=== PATIENT | male | born 1950 | race Caucasian/White ===

== ENCOUNTER → 2021-12-28 08:37 | Outpatient (BNVA) | payer MEDICARE, OTHER, SELFPAY | PROVIDERS: Family Provider Internal Medicine; Visit Provider Family Medicine | DX: Z51.81 Encounter for therapeutic drug level monitoring (principal); Z79.1 Long term (current) use of non-steroidal anti-inflammatories (NSAID); I10 Essential (primary) hypertension; Z00.00 Encounter for general adult medical examination without abnormal findings; E78.00 Pure hypercholesterolemia, unspecified; Z13.220 Encounter for screening for lipoid disorders | CPT/HCPCS: 80053; 80061; 84153; 85025 ==

== ENCOUNTER → 2022-05-10 09:47 | Outpatient (BNVA) | payer MEDICARE, OTHER, SELFPAY | PROVIDERS: Family Provider Internal Medicine; PCP Family Medicine; Visit Provider Internal Medicine Cardiovascular Disease | DX: I47.1 Supraventricular tachycardia (principal); I10 Essential (primary) hypertension; I65.29 Occlusion and stenosis of unspecified carotid artery; Z86.73 Personal history of transient ischemic attack (TIA), and cerebral infarction without residual deficits; E78.00 Pure hypercholesterolemia, unspecified | CPT/HCPCS: 80048; 83735; 84443; 99204 ==

== ENCOUNTER 2022-07-17 10:50 | Outpatient (CLI) | payer MEDICARE, OTHER, SELFPAY ==
--- NOTE | 2022-07-17 11:15 | USCV_ITS ---
Davidson Watts Age: 71 Gender: M : 1950 Exam Date: 07/17/2022 11:52 Ordering Phys: Shahnaz Alexandra MD ([email or web address]) Technologist: Loc Bueno Exam Location: [facility] [place] Indication: carotid stenosis Risk Factors: Previous Vascular Surgery: Right Brachial BP: / Left Brachial BP: / Right Left Velocity (cm/s) Spectral Plaque Velocity (cm/s) Spectral Plaque Syst/Diast Broadening Syst/Diast Broadening 76.10/ 18.40 Prox CCA 66.90 / 11.60 86.20/ 21.00 Mid CCA 61.80 / 10.20 65.70/ 14.50 Distal CCA 46.40 / 7.80 52.30/ 16.60 Prox ICA / 63.20/ 24.20 Mid ICA / 33.90/ 15.10 Distal ICA / 79.60 ECA 98.10 0.73 ICA/CCA Antegrade Vertebral Antegrade 56.50/ 22.30 cm/s 75.00/ 32.00 cm/s Tri Subclavian Tri 87.80 120.2 0 FINDINGS Comparison:. 01/10/18. Known occluded left ICA. Diffuse right carotid scattered calcified plaque and intimal thickening throughout the common carotid arteries and extending through the bifurcation. Antegrade vertebral arteries. CONCLUSIONS Right ICA stenosis < 50%. No interval change in stenosis since prior exam. Known occluded left ICA. Dr. Robyn Lomax DO (Electronically Signed) Final Date: 17 July 2022 13:08 S
== END 2022-07-17 10:51 | disposition home or self-care (01) ==
LOC: RAD 10:52
PROVIDERS: Family Provider Internal Medicine; PCP Family Medicine; Visit Provider Internal Medicine Cardiovascular Disease
DX: I65.23 Occlusion and stenosis of bilateral carotid arteries (principal)
CPT/HCPCS: 93306; 93880

== ENCOUNTER 2022-07-17 10:52 | Outpatient (CLI) | payer MEDICARE, OTHER, SELFPAY ==
--- NOTE | 2022-07-17 12:00 | USCV_ITS ---
Davidson Watts Age: 71 Gender: M : 1950 Exam Date: 07/17/2022 11:15 Ordering Phys: Shahnaz Alexandra MD ([email or web address]) Technologist: Loc Bueno Exam Location: [facility] [place] Indication: SOB, CP, SVT BP: 120 / 82 HR: 58 Rhythm: Other Technical Quality: Adequate MEASUREMENTS (Male / Female) Normal Values 2D ECHO LV Diastolic Diameter PLAX 1.2 cm 4.2 - 5.9 / 3.9 - 5.3 cm LV Systolic Diameter PLAX 0.8 cm IVS Diastolic Thickness 3.4 cm 0.6 - 1.0 / 0.6 - 0.9 cm IVS Systolic Thickness 1.5 cm LVPW Diastolic Thickness 0.0 cm 0.6 - 1.0 / 0.6 - 0.9 cm LVPW Systolic Thickness 1.6 cm LVOT Diameter 2.0 cm LV Ejection Fraction 2D Teich 67.7 % LV Ejection Fraction MOD 2C 68.3 % LV Ejection Fraction 2C AL 71.3 % LA Diameter 3.7 cm LA Width 3.4 cm LA Height 5.7 cm RA Width 4.0 cm RA Height 4.3 cm Aorta at Sinotubular Diameter 2.6 cm IVC Diameter 1.9 cm M-MODE Aortic Annulus Diameter 3.5 cm LA Ao Ratio MM 1.2 MV E Point Septal Separation 0.7 cm DOPPLER AV Peak Velocity 91.5 cm/s LVOT Peak Velocity 63.0 cm/s AV Area Cont Eq vti 2.1 cm squared AV Area Cont Eq pk 2.2 cm squared MV Peak Velocity 85.0 cm/s MV Area PHT 4.5 cm squared Mitral E to A Ratio 0.6 MV E' Velocity 22.0 cm/s Mitral E to MV E' Ratio 6.0 Mitral E to LV E' Lateral Ratio 5.6 Mitral E to LV E' Septal Ratio 6.4 TR Peak Velocity 258.8 cm/s TR Peak Gradient 26.8 mmHg TR Mean Velocity 204.0 cm/s TR Mean Gradient 17.5 mmHg TR Velocity Time Integral 88.6 cm Right Atrial Pressure 3.0 mmHg Pulmonary Artery Systolic Pressu 29.8 mmHg PV Peak Velocity 83.0 cm/s RV Acceleration Time 0.1 s RV Ejection Time 0.3 s RV AcT/ET 0.3 FINDINGS Left Ventricle Normal left ventricular size and systolic function, EF 64 %. Mild left ventricular hypertrophy.no regional wall motion abnormalities. Right Ventricle The right ventricle is normal in size and function. Right Atrium The right atrium is normal in size. Left Atrium The left atrium is normal in size. Mitral Valve No gross abnormalities noted Aortic Valve No gross abnormalities noted Tricuspid Valve Trace to mild tricuspid valve regurgitation. Estimated pulmonary artery peak systolic pressure 30 mmHg Pulmonic Valve Pulmonic valve not well visualized. Pericardium Normal pericardium without effusion. Aorta Normal ascending aorta dimension. IVC Normal inferior vena cava. CONCLUSIONS Normal left ventricular size and systolic function, EF 64 %. Mild left ventricular hypertrophy. No regional wall motion abnormalities. Trace to mild tricuspid valve regurgitation. Estimated pulmonary artery peak systolic pressure 30 mmHg. There is no pericardial effusion. There are no intracardiac masses. No similar previous studies are available for comparison Dr Anson Alcocer MD [facility] (Electronically Signed) Final Date: 17 July 2022 19:07 S
== END 2022-07-17 10:53 | disposition home or self-care (01) ==
LOC: RAD 10:53
PROVIDERS: Family Provider Internal Medicine; PCP Family Medicine; Visit Provider Internal Medicine Cardiovascular Disease
DX: I47.1 Supraventricular tachycardia (principal); R06.02 Shortness of breath; R07.9 Chest pain, unspecified; I07.1 Rheumatic tricuspid insufficiency
CPT/HCPCS: 36415; 82728; 83540; 83550; 85025; 93306; 96372; 99204; J3420

== ENCOUNTER 2022-09-07 08:52 | Outpatient (CLI) | payer MEDICARE, OTHER, SELFPAY ==
--- NOTE | 2022-09-07 | ECG_ITS ---
[facility] Test Date: 2022-09-07 Pat Name: Davidson Watts Department: Room: Gender: Male Logistics And Planning Manager: Janette Meredith : 1950 Requested By: Shahnaz Alexandra Order Number: [id number] Chivo MD: Shahnaz Alexandra M.D. Interpretive Statements NAME OF STUDY: EXERCISE SESTAMIBI STRESS TEST INDICATION: Chest Pain; Dyspnea on Exertion Baseline blood pressure of 154/88 mm Hg, heart rate of 76 beats per minute and oxygen saturation of 92%. EKG showed sinus rhythm with frequent PVC's and PAC's. Non specific ST-T wave changes. ??? The patient exercised for 5 minutes and 9 seconds on a [standard Moiz protocol]. Patient attained a maximum heart rate of 148 beats per minute( 107 % of the maximum predicted heart rate) with a blood pressure at the peak exercise of 182/106 mm Hg, heart rate of 148 bpm and oxygen saturation of 93%. The EKG at the peak exercise revealed sinus tachycardia with frequent PAC's and PVC's. Patient did not have any chest pain or any significant arrhythmis with the exercise.??? During the recovery phase, patient went into SVT with non specific ST-T wave chnages. ??? Blood pressure at the end of the recovery phase was 108/83 mm Hg with a heart rate of 82 beats per minute and oxygen saturation of 93%. ??? CONCLUSION: 1. Normal EKG response to treadmill exercise. 2. No exercise-induced chest pain or cardiac arrhythmia. 3. Fair exercise tolerance, attained a maximum of 7 METs. 4. Baseline hypertension with normal response to exercise. 5. Patient went into SVT 11 minutes into recovery that resolved spontaneously. 6. Perfusion scan will be documented separately. Electronically Signed On 09-17-2022 11:09:01 INFORMATION SECURITY ENGINEER by Shahnaz Alexandra M.D. [email or web address]
[2022-09-07 09:34] VITALS: BMI 31.0
--- NOTE | 2022-09-07 09:35 | NMCV_ITS ---
NM luc perf SPECT r/s* [id number] Davidson Watts Age: 71 Gender: M : 1950 Exam Date: 09/07/2022 09:35 Ordering Phys: Shahnaz Alexandra MD ([email or web address]) Technologist: PETROS Salgado Exam Location: [facility] Indications: SVT STRESS TEST Please see separate stress test report in [facility] for full findings IMAGE PROTOCOL Rest/Stress 1 Exercise Day Radiopharmaceutical Dose (mCi) Administration Site Administered by Rest: Tc-99m 10.9 IV PETROS Reyes Sestamibi Stress:Tc-99m 32.4 IV PETROS Reyes Sestamibi Rest: 07-Sep-2022 60 Discovery 630 Stress: 07-Sep-2022 15 Discovery 630 Radiopharmaceutical was injected at 87 % maximum heart rate. Images obtained in supine and prone position. SPECT RESULTS Technical Quality: Excellent Raw Data Analysis: Normal Image Corrections: No attenuation or motion correction applied Summed Stress Score: 0 Summed Rest Score: 0 Summed Difference Score: 0 PERFUSION FINDINGS SPECT images demonstrate homogeneous tracer distribution throughout the myocardium. FUNCTIONAL RESULTS (calculated via Gated SPECT) Stress Image LV EF (%): 66 Stress EDV (mL):85 TID: 1.51 Stress ESV (mL):29 FUNCTIONAL FINDINGS: The left ventricle is normal in size. Transient Ischemia Dilatation of 1.5. The left ventricular ejection fraction is normal with a value of 66%. There is normal left ventricular wall thickening. IMPRESSIONS 1. Myocardial perfusion imaging is normal. 2. Overall left ventricular systolic function is normal without regional wall motion abnormalities, LVEF=66%. 3. EKG portion of the study will be reported separately. 4. Scan indicates low risk for cardiac events. Shahnaz Alexandra MD (Electronically Signed) Final Date: 09 September 2022 20:00 S
[2022-09-07] MEDS: metoprolol tartrate 1 mg/1 mL SDV 5 mL 5 MG IV (10:57)
[2022-09-07 11:07] VITALS: BP 108/83; PULSE 80
== END 2022-09-07 08:53 | disposition home or self-care (01) ==
LOC: CDL 08:56
PROVIDERS: PCP Family Medicine; Visit Provider Internal Medicine Cardiovascular Disease
DX: I47.1 Supraventricular tachycardia (principal)
CPT/HCPCS: 36415; 78452; 93017; 96374; A9500; J3490

== ENCOUNTER → 2022-09-11 11:09 | Outpatient (BNVA) | payer MEDICARE, OTHER, SELFPAY | PROVIDERS: PCP Family Medicine; Visit Provider Internal Medicine Cardiovascular Disease | DX: I47.1 Supraventricular tachycardia (principal); I10 Essential (primary) hypertension; E78.00 Pure hypercholesterolemia, unspecified; I65.29 Occlusion and stenosis of unspecified carotid artery; Z86.73 Personal history of transient ischemic attack (TIA), and cerebral infarction without residual deficits | CPT/HCPCS: 99214; Q3014 ==

== ENCOUNTER → 2022-10-04 08:23 | Outpatient (BNVA) | payer MEDICARE, OTHER, SELFPAY | PROVIDERS: PCP Family Medicine; Visit Provider Family Medicine | DX: Z51.81 Encounter for therapeutic drug level monitoring (principal); Z13.220 Encounter for screening for lipoid disorders; R00.2 Palpitations | CPT/HCPCS: 80053; 80061; 83735; 85025 ==

== ENCOUNTER 2023-01-16 06:15 | Emergency (ER) | payer MEDICARE, OTHER, SELFPAY ==
[2023-01-16 06:20] VITALS: BMI 30.7
[2023-01-16 06:23] VITALS: BP 113/75; PULSE 58; RESP 17; TEMP 36.6; O2SAT 96
[2023-01-16 06:30] VITALS: O2SAT 95
--- NOTE | 2023-01-16 06:32 | W.ED.ALLEREA ---
HPI - Allergic Reaction General: Chief complaint: Allergic Reaction Stated complaint: Tongue swollen, trouble talking Time Seen by Provider: 01/16/23 06:21 Source: patient Mode of arrival: ambulatory History of Present Illness: HPI narrative: 72-year-old male presents emergency room complaining of swelling of the lips and the right cheek it began yesterday then overnight he began to notice some swelling of his tongue exam difficulty breathing or swallowing but his voice is somewhat muffled because of the swelling of his tongue is difficult time with enunciation of words. He denies any chest pain no swelling of the lower extremities. Onset (ago): day(s) Exposure: medication (Possibly lisinopril) Associated symptoms: Reports tongue swelling; Deny abdominal pain, difficulty breathing, dysphagia, dizziness, facial swelling, hoarseness, itching, lip swelling, nausea, rash or vomiting Severity: mild Treatment prior to arrival: none Previous Allergic Reaction History: none Review of Systems Const: Denies: fever(s), chills, body aches, change in appetite, fatigue or malaise ENMT: Reports: swelling of lips/tongue; Denies: hoarseness Card: Denies: chest pain, edema, dyspnea on exertion or orthopnea Resp: Denies: dyspnea, productive cough or non-productive cough GI: Denies: abdominal pain, nausea, vomiting or dysphagia : Denies: dysuria, urinary frequency or urinary urgency Skin/Breast: Denies: rash or pruritus Neuro: Denies: dizziness All/Imm: Reports: tongue swelling; Denies: facial swelling PFSH ED PFSH: Medical History Carotid stenosis History of CVA (cerebrovascular accident) Follows with Dr Osuna - 04/27/2016 Hypercholesterolemia Surgical History S/P hernia surgery S/P knee surgery Family History Father CHF (congestive heart failure) Hypertension Diabetes Mother Stroke Hypertension Diabetes Social History Smoking and tobacco status: never smoked Physical Exam Const: GENERAL APPEARANCE: cooperative and comfortable ORIENTATION/CONSCIOUSNESS: Yes awake, Yes oriented to person, Yes oriented to place and Yes oriented to time HENMT: COMMON NORMALS: normocephalic, atraumatic and hearing grossly normal bilaterally HEAD & SCALP: normocephalic and atraumatic OTHER: Mild swelling of the tongue slightly asymmetric greater on the right than the left otherwise oropharynx normal Resp: COMMON NORMALS: normal respiratory effort, No retractions, No use of accessory muscles and clear to auscultation bilaterally AUSCULTATION: clear to auscultation bilaterally Cardio: COMMON NORMALS: regular rate, regular rhythm and No murmurs present (Cardio) RATE: regular rate RHYTHM: regular rhythm GI: COMMON NORMALS: Soft to palpation and No hepatosplenomegaly present AUSCULTATION: Yes normoactive bowel sounds PALPATION: Yes Soft to palpation, No Tenderness to palpation present (GI), No Guarding due to palpation present (GI) and Yes No hepatosplenomegaly present Extremity: COMMON NORMALS: normal to inspection, capillary refill normal, no clubbing, cyanosis or edema, no calf tenderness and no pedal edema Neuro: SENSORIUM/ORIENTATION: Yes oriented to person, Yes oriented to place and Yes oriented to time Skin: COMMON NORMALS: no rashes or lesions noted GENERAL SKIN EXAM: no rashes or lesions noted Course Vital Signs: Vital signs: Vital Signs Temperature 97.9 F 01/16/23 06:23 Pulse Rate 58 L 01/16/23 06:23 Respiratory Rate 17 01/16/23 06:23 Blood Pressure 113/75 01/16/23 06:23 Pulse Oximetry 95 01/16/23 06:30 Oxygen Delivery Me thod Room Air 01/16/23 06:30 MDM - Allergic Reaction Medical Decision Making Significant improvement with the steroids H2 blockers and antihistamines. He is feeling much better we will stop him stop his lisinopril change him to valsartan 80 mg daily him follow-up with his doctor with a blood pressure log from home within the next 7 to 10 days return if he has worsening problems difficulty breathing or swallowing. Medical Records I reviewed the patient's medical records. Lab Data I reviewed the patient's lab results. Discharge Plan Discharge Patient Disposition: Home Clinical Impression: Allergic reaction Condition: Stable Prescriptions: New valsartan 80 mg tablet 80 mg PO DAILY Qty: 30 0RF Medrol (Brijesh) 4 mg tablets,dose pack See Rx Instructions .ROUTE .COMPLEX Qty: 21 0RF Rx Instructions: orally per package directions Discontinued lisinopril 10 mg tablet 10 mg PO DAILY Qty: 90 2RF No Action clopidogrel 75 mg tablet 75 mg PO DAILY glucos sul [id number] 550-30-1 mg capsule 1 cap PO BID latanoprost 0.005 % drops 1 drp ophthalmic (eye) DAILY metoprolol tartrate 25 mg tablet 25 mg PO BID Qty: 180 2RF meloxicam 7.5 mg tablet 7.5 mg PO DAILY Qty: 21 0RF atorvastatin 40 mg tablet See Rx Instructions .ROUTE .COMPLEX Qty: 90 3RF Dose Instruction: TAKE 1 TABLET BY MOUTH IN THE EVENING FOR CHOLESTEROL Rx Instructions: TAKE 1 TABLET BY MOUTH IN THE EVENING FOR CHOLESTEROL Discharge Orders: Discharge ED (Routine); Ordered 01/16/23 Ordered By: Azael Berman Referrals: Vineet Saucedo MD [Primary Care Provider] - Discharge Diet: Usual diet Discharge Activity: Increase activity as tolerated Patient Instructions: Opioid Safety, Pain Management Activity Restrictions/Additional Instructions: You were seen today after an allergic reaction. Suspected cause of the reaction was your lisinopril. Stop your lisinopril start valsartan 80 mg once daily. You should follow-up with your primary care doctor in 7 to 10 days. Keep a blood pressure monitoring log at home and bring it with you to your next doctor's appointment. Also start the oral prednisone taper tomorrow. 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
[2023-01-16] MEDS: dexamethasone 10 mg/mL INJ IVP (06:35)
[2023-01-16] MEDS: diphenhydrAMINE 50 mg/mL SDV 1mL IVP (06:35)
== END 2023-01-16 08:05 | disposition home or self-care (01) ==
PROVIDERS: Emergency Provider Family Medicine; PCP Family Medicine
DX: T78.40XA Allergy, unspecified, initial encounter (principal); Z79.02 Long term (current) use of antithrombotics/antiplatelets; Z86.73 Personal history of transient ischemic attack (TIA), and cerebral infarction without residual deficits
CPT/HCPCS: 96374; 96375; 99284; J1100; J1200; J3490

== ENCOUNTER 2023-03-05 16:04 | Emergency (ER) | payer MEDICARE, OTHER, SELFPAY ==
[2023-03-05 16:29] VITALS: BP 101/70; PULSE 93; RESP 18; TEMP 36.7; O2SAT 97; BMI 28.2
--- NOTE | 2023-03-05 17:33 | W.ED.HA ---
HPI - Headache General: Chief Complaint: Headache Stated Complaint: headache, eye problems Time Seen by Provider: 03/05/23 17:20 Source: patient Mode of arrival: ambulatory Limitations: no limitations History of Present Illness: 72-year-old male states that he had a headache this afternoon at 1 PM states it gradually worsened states he had some blurry vision with a headache and is since resolved over the last 2 hours he denies any headache currently denies any vision deficits currently he had no slurred speech or weakness states he is concerned as he had a history of stroke before denies any chest pain. Associated symptoms: Deny chest pain, fever(s), nausea, rash or vomiting Review of Systems Const: Denies: fever(s) or chills Eyes: Reports: blurry vision; Denies: eye discomfort ENMT: Denies: throat pain or dental pain Card: Denies: chest pain Resp: Denies: dyspnea GI: Denies: abdominal pain, nausea, vomiting or diarrhea Musc: Denies: neck pain or back pain Skin/Breast: Denies: rash Neuro: Reports: headache(s) Psych: Denies: depression PFSH ED PFSH: Medical History Carotid stenosis History of CVA (cerebrovascular accident) Follows with Dr Osuna - 04/27/2016 Hypercholesterolemia Surgical History S/P hernia surgery S/P knee surgery Family History Father CHF (congestive heart failure) Hypertension Diabetes Mother Stroke Hypertension Diabetes Social History Smoking and tobacco status: never smoked Physical Exam Const: COMMON NORMALS: no acute distress, patient oriented x3 and healthy appearing HENMT: COMMON NORMALS: normocephalic and atraumatic HEAD & SCALP: normocephalic and atraumatic Eye: COMMON NORMALS: Equal, round and reactive pupils present and EOMs intact bilaterally PUPIL: Yes Equal, round and reactive pupils present Neck/C-Spine: COMMON NORMALS: full ROM and supple Chest: COMMONS NORMALS: normal inspection of the chest and normal palpation of entire chest wall Resp: COMMON NORMALS: normal respiratory effort, No retractions, No use of accessory muscles and clear to auscultation bilaterally AUSCULTATION: clear to auscultation bilaterally Cardio: COMMON NORMALS: regular rate, regular rhythm and No murmurs present (Cardio) RATE: regular rate RHYTHM: regular rhythm GI: COMMON NORMALS: Normal to inspection, nondistended, normoactive bowel sounds present, Soft to palpation, non-tender and no masses PALPATION: Yes Soft to palpation Extremity: COMMON NORMALS: normal to inspection and full ROM Neuro: COMMON NORMALS: patient oriented x3, moves all extremities and no focal motor deficits CRANIAL NERVES: Yes CN normal except as noted SPEECH: speech normal GAIT: Yes Normal gait present MOTOR EXAM: 5/5 motor strength present throughout Psych: COMMON NORMALS: mental status grossly normal, Normal thought process present and cooperative THOUGHT PROCESS: Normal thought process present Skin: COMMON NORMALS: no rashes or lesions noted and no wounds GENERAL SKIN EXAM: no rashes or lesions noted Course Vital Signs: Vital signs: Vital Signs Temperature 98.0 F 03/05/23 16:29 Pulse Rate 93 03/05/23 16:29 Respiratory Rate 18 03/05/23 16:29 Blood Pressure 101/70 03/05/23 16:29 Pulse Oximetry 97 03/05/23 16:29 Oxygen Delivery Me thod Room Air 03/05/23 16:29 MDM - Headache Medical Decision Making Patient presents here with a headache that is since resolved this could have been a tension headache or migraine he states that its not the worst headache of his life he did have some blurry vision no other neurodeficits and he states that resolved after the headache resolved. He is on Plavix and statin does have a history of stroke no signs of acute stroke here no signs of a brain bleed his headaches completely resolved his exam here is benign he is stable for discharge follow-up with PCP as he has a appointment already scheduled next week and he is return if worsening. Discharge Plan Discharge Patient Disposition: Home Clinical Impression: Headache Condition: Stable Prescriptions: No Action valsartan 80 mg tablet 80 mg PO DAILY Qty: 90 0RF clopidogrel 75 mg tablet 75 mg PO DAILY glucos sul [id number]-C-Mn 550-30-1 mg capsule 1 cap PO BID latanoprost 0.005 % drops 1 drp ophthalmic (eye) DAILY atorvastatin 40 mg tablet See Rx Instructions .ROUTE .COMPLEX Qty: 90 3RF Dose Instruction: TAKE 1 TABLET BY MOUTH IN THE EVENING FOR CHOLESTEROL Rx Instructions: TAKE 1 TABLET BY MOUTH IN THE EVENING FOR CHOLESTEROL metoprolol tartrate 25 mg tablet 25 mg PO BID Qty: 180 2RF Discharge Orders: Discharge ED (Routine); Ordered 03/05/23 Ordered By: Liseth Love Referrals: Vineet Saucedo MD [Primary Care Provider] - 1-3 days Discharge Diet: Advance as tolerated Discharge Activity: Resume usual activity Patient Instructions: General Headache (ED) Coding Level of Care Code 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
== END 2023-03-05 17:44 | disposition home or self-care (01) ==
PROVIDERS: Emergency Provider Emergency Medicine; PCP Family Medicine
DX: R51.9 Headache, unspecified (principal); Z79.01 Long term (current) use of anticoagulants; Z79.02 Long term (current) use of antithrombotics/antiplatelets; Z79.899 Other long term (current) drug therapy; Z86.73 Personal history of transient ischemic attack (TIA), and cerebral infarction without residual deficits
CPT/HCPCS: 99282

== ENCOUNTER → 2023-03-12 08:10 | Outpatient (BNVA) | payer MEDICARE, OTHER, SELFPAY | PROVIDERS: PCP Family Medicine; Visit Provider Family Medicine | DX: R35.0 Frequency of micturition (principal); Z51.81 Encounter for therapeutic drug level monitoring | CPT/HCPCS: 80053; 84153; 85025 ==

== ENCOUNTER 2023-03-20 08:10 | Outpatient (CLI) | payer MEDICARE, OTHER, SELFPAY ==
--- NOTE | 2023-03-20 08:30 | FL_ITS ---
WS: [id number] ESOPHAGRAM WITH FLUOROSCOPY HISTORY: Dysphsia COMPARISON: None available. FLUOROSCOPY TIME: 1min [id number] # of spot films: Esophagus and swallowing function: Patient swallowed the barium mixture without difficulty. Beginning just below the mid esophageal level is a very coarse irregular nodular mucosal submucosal pattern th at extends to the esophagogastric junction. No Gastroesophageal reflux: Some of the nodular pattern may be secondary to intraluminal filling defects. Overall esophageal lume n diameter is reduced by over 50% throughout this long segment of at least 6 cm. Hiatal hernia: No hiatal hernia. FL/FL barium swallow [id number] IMPRESSION: The very irregular mucosal pattern persisted with minimal variation during several swallows but still could represent to some degree retained food debris proximal to a stricture at the esophagogastric junction however isn't p ossible to distinguish this from submucosal mucosal hypertrophic changes from e ither an inflammatory, infectious or neoplastic process. Recommend endoscopy fo r further assessment
== END 2023-03-20 08:11 | disposition home or self-care (01) ==
PROVIDERS: PCP Family Medicine; Visit Provider Family Medicine
DX: R13.10 Dysphagia, unspecified (principal); R93.3 Abnormal findings on diagnostic imaging of other parts of digestive tract
CPT/HCPCS: 74220

== ENCOUNTER → 2023-04-03 08:49 | Outpatient (BNVA) | payer MEDICARE, OTHER, SELFPAY | PROVIDERS: PCP Family Medicine; Visit Provider Surgery | DX: R13.10 Dysphagia, unspecified (principal) | CPT/HCPCS: 99203 ==

== ENCOUNTER 2023-04-06 11:26 | Emergency (ER) | payer MEDICARE, OTHER, SELFPAY ==
[2023-04-06 11:35] VITALS: PULSE 50; RESP 14; TEMP 36.8; O2SAT 96; BMI 28.1
[2023-04-06 11:39] VITALS: BP 86/56
--- NOTE | 2023-04-06 11:47 | USCV_ITS ---
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 Thrombus in right subclavian vein extends from proximal to distal and is noncompressible. Remainder of the upper extremity veins are patent. D/w Yevgeniy CORTES @ 1530 Leonard Zimmerman MD (Electronically Signed) Final Date: 06 April 2023 15:38 S
--- NOTE | 2023-04-06 11:47 | ED_ITS ---
Documented by User: SOPHIA Lara 04/06/23 17:25 HPI - Extremity Problem General: Chief complaint: Extremity Injury, Upper Stated complaint: sent by uc/lump in RT arm after blood draw Time Seen by Provider: 04/06/23 11:43 Source: patient Mode of arrival: ambulatory Limitations: no limitations History of Present Illness: 72yo Male presents with significant other for right arm swelling and pain that started 2 days ago. Patient reports he was seen at [facility] 1 week ago and had blood drawn in that arm. States he has not had any injury or trauma that he is aware of to that arm. Patient reports that he does take Plavix daily. Patient also was reported to have low blood pressure in triage and he stated he was recently placed on a new blood pressure medication. He denies fall, trauma, known injury, chest pain, lightheadedness, dizziness, any other concern at this time. Associated symptoms: Deny chest pain, fever(s) or rash Review of Systems Const: Denies: fever(s), chills or body aches Card: Denies: chest pain Resp: Denies: dyspnea GI: Denies: abdominal pain Musc: Reports: extremity pain (right arm) and extremity swelling (right arm) Skin/Breast: Denies: rash or erythema Neuro: Denies: headache(s) PFSH ED PFSH: Medical History Carotid stenosis History of CVA (cerebrovascular accident) Follows with Dr Osuna - 04/27/2016 Hypercholesterolemia Surgical History Hx of colonoscopy At least 5 years, Polyps were found S/P hernia surgery S/P knee surgery Family History Father CHF (congestive heart failure) Hypertension Diabetes Mother Stroke Hypertension Diabetes Social History Smoking and tobacco status: never smoked Physical Exam Const: COMMON NORMALS: no acute distress, patient oriented x3 and alert GENERAL APPEARANCE: cooperative OTHER: Patient is ambulatory to the exam room unassisted. He is sitting upright on stretcher in no acute distress. Significant other is at bedside HENMT: COMMON NORMALS: normocephalic, atraumatic and Normal external nose present HEAD & SCALP: normocephalic and atraumatic NOSE: Normal external nose present MOUTH: lip normal Eye: GENERAL EYE: appearance normal, both eyes and all related structures Neck/C-Spine: COMMON NORMALS: full ROM Chest: CHEST: Yes Symmetrical chest wall rise Resp: COMMON NORMALS: normal respiratory effort EFFORT & INSPECTION: No respiratory distress Cardio: COMMON NORMALS: regular rate RATE: regular rate OTHER: BP during exam 111/62 Extremity: OTHER: generalized swelling right arm. Tenderness to upper inner arm. +movement dista l. Radial pulse 2+, capillary refill < 3 sec Neuro: COMMON NORMALS: patient oriented x3 SENSORIUM/ORIENTATION: Yes alert Psych: COMMON NORMALS: cooperative Skin: COMMON NORMALS: no rashes or lesions noted GENERAL SKIN EXAM: no rashes or lesions noted Course ED course: EKG indicates a vent rate of 68, SR with PVC 1530: Notified by radiology that the ultrasound revealed extensive occlusive right jugular and right subclavian thrombus Chart review reveals carotid ultrasound 07/18 which indicates known occluded left ICA, right ICA stenosis less than 50% Reevaluation(s): Reevaluation #1: Discussed ultrasound findings with patient and family. Patient reports he has a history of clot in his neck, which caused a stroke. Discussed with patient this is somewhat different and we would proceed with labs and potential admission Time: 15:40 Consultations: Consultation #1: Dr Jaffe, hospitalist. Discussed HPI and ultrasound findings. Advise labs are pending. He will come down to see the patient. Time: 16:10 Vital Signs: Vital signs: Vital Signs Temperature 98.2 F 04/06/23 11:35 Pulse Rate 62 04/06/23 11:54 Respiratory Rate 15 04/06/23 11:54 Blood Pressure 111/62 04/06/23 11:54 Pulse Oximetry 97 04/06/23 11:54 Oxygen Delivery Me thod Room Air 04/06/23 11:35 MDM - Extremity (Nontraumatic) Medical Decision Making 72yo male here with his significant other for evaluation of right arm pain and swelling that have been ongoing for the past 2 days. Patient reports he had blood work about a week ago in that arm and does not know if it is related. Patient states that he does take Plavix daily. He was also reported to have hypotension in triage he denies any fall, trauma, known injury, headache, lightheadedness, dizziness, chest pain. Patient is nontoxic in appearance. Vital signs are stable. Ultrasound reveals an extensive thrombus to the right jugular and right subclavian. The thrombus in the right subclavian vein extends from proximal to distal and is noncompressible. Given this, labs were obtained and consult to hospitalist for admission. Discussed case with Dr. López, who who will consult on the patient and come to the ER to evaluate him with a plan of discharge on Eliquis. Differential Diagnosis Likely superficial thrombophlebitis and deep venous thrombosis of upper extremity Lab Data I reviewed the patient's lab results. 04/06/23 16:10 04/06/23 16:10 Laboratory Results WBC 8.7 10^3/uL (4.0-10.0) 04/06/23 16:10 RBC 5.32 10^6/uL (4.1-5.3) H 04/06/23 16:10 Hgb 15.7 g/dL (11.7-16.6) 04/06/23 16:10 Hct 47.7 % (42.0-52.0) 04/06/23 16:10 MCV 89.7 fl (80-94) 04/06/23 16:10 MCH 29.5 pg (28.0-34.0) 04/06/23 16:10 MCHC 32.9 g/dL (30.0-36.0) 04/06/23 16:10 RDW 13.9 % (12.1-15.1) 04/06/23 16:10 Plt Count 235 10^3/cmm (130-400) 04/06/23 16:10 MPV 12.0 fL (7.4-10.4) H 04/06/23 16:10 Neut % (Auto) 70.3 % 04/06/23 16:10 Lymph % (Auto) 18.3 % 04/06/23 16:10 [place] % (Auto) 9.9 % 04/06/23 16:10 Eos % (Auto) 0.9 % 04/06/23 16:10 Baso % (Auto) 0.5 % 04/06/23 16:10 Neut # (Auto) 6.08 10^3/uL (1.8-7.7) 04/06/23 16:10 Lymph # (Auto) 1.6 10^3/uL (0.8-4.8) 04/06/23 16:10 [place] # (Auto) 0.9 10^3/uL (0.2-0.9) 04/06/23 16:10 Eos # (Auto) 0.1 10^3/uL (0.0-0.8) 04/06/23 16:10 Baso # (Auto) 0.0 10^3/uL (0.0-0.1) 04/06/23 16:10 Nucleated RBC % (auto) 0 % 04/06/23 16:10 Nucleated RBCs # 0.0 /100WBC 04/06/23 16:10 PT 13.80 SECONDS (12.1-14.9) 04/06/23 16:10 INR 1.03 (0.8-1.2) 04/06/23 16:10 APTT 29.8 SECONDS (23.9-36.7) 04/06/23 16:10 Sodium 137 mmol/L (136-145) 04/06/23 16:10 Potassium 4.4 mmol/L (3.5-5.1) 04/06/23 16:10 Chloride 103 mmol/L (98-107) 04/06/23 16:10 Carbon Dioxide 23 mmol/L (22-29) 04/06/23 16:10 Anion Gap 15.4 (5-19) 04/06/23 16:10 BUN 12 mg/dL (8-23) 04/06/23 16:10 Creatinine 0.7 mg/dL (0.7-1.2) 04/06/23 16:10 GFR Calculation Not Reportable 04/06/23 16:10 Glucose 85 mg/dL (65-115) 04/06/23 16:10 Calculated Osmolality 283 mOsm/kg (285-295) L 04/06/23 16:10 Calcium 9.5 mg/dL (8.5-10.5) 04/06/23 16:10 Total Bilirubin 1.3 mg/dL (0.15-1.2) H 04/06/23 16:10 AST 15 U/L (0-40) 04/06/23 16:10 ALT 17 U/L (0-41) 04/06/23 16:10 Alkaline Phosphatase 126 U/L (40-130) 04/06/23 16:10 Total Protein 6.3 g/dL (6.6-8.7) L 04/06/23 16:10 Albumin 3.7 g/dL (3.5-5.2) 04/06/23 16:10 Globulin 2.6 g/dL (1.3-4.6) 04/06/23 16:10 Carcinoembryonic Ag 2.1 ng/mL (0.0-4.7) 04/06/23 16:10 CA 125 Antigen 12.9 U/mL (0-35) 04/06/23 16:10 Prostate Specific Ag 1.230 ng/mL (0-4) 04/06/23 16:10 Discharge Plan Discharge Patient Disposition: Home Clinical Impression: Acute internal jugular vein thrombosis, Subclavian vein thromboembolism, acute, Arm swelling Condition: Stable Prescriptions: New Eliquis DVT-PE Treat 30D Start 5 mg (74 tabs) tablets,dose pack See Rx Instructions .ROUTE .COMPLEX Qty: 74 0RF Rx Instructions: orally per package directions Continued valsartan 80 mg tablet 80 mg PO DAILY Qty: 90 0RF omeprazole 40 mg capsule,delayed release(DR/EC) 1 cap PO DAILY clopidogrel 75 mg tablet 75 mg PO DAILY glucos sul [id number] 550-30-1 mg capsule 1 cap PO BID latanoprost 0.005 % drops 1 drp ophthalmic (eye) QPM metoprolol tartrate 25 mg tablet 25 mg PO BID Qty: 180 2RF atorvastatin 40 mg tablet 40 mg PO QPM Discharge Orders: Discharge ED (Routine); Ordered 04/06/23 Ordered By: Rick Ang Referrals: Shoaib Jaffe MD [Hospitalist] - Vineet Saucedo MD [Primary Care Provider] - 4-7 days Discharge Diet: Usual diet Discharge Activity: Limit activity as instructed Patient Instructions: Apixaban (By mouth), Deep Vein Thrombosis (ED) Activity Restrictions/Additional Instructions: Thank you for visiting the emergency department. You were seen about a for arm swelling. The most likely cause of this is related to blood clot in the veins of your neck and chest. You will be initiated on anticoagulation. Please follow all instructions given by Dr. Jaffe. Return for worsening symptoms, new numbness or uncontrolled pain, any shortness of breath or chest pain, any new neurologic symptoms, any falls or bleeding, or anything else that you are concerned about and feel needs emergency department evaluation. Coding Level of Care Code ED Manager Transport for Chg Fwd Documented by User: Rick Ang MD 04/10/23 17:45 HPI - Extremity Problem General: Chief complaint: Extremity Injury, Upper Stated complaint: sent by uc/lump in RT arm after blood draw Time Seen by Provider: 04/06/23 11:43 [facility] ED PFSH: Medical History Carotid stenosis History of CVA (cerebrovascular accident) Follows with Dr Osuna - 04/27/2016 Hypercholesterolemia Surgical History Hx of colonoscopy At least 5 years, Polyps were found S/P hernia surgery S/P knee surgery Family History Father CHF (congestive heart failure) Hypertension Diabetes Mother Stroke Hypertension Diabetes Social History Smoking and tobacco status: never smoked Course Vital Signs: Vital signs: Vital Signs Temperature 98.2 F 04/06/23 11:35 Pulse Rate 62 04/06/23 11:54 Respiratory Rate 15 04/06/23 11:54 Blood Pressure 111/62 04/06/23 11:54 Pulse Oximetry 97 04/06/23 11:54 Oxygen Delivery Me thod Room Air 04/06/23 11:35 MDM - Extremity (Nontraumatic) Medical Decision Making 72yo male here with his significant other for evaluation of right arm pain and swelling that have been ongoing for the past 2 days. Patient reports he had blood work about a week ago in that arm and does not know if it is related. Patient states that he does take Plavix daily. He was also reported to have hypotension in triage he denies any fall, trauma, known injury, headache, lightheadedness, dizziness, chest pain. Patient is nontoxic in appearance. Vital signs are stable. Ultrasound reveals an extensive thrombus to the right jugular and right subclavian. The thrombus in the right subclavian vein extends from proximal to distal and is noncompressible. Given this, labs were obtained and consult to hospitalist for admission. Discussed case with Dr. López, who who will consult on the patient and come to the ER to evaluate him with a [facility]. I discussed this case with Yevgeniy CORTES. I personally saw and evaluated the patient. I reviewed labs and imaging as well as documentation. Rick Ang MD Emergency Medicine Lab Data 04/06/23 16:10 04/06/23 16:10 Laboratory Results WBC 8.7 10^3/uL (4.0-10.0) 04/06/23 16:10 RBC 5.32 10^6/uL (4.1-5.3) H 04/06/23 16:10 Hgb 15.7 g/dL (11.7-16.6) 04/06/23 16:10 Hct 47.7 % (42.0-52.0) 04/06/23 16:10 MCV 89.7 fl (80-94) 04/06/23 16:10 MCH 29.5 pg (28.0-34.0) 04/06/23 16:10 MCHC 32.9 g/dL (30.0-36.0) 04/06/23 16:10 RDW 13.9 % (12.1-15.1) 04/06/23 16:10 Plt Count 235 10^3/cmm (130-400) 04/06/23 16:10 MPV 12.0 fL (7.4-10.4) H 04/06/23 16:10 Neut % (Auto) 70.3 % 04/06/23 16:10 Lymph % (Auto) 18.3 % 04/06/23 16:10 [place] % (Auto) 9.9 % 04/06/23 16:10 Eos % (Auto) 0.9 % 04/06/23 16:10 Baso % (Auto) 0.5 % 04/06/23 16:10 Neut # (Auto) 6.08 10^3/uL (1.8-7.7) 04/06/23 16:10 Lymph # (Auto) 1.6 10^3/uL (0.8-4.8) 04/06/23 16:10 [place] # (Auto) 0.9 10^3/uL (0.2-0.9) 04/06/23 16:10 Eos # (Auto) 0.1 10^3/uL (0.0-0.8) 04/06/23 16:10 Baso # (Auto) 0.0 10^3/uL (0.0-0.1) 04/06/23 16:10 Nucleated RBC % (auto) 0 % 04/06/23 16:10 Nucleated RBCs # 0.0 /100WBC 04/06/23 16:10 PT 13.80 SECONDS (12.1-14.9) 04/06/23 16:10 INR 1.03 (0.8-1.2) 04/06/23 16:10 APTT 29.8 SECONDS (23.9-36.7) 04/06/23 16:10 Sodium 137 mmol/L (136-145) 04/06/23 16:10 Potassium 4.4 mmol/L (3.5-5.1) 04/06/23 16:10 Chloride 103 mmol/L (98-107) 04/06/23 16:10 Carbon Dioxide 23 mmol/L (22-29) 04/06/23 16:10 Anion Gap 15.4 (5-19) 04/06/23 16:10 BUN 12 mg/dL (8-23) 04/06/23 16:10 Creatinine 0.7 mg/dL (0.7-1.2) 04/06/23 16:10 GFR Calculation Not Reportable 04/06/23 16:10 Glucose 85 mg/dL (65-115) 04/06/23 16:10 Calculated Osmolality 283 mOsm/kg (285-295) L 04/06/23 16:10 Calcium 9.5 mg/dL (8.5-10.5) 04/06/23 16:10 Total Bilirubin 1.3 mg/dL (0.15-1.2) H 04/06/23 16:10 AST 15 U/L (0-40) 04/06/23 16:10 ALT 17 U/L (0-41) 04/06/23 16:10 Alkaline Phosphatase 126 U/L (40-130) 04/06/23 16:10 Total Protein 6.3 g/dL (6.6-8.7) L 04/06/23 16:10 Albumin 3.7 g/dL (3.5-5.2) 04/06/23 16:10 Globulin 2.6 g/dL (1.3-4.6) 04/06/23 16:10 Carcinoembryonic Ag 2.1 ng/mL (0.0-4.7) 04/06/23 16:10 CA 125 Antigen 12.9 U/mL (0-35) 04/06/23 16:10 Prostate Specific Ag 1.230 ng/mL (0-4) 04/06/23 16:10 Discharge Plan Discharge Patient Disposition: Home Clinical Impression: Acute internal jugular vein thrombosis, Subclavian vein thromboembolism, acute, Arm swelling Condition: Stable Prescriptions: [facility] DVT-PE Treat 30D Start 5 mg (74 tabs) tablets,dose pack See Rx Instructions .ROUTE .COMPLEX Qty: 74 0RF Rx Instructions: orally per package directions Continued valsartan 80 mg tablet 80 mg PO DAILY Qty: 90 0RF omeprazole 40 mg capsule,delayed release(DR/EC) 1 cap PO DAILY clopidogrel 75 mg tablet 75 mg PO DAILY glucos sul [id number]-C-Mn 550-30-1 mg capsule 1 cap PO BID latanoprost 0.005 % drops 1 drp ophthalmic (eye) QPM metoprolol tartrate 25 mg tablet 25 mg PO BID Qty: 180 2RF atorvastatin 40 mg tablet 40 mg PO QPM Discharge Orders: Discharge ED (Routine); Ordered 04/06/23 Ordered By: Rick Ang Referrals: Shoaib Jaffe MD [Hospitalist] - Vineet Saucedo MD [Primary Care Provider] - 4-7 days Discharge Diet: Usual diet Discharge Activity: Limit activity as instructed Patient Instructions: Apixaban (By mouth), Deep Vein Thrombosis (ED) Activity Restrictions/Additional Instructions: Thank you for visiting the emergency department. You were seen about a for arm swelling. The most likely cause of this is related to blood clot in the veins of your neck and chest. You will be initiated on anticoagulation. Please follow all instructions given by Dr. Jaffe. Return for worsening symptoms, new numbness or uncontrolled pain, any shortness of breath or chest pain, any new neurologic symptoms, any falls or bleeding, or anything else that you are concerned about and feel needs emergency department evaluation. Coding Level of Care Code ED Manager Transport for [place]
--- NOTE | 2023-04-06 11:47 | ECG_ITS ---
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 Measurements Intervals [place] Rate: 68 P: 60 MD: 156 QRS: 66 QRSD: 89 T: 63 QT: 365 QTc: 390 Interpretive Statements SINUS RHYTHM WITH FREQUENT VENTRICULAR PREMATURE COMPLEXES ABNORMAL RHYTHM ECG Compared to ECG 04/27/2016 10:03:44 Ventricular premature complex(es) now present T-wave abnormality no longer present Electronically Signed On 04-06-2023 12:01:44 CDT by Shahnaz Alexandra M.D. [email or web address] medical [email or web address]/[id number]
[2023-04-06 11:54] VITALS: BP 111/62; PULSE 62; RESP 15; O2SAT 97
[2023-04-06 16:29] LABS: Basophils % 0.5 %; Eosinophils # 0.1 10^3/uL (0.0-0.8); Eosinophils % 0.9 %; Hematocrit 47.7 % (42.0-52.0); Hemoglobin 15.7 g/dL (11.7-16.6); Lymphocytes # 1.6 10^3/uL (0.8-4.8); Lymphocytes % 18.3 %; Mean Corpuscular HGB Conc 32.9 g/dL (30.0-36.0); Mean Corpuscular Hemoglobin 29.5 pg (28.0-34.0); Mean Corpuscular Volume 89.7 fl (80-94); Monocytes # 0.9 10^3/uL (0.2-0.9); Monocytes % 9.9 %; Neutrophils # 6.08 10^3/uL (1.8-7.7); Neutrophils % 70.3 %; Nucleated Red Blood Cells % 0 %; Platelet Count 235 10^3/cmm (130-400); Red Blood Count 5.32 10^6/uL (4.1-5.3); Red Cell Distribution Width 13.9 % (12.1-15.1); White Blood Count 8.7 10^3/uL (4.0-10.0)
[2023-04-06 16:38] LABS: INR 1.03 (0.8-1.2)
[2023-04-06 16:39] LABS: Partial Thromboplastin Time 29.8 SECONDS (23.9-36.7)
[2023-04-06 17:05] LABS: Alanine Aminotransferase 17 U/L (0-41); Albumin Level 3.7 g/dL (3.5-5.2); Alkaline Phosphatase 126 U/L (40-130); Anion Gap 15.4 (5-19); Aspartate Amino Transferase 15 U/L (0-40); Blood Urea Nitrogen 12 mg/dL (8-23); Calcium 9.5 mg/dL (8.5-10.5); Carbon Dioxide 23 mmol/L (22-29); Chloride 103 mmol/L (98-107); Globulin 2.6 g/dL (1.3-4.6); Glucose 85 mg/dL (65-115); Osmolality Calculated 283 mOsm/kg (285-295); Potassium 4.4 mmol/L (3.5-5.1); Sodium 137 mmol/L (136-145); Total Bilirubin 1.3 mg/dL (0.15-1.2); Total Protein 6.3 g/dL (6.6-8.7)
--- NOTE | 2023-04-06 17:49 | PM.CONSULT ---
Providers/Reason For Consult Consulting Physician/Specialty*: Dr. Jaffe/internal medicine Reason for Consult*: Right upper limb DVT Requesting Physician: Dr. Ang/ER Primary Care Provider: Vineet Saucedo MD History of Present Illness History of Present Illness Davidson Watts is a 72 year old male with past medical history of stroke on Plavix, Hypertension, hyperlipidemia who is being worked up as an outpatient for 35 pound weight loss over the last 1 month, change in voice and food getting stuck in throat with possibility of EGD within the next 1 week with surgery as an outpatient presents to the ER because of swelling of his right arm which started 2 days ago. As per the patient he had an IV line placed and a blood draw done a week ago but his symptoms only started 2 days ago. Complaining of mild numbness but denies any difficulty in breathing, chest pain, pain, nausea, vomiting. Work-up in the ER was consistent with DVT of right upper arm. Review of Systems General: Reports: 10 or more systems reviewed and unremarkable except in HPI and below Const: Denies: fever(s), chills, body aches, change in appetite, change in weight, malaise, night sweats, diaphoresis, change in sleep pattern, daytime sleepiness or snoring Eyes: Denies: change in vision, blurry vision, photophobia, eye discomfort or eye discharge ENMT: Denies: throat pain, enlarged tonsils, hoarseness, mouth pain, oral sores, dry mouth, tinnitus, nasal congestion or post nasal drip Card: Denies: chest pain, palpitations, irregular heart rhythm, edema, swelling of feet/ankles, lightheadedness, syncope, pre-syncope, dyspnea on exertion, orthopnea, leg pain with exertion or acrocyanosis Resp: Denies: dyspnea, productive cough, non-productive cough, wheezing, stridor, pain on inspiration, change in phlegm color, hemoptysis or chest congestion GI: Denies: abdominal pain, nausea, vomiting, hematemesis, coffee ground emesis, dysphagia, heartburn, diarrhea, constipation, bloating, GI cramping, change in bowel habits, pain on defecation, hematochezia or melena : Denies: flank pain, difficulty urinating, dysuria, urinary frequency, urinary urgency, urinary hesitancy, urinary dribbling, difficulty starting urination, change in urine stream, nocturia or hematuria Musc: Denies: neck pain, back pain, extremity pain, joint pain, joint swelling, joint redness, joint stiffness or limited range of motion Neuro: Denies: headache(s), numbness in extremities, weakness in extremities, sensory changes, lack of coordination, difficulty walking, frequent falls, dizziness, vertigo, confusion, Slurred speech present, difficulty communicating thoughts or seizure-like activity Psych: Denies: anxiety, depression, mood swings, panic attacks, hopelessness or irritability Endo: Denies: polyuria, polydipsia, tired all the time, cold intolerance, excessive sweating, flushing or heat intolerance Damaso/Lymph: Denies: easy bruising or easy bleeding All/Imm: Denies: tongue swelling, facial swelling or acute wheezing Medications/Allergies Home Medications Medication Instructions Recorded Confirmed Last Taken Type clopidogrel 75 mg tablet 75 mg PO DAILY 04/06/22 04/06/23 04/06/23 History glucosamine sulf dipot 1 cap PO BID 04/06/22 04/06/23 04/05/23 History chlr,msm,chond 550 mg-C 30 mg-rama 1 mg capsule latanoprost 0.005 % eye drops 1 drp ophthalmic (eye) QPM 05/10/22 04/06/23 04/05/23 History valsartan 80 mg tablet 80 mg PO DAILY #90 tabs 01/24/23 04/06/23 04/05/23 Rx metoprolol tartrate 25 mg tablet 25 mg PO BID #180 tabs 01/29/23 04/06/23 04/06/23 Rx omeprazole 40 mg capsule,delayed 1 cap PO DAILY 04/03/23 04/06/23 04/05/23 History release apixaban 5 mg (74 tabs) tablets in See Rx Instructions PO .COMPLEX 04/06/23 Unknown Rx a dose pack ([facility] DVT-PE Treat #74 ea 30D Start) atorvastatin 40 mg tablet 40 mg PO QPM 04/06/23 04/06/23 04/05/23 History Allergies Allergy/AdvReac Type Severity Reaction Status Date / Time Penicillins Allergy ADR-Itching Verified 04/06/23 10:29 lisinopril AdvReac Severe ADR-tongue Verified 04/06/23 10:29 swelling and shortness of breath PFSH Acute PFSH: Medical History Carotid stenosis History of CVA (cerebrovascular accident) Follows with Dr Osuna - 04/27/2016 Hypercholesterolemia Surgical History Hx of colonoscopy At least 5 years, Polyps were found S/P hernia surgery S/P knee surgery Family History Father CHF (congestive heart failure) Hypertension Diabetes Mother Stroke Hypertension Diabetes Social History Smoking and tobacco status: never smoked Vitals/I&O/Wt Last Vital Signs Temp 98.2 F 04/06/23 11:35 Pulse 62 04/06/23 11:54 Resp 15 04/06/23 11:54 BP 111/62 04/06/23 11:54 Pulse Ox 97 04/06/23 11:54 O2 Del Method Room Air 04/06/23 11:35 Weight last 48 hrs Weight 81.647 kg Physical Exam Narrative: General: No acute distress, AO x3, pleasant, jovial HEENT: PERRLA, pupils bilaterally equal and reactive Chest: Normal vesicular breath sounds, no added sounds, equal good air entry bilaterally CVS: S1-S2 regular, no murmurs, no tachycardia, no gallops, no rubs Abdomen: Soft, nontender, no organomegaly, bowel sounds present Neuro: No focal deficits, no facial deformity, AO x3, power 5/5 in all limbs Extremity: Right upper limb swollen, pulses palpable, capillary refill normal Data 04/06/23 16:10 04/06/23 16:10 A&P Assessment and plan (1) Arm swelling: (2) Subclavian vein thromboembolism, acute: (3) Acute internal jugular vein thrombosis: Plan Patient found to have right upper limb DVT leading to extremity swelling most likely instigation from IV line placement 1 week ago without any difficulty in breathing or chest pain or weakness in the arm. Patient is hemodynamically stable without tachycardia. Start patient on Eliquis 10 mg twice daily followed by 5 mg twice daily. Patient would need anticoagulation for at least 6 months. Given unprovoked DVT patient should get further work-up as an outpatient to rule out malignancy. Patient also with history of weight loss of 35 pounds recently along with change in the voice. Patient is already due for EGD and an outpatient with surgery. For now she will hold off for next 3 months with anticoagulation should be continued without any break in treatment for 3 months at least. Add PSA, CEA, CA125 tumor blood work. Patient should have CT chest abdomen pelvis with oral and IV contrast as an outpatient with primary care provider within the next 1 week. Danger signs of difficulty in breathing, swelling discussed in detail with patient and patient's caregiver at bedside. Elevation. Next patient is hemodynamically stable without any difficulty in breathing patient is safe to be discharged home on Eliquis as per DVT protocol. Should see the primary care provider within next 1 week. Should receive first dose of Eliquis 10 mg in the ER. Consult Attestations Medical Necessity Statement: Discharged from the ER on oral Eliquis Diagnoses Arm swelling M79.89 Subclavian vein thromboembolism, acute I82.B19 Acute internal jugular vein thrombosis I82.C19
[2023-04-06] MEDS: apixaban 5 mg Tablet 10 MG PO (18:07)
[2023-04-06 18:17] LABS: CA 125 12.9 U/mL (0-35)
[2023-04-07 00:46] LABS: Carcinoembryonic Antigen 2.1 ng/mL (0.0-4.7)
== END 2023-04-06 18:16 | disposition home or self-care (01) ==
PROVIDERS: Student in an Organized Health Care Education/Training Program; Emergency Provider Nurse Practitioner; PCP Family Medicine
DX: I82.C11 Acute embolism and thrombosis of right internal jugular vein (principal); I82.B11 Acute embolism and thrombosis of right subclavian vein; Z86.73 Personal history of transient ischemic attack (TIA), and cerebral infarction without residual deficits
CPT/HCPCS: 36415; 80053; 82378; 84153; 85025; 85610; 85730; 86304; 93005; 93971; 99285

== ENCOUNTER 2023-06-01 22:20 | Emergency (ER) | payer MEDICARE, OTHER, SELFPAY ==
[2023-06-01 22:24] VITALS: BP 93/56; PULSE 41; RESP 16; TEMP 36.4; O2SAT 97; BMI 26.6
[2023-06-02 00:28] VITALS: BP 95/58; PULSE 68; RESP 18; O2SAT 99
--- NOTE | 2023-06-02 00:35 | ECG_ITS ---
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 Measurements Intervals [place] Rate: 83 P: 72 [place]: 151 QRS: 64 QRSD: 93 T: 87 QT: 350 QTc: 413 Interpretive Statements SINUS RHYTHM WITH FREQUENT VENTRICULAR PREMATURE COMPLEXES NONSPECIFIC T-WAVE ABNORMALITY Compared to ECG 04/06/2023 11:57:11 T-wave abnormality now present Electronically Signed On 06-03-2023 22:56:18 CDT by Javon Watt M.D. [id number]
--- NOTE | 2023-06-02 00:36 | XRR_ITS ---
PROCEDURE INFORMATION: Exam: XR Chest Exam date and time: 06/02/2023 12:42 AM Age: 72 years old Clinical indication: Shortness of breath; Prior surgery; Surgery date: 6+ months; Surgery type: Esophageal stent. Chest port; Patient HX: C/O SOB. History of esophageal cancer. TECHNIQUE: Imaging protocol: Radiologic exam of the chest. Views: 1 view. COMPARISON: RF FL barium swallow [id number] 03/20/2023 8:28 AM FINDINGS: Tubes, catheters and devices: Left chest wall port a catheter with tip near the superior cavoatrial junction. Lungs: Lungs are clear. Pleural spaces: No pleural effusion. No pneumothorax. Heart/Mediastinum: Normal cardiomediastinal silhouette. Aortic calcifications. Placement of mid to distal esophageal stent. Bones/joints: No acute osseous abnormality. XR/XR chest 1V portable [id number] IMPRESSION: No acute findings. Placement of mid to distal esophageal stent.
[2023-06-02 00:41] LABS: Basophils % 0.3 %; Eosinophils # 0.1 10^3/uL (0.0-0.8); Eosinophils % 1.3 %; Hematocrit 33.6 % (37-53); Lymphocytes # 0.7 10^3/uL (0.8-4.8); Lymphocytes % 7.5 %; Mean Corpuscular HGB Conc 34.2 g/dL (30-55); Mean Corpuscular Hemoglobin 30.4 pg (27-33); Mean Corpuscular Volume 88.9 fl (82-101); Mean Platelet Volume 11.1 fL (7.4-10.4); Monocytes # 0.3 10^3/uL (0.2-0.9); Monocytes % 3.7 %; Neutrophils # 7.89 10^3/uL (1.8-7.7); Neutrophils % 86.7 %; Nucleated Red Blood Cells % 0 %; Platelet Count 373 10^3/cmm (157-399); Red Blood Count 3.78 10^6/uL (3.85-5.65); Red Cell Distribution Width 13.2 % (12.1-15.1); White Blood Count 9.11 10^3/uL (3.29-11.43)
[2023-06-02 01:08] LABS: D Dimer 0.59 ug/mLFEU (0-0.59)
[2023-06-02] MEDS: ipratropium-albuterol 3 mL Neb INHALATION (01:08)
[2023-06-02 01:09] VITALS: PULSE 66; RESP 16; O2SAT 98
[2023-06-02 01:14] VITALS: PULSE 70; RESP 16; O2SAT 99
[2023-06-02 01:15] LABS: Lactic Sepsis W/Reflex 1.2 mmol/L (0.5-2.2)
[2023-06-02] MEDS: dexamethasone 10 mg/mL INJ IVP (01:20)
[2023-06-02 01:25] LABS: Alanine Aminotransferase 34 U/L (0-41); Albumin Level 3.5 g/dL (3.5-5.2); Alkaline Phosphatase 259 U/L (40-130); Aspartate Amino Transferase 21 U/L (0-40); Blood Urea Nitrogen 27 mg/dL (8-23); Carbon Dioxide 26 mmol/L (22-29); Chloride 95 mmol/L (98-107); Globulin 2.2 g/dL (1.3-4.6); Glucose 90 mg/dL (65-115); NT Pro B Type Natriuretic Pept 38 pg/mL (0-125); Osmolality Calculated 277 mOsm/kg (285-295); Sodium 131 mmol/L (136-145); Total Bilirubin 0.7 mg/dL (0.15-1.2); Total Protein 5.7 g/dL (6.6-8.7)
[2023-06-02 01:26] LABS: Anion Gap 14.4 (5-19); Potassium 4.4 mmol/L (3.5-5.1)
[2023-06-02 03:28] VITALS: BP 98/59; PULSE 78; RESP 18; O2SAT 97
--- NOTE | 2023-06-02 17:40 | ED_ITS ---
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 He has had five sessions of radiation this week. He presents with shortness of breath. Minimal chest discomfort. Discomfort is pleuritic. No fever. He has had a cough, but no sputum production. No lower extremity swelling or increased pain. He does not normally use oxygen. Associated symptoms: Reports chest pain (minimal) and nausea; Deny abdominal pain, chest congestion, fever(s), palpitations or vomiting Review of Systems Const: Denies: fever(s) or chills ENMT: Reports: throat pain; Denies: swelling of lips/tongue Card: Reports: chest pain (minimal); Denies: palpitations Resp: Reports: dyspnea and non-productive cough; Denies: productive cough, wheezing or chest congestion GI: Reports: nausea; Denies: abdominal pain or vomiting PFSH ED PFSH: Medical History Carotid stenosis History of CVA (cerebrovascular accident) Follows with Dr Osuna - 04/27/2016 Hypercholesterolemia Surgical History Hx of colonoscopy At least 5 years, Polyps were found S/P hernia surgery S/P knee surgery Family History Father CHF (congestive heart failure) Hypertension Diabetes Mother Stroke Hypertension Diabetes Social History Smoking and tobacco status: never smoked Physical Exam Const: GENERAL APPEARANCE: cooperative, anxious, ill appearing (midlly) and frail appearing (mild) HENMT: COMMON NORMALS: normocephalic, atraumatic and Normal external nose present HEAD & SCALP: normocephalic and atraumatic FACE & SINUS: normal facial exam and face symmetric NOSE: Normal external nose present Eye: COMMON NORMALS: Equal, round and reactive pupils present and EOMs intact bilaterally PUPIL: Yes Equal, round and reactive pupils present Neck/C-Spine: GENERAL: Yes trachea midline Chest: CHEST: Yes Symmetrical chest wall rise Resp: COMMON NORMALS: normal respiratory effort, No retractions, No use of accessory muscles and clear to auscultation bilaterally AUSCULTATION: clear to auscultation bilaterally Cardio: COMMON NORMALS: regular rate and regular rhythm RATE: regular rate RHYTHM: regular rhythm GI: COMMON NORMALS: Normal to inspection, nondistended, normoactive bowel sounds present Extremity: COMMON NORMALS: no pedal edema Neuro: GUNNAR COMA SCALE: document GCS findings Gunnar coma scale eye opening: Spontaneous Gunnar coma scale verbal response: Orientated [place] coma scale motor response: Obey commands [place] coma scale total score: 15 SENSORY EXAM: Yes extremities (intact) Psych: COMMON NORMALS: speech normal SPEECH: Yes normal speech Skin: COMMON NORMALS: no rashes or lesions noted GENERAL SKIN EXAM: no rashes or lesions noted Course Vital Signs: Vital signs: Vital Signs Temperature 97.5 F L 06/01/23 22:24 Pulse Rate 78 06/02/23 03:28 Respiratory Rate 18 06/02/23 03:28 Blood Pressure 98/59 06/02/23 03:28 Pulse Oximetry 97 06/02/23 03:28 Oxygen Delivery Me thod Room Air 06/02/23 01:14 MDM - SOB/Dyspnea Medical Decision Making NO fever. No tachycardia. Chest X-ray is negative for any acute change. BUN is mildly elevated. Otherwise laboratory is not remarkable. BNP is only 38. D dimer is normal. Likely mild radiation pneumonitis. Symptoms are resolved after dexamethasone and nebulizer treatment. He wishes to go home. He will be discharged on albuterol and a tapering dose of steroid to return for any worsening symptoms. Lab Data 06/02/23 00:23 06/02/23 00:23 Labs/Radiology: Radiology Impressions Chest X-Ray 06/02/23 00:36 IMPRESSION: No acute findings. Placement of mid to distal esophageal stent. Laboratory Results WBC 9.11 10^3/uL (3.29-11.43) 06/02/23 00:23 RBC 3.78 10^6/uL (3.85-5.65) L 06/02/23 00:23 Hgb 11.50 g/dL (11.27-16.99) 06/02/23 00:23 Hct 33.6 % (37-53) L 06/02/23 00:23 MCV 88.9 fl (82-101) 06/02/23 00: MCH 30.4 pg (27-33) 06/02/23: MCHC 34.2 g/dL (30-55) 06/02/23 00: RDW 13.2 % (12.1-15.1) 06/02/23 00: Plt Count 373 10^3/cmm (157-399) 06/02/23: MPV 11.1 fL (7.4-10.4) H 06/02/23 00: Neut % (Auto) 86.7 % 06/02/23 00: Lymph % (Auto) 7.5 % 06/02/23 00: [place] % (Auto) 3.7 % 06/02/23: Eos % (Auto) 1.3 % 06/02/23 00: Baso % (Auto) 0.3 % 06/02/23 00: Neut # (Auto) 7.89 10^3/uL (1.8-7.7) H 06/02/23 00: Lymph # (Auto) 0.7 10^3/uL (0.8-4.8) L 06/02/23 00:23 [place] # (Auto) 0.3 10^3/uL (0.2-0.9) 06/02/23 00: Eos # (Auto) 0.1 10^3/uL (0.0-0.8) 06/02/23 00: Baso # (Auto) 0.0 10^3/uL (0.0-0.1) 06/02/23: Nucleated RBC % (auto) 0 % 06/02/23: Nucleated RBCs # 0.0 /100WBC 06/02/23 00: D-Dimer 0.59 ug/mLFEU (0-0.59) 06/02/23 00: Sodium 131 mmol/L (136-145) L 06/02/23 00:23 Potassium 4.4 mmol/L (3.5-5.1) 06/02/23 00: Chloride 95 mmol/L (98-107) L 06/02/23 00: Carbon Dioxide 26 mmol/L (22-29) 06/02/23 00:23 Anion Gap 14.4 (5-19) 06/02/23 00:23 BUN 27 mg/dL (8-23) H 06/02/23 00:23 Creatinine 0.6 mg/dL (0.7-1.2) L 06/02/23 00:23 GFR Calculation Not Reportable 06/02/23 00:23 Glucose 90 mg/dL (65-115) 06/02/23 00:23 Calculated Osmolality 277 mOsm/kg (285-295) L 06/02/23 00:23 Lactic Acid 1.2 mmol/L (0.5-2.2) 06/02/23 00:23 Calcium 9.0 mg/dL (8.5-10.5) 06/02/23 00:23 Total Bilirubin 0.7 mg/dL (0.15-1.2) 06/02/23 00:23 AST 21 U/L (0-40) 06/02/23 00:23 ALT 34 U/L (0-41) 06/02/23 00:23 Alkaline Phosphatase 259 U/L (40-130) H 06/02/23 00:23 NT-Pro-B Natriuret Pep 38 pg/mL (0-125) 06/02/23 00:23 Total Protein 5.7 g/dL (6.6-8.7) L 06/02/23 00:23 Albumin 3.5 g/dL (3.5-5.2) 06/02/23 00:23 Globulin 2.2 g/dL (1.3-4.6) 06/02/23 00:23 All radiology interpretation(s) finalized by discharge Discharge Plan Discharge Patient Disposition: Home Clinical Impression: Acute dyspnea, Pneumonitis Condition: Stable Prescriptions: New Medrol (Brijesh) 4 mg tablets,dose pack See Rx Instructions .ROUTE .COMPLEX Qty: 21 0RF Rx Instructions: orally per package directions albuterol sulfate 90 mcg/actuation HFA aerosol inhaler 2 inh INHALATION Q4H PRN (Reason: shortness of breath or wheezing) Qty: 6.7 1RF No Action omeprazole 40 mg capsule,delayed release(DR/EC) 1 cap PO DAILY clopidogrel 75 mg tablet 75 mg PO DAILY glucos sul [id number]-Mn 550-30-1 mg capsule 1 cap PO BID latanoprost 0.005 % drops 1 drp ophthalmic (eye) QPM metoprolol tartrate 25 mg tablet 25 mg PO BID Qty: 180 2RF Eliquis 5 mg tablet 5 mg PO BID Qty: 60 3RF valsartan 80 mg tablet 80 mg PO DAILY Qty: 90 3RF atorvastatin 40 mg tablet 40 mg PO QPM Discharge Orders: Discharge ED (Routine); Ordered 06/02/23 Ordered By: Denny Decker Referrals: Vineet Saucedo MD [Primary Care Provider] - 1-3 days Patient Instructions: Pneumonitis (ED) Activity Restrictions/Additional Instructions: Return for worsening shortness of breath despite treatment, chest discomfort, other concerning symptoms. Coding Level of Care Code ED Insurance Case Manager for Sandra Grove
== END 2023-06-02 03:27 | disposition home or self-care (01) ==
PROVIDERS: Emergency Provider Emergency Medicine; PCP Family Medicine
DX: J98.4 Other disorders of lung (principal); Z79.01 Long term (current) use of anticoagulants; Z79.02 Long term (current) use of antithrombotics/antiplatelets; Z86.73 Personal history of transient ischemic attack (TIA), and cerebral infarction without residual deficits
CPT/HCPCS: 36415; 71045; 80053; 83605; 83880; 85025; 85378; 87040; 93005; 94640; 96374; 99285; J1100

== ENCOUNTER 2023-06-07 18:49 | Inpatient (IN) | payer MEDICARE, OTHER, SELFPAY ==
--- NOTE | 2023-06-07 18:58 | ECG_ITS ---
[facility] Test Date: 2023-06-07 Pat Name: Davidson Watts Department: Room: Gender: Male Offset Platemaker: : 1950 Requested By: Britton Page Order Number: [id number] Chivo MD: Anson Alcocer M.D. Measurements Intervals [place] Rate: 97 P: 61 MO: 155 QRS: 27 QRSD: 89 T: 57 QT: 320 QTc: 407 Interpretive Statements SINUS RHYTHM WITH FREQUENT VENTRICULAR PREMATURE COMPLEXES ABNORMAL RHYTHM ECG Compared to ECG 06/01/2023 22:27:00 T-wave abnormality no longer present Electronically Signed On 06-07-2023 21:35:17 CDT by Anson Alcocer M.D. [email or web address]
[2023-06-07 18:59] VITALS: BP 113/67; PULSE 78; RESP 15; TEMP 36.5; O2SAT 98; BMI 26.2
--- NOTE | 2023-06-07 19:10 | XRR_ITS ---
PROCEDURE INFORMATION: Exam: XR Chest Exam date and time: 06/07/2023 9:44 PM Age: 72 years old Clinical indication: Other: Syncope TECHNIQUE: Imaging protocol: Radiologic exam of the chest. Views: 1 view. COMPARISON: CR (CHEST, ) 06/02/2023 12:42 AM FINDINGS: Tubes, catheters and devices: Left-sided Port-A-Cath redemonstrated and similar. Lungs: Subtle opacities in the right lung base. Pleural spaces: Unremarkable. No pleural effusion. No pneumothorax. Heart/Mediastinum: Esophageal stent redemonstrated and similar in position. Bones/joints: Unremarkable. XR/XR chest 1V portable [id number] IMPRESSION: 1. Subtle opacities in the right lung base. 2. Esophageal stent redemonstrated and similar in position.
--- NOTE | 2023-06-07 19:18 | ECG_ITS ---
[facility] Test Date: 2023-06-07 Pat Name: Davidson Watts Department: Room: Gender: Male Scientific Editor: : 1950 Requested By: Britton Page Order Number: [id number] Chivo MD: Anson Alcocer M.D. Measurements Intervals [place] Rate: 185 P: 0 MN: 0 QRS: 62 QRSD: 95 T: 0 QT: 190 QTc: 334 Interpretive Statements ATRIAL FIBRILLATION WITH RAPID VENTRICULAR RESPONSE WITH ABERRANT CONDUCTION OR VENTRICULAR PREMATURE COMPLEXES NONSPECIFIC ST & T-WAVE ABNORMALITY CRITICAL TEST RESULT Compared to ECG 06/07/2023 18:58:10 Aberrant conduction of supraventricular beat(s) now present T-wave abnormality now present Sinus rhythm no longer present Electronically Signed On 06-07-2023 21:35:22 CDT by Anson Alcocer M.D. [id number]
[2023-06-07] MEDS: dilTIAZem 5 mg/mL SDV 5 mL 20 MG IVP (19:31)
[2023-06-07] MEDS: sodium chloride 0.9% 500 ML 999 ML IV (19:31)
[2023-06-07 19:38] LABS: Basophils % 0.2 %; Eosinophils % 0.6 %; Lymphocytes # 0.1 10^3/uL (0.8-4.8); Lymphocytes % 2.2 %; Mean Corpuscular HGB Conc 34.3 g/dL (30-55); Mean Corpuscular Hemoglobin 30.9 pg (27-33); Mean Corpuscular Volume 90.1 fl (82-101); Mean Platelet Volume 10.6 fL (7.4-10.4); Monocytes # 0.4 10^3/uL (0.2-0.9); Monocytes % 7.3 %; Neutrophils # 4.75 10^3/uL (1.8-7.7); Neutrophils % 88.8 %; Nucleated Red Blood Cells % 0 %; Platelet Count 260 10^3/cmm (157-399); Red Blood Count 3.33 10^6/uL (3.85-5.65); White Blood Count 5.35 10^3/uL (3.29-11.43)
[2023-06-07 19:49] VITALS: BP 103/62; PULSE 112; RESP 20; O2SAT 95
[2023-06-07 19:55] LABS: INR 1.02 (0.8-1.2)
[2023-06-07 20:02] LABS: Alanine Aminotransferase 25 U/L (0-41); Albumin Level 3.3 g/dL (3.5-5.2); Alkaline Phosphatase 206 U/L (40-130); Anion Gap 13.8 (5-19); Aspartate Amino Transferase 13 U/L (0-40); Blood Urea Nitrogen 18 mg/dL (8-23); Calcium 8.4 mg/dL (8.5-10.5); Carbon Dioxide 26 mmol/L (22-29); Chloride 92 mmol/L (98-107); Globulin 2.1 g/dL (1.3-4.6); Glucose 185 mg/dL (65-115); Osmolality Calculated 273 mOsm/kg (285-295); Potassium 3.8 mmol/L (3.5-5.1); Sodium 128 mmol/L (136-145); Total Bilirubin 0.8 mg/dL (0.15-1.2); Total Protein 5.4 g/dL (6.6-8.7); Troponin(5th) Baseline 13 ng/L (0-15)
--- NOTE | 2023-06-07 20:03 | PC.NURSE ---
Verbal order taken from Dr Caro to put in order for sean chamberlain. Order put in.
[2023-06-07] MEDS: dilTIAZem 100 MG in sodium chloride 0.9% (add-van) 100 ML IV (20:09)
[2023-06-07 20:13] VITALS: BP 101/67; PULSE 119; RESP 23; O2SAT 94
--- NOTE | 2023-06-07 20:17 | PC.NURSE ---
Daughter at bedside asked nurse if patient was anticipated to be admitted. This nurse informed patient that there were no admission orders at this time. Daughter requested to be transferred to [place] if patient was anticipated to be admitted due to having his doctors in [place].
--- NOTE | 2023-06-07 20:35 | W.ED.SYNCOPE ---
HPI - Syncope General: Chief Complaint: Syncope Stated Complaint: A-Fib Convulsions Time Seen by Provider: 06/07/23 19:17 History of Present Illness: 72-year-old male with complex medical history including throat cancer, atrial fibrillation and hypertension presents emergency room via private car due to palpitation and presyncope episode. According to daughter patient had radiation therapy down today and upon getting home patient started feeling dizzy and lightheaded. Upon present emergency room patient was found to have heart rate of 185 and in atrial fibrillation. Denies any chest pain, shortness of breath, headache, blurred vision or change in vision right now. Associated symptoms: Deny abdominal pain, chest pain, fever(s), headache(s), lightheadedness or nausea Review of Systems General: Reports: 10 or more systems reviewed and unremarkable except in HPI and below Const: Denies: fever(s), chills, body aches or change in appetite Card: Reports: palpitations, irregular heart rhythm and pre-syncope; Denies: chest pain, edema, swelling of feet/ankles, lightheadedness, syncope, orthopnea, leg pain with exertion or acrocyanosis Resp: Denies: dyspnea, productive cough, non-productive cough, wheezing, stridor, pain on inspiration or change in phlegm color GI: Denies: abdominal pain, nausea, vomiting or hematemesis : Denies: flank pain, difficulty urinating or dysuria Musc: Denies: neck pain, back pain or extremity pain Neuro: Reports: dizziness, restless legs and other; Denies: headache(s), numbness in extremities, confusion, Slurred speech present, seizure-like activity or involuntary movements [facility] ED PFSH: Medical History Carotid stenosis History of CVA (cerebrovascular accident) Follows with Dr Osuna - 04/27/2016 Hypercholesterolemia Surgical History Hx of colonoscopy At least 5 years, Polyps were found S/P hernia surgery S/P knee surgery Family History Father CHF (congestive heart failure) Hypertension Diabetes Mother Stroke Hypertension Diabetes Social History Smoking and tobacco/nicotine status: never used tobacco/nicotine Physical Exam Const: COMMON NORMALS: no acute distress, average body habitus, patient oriented x3, no limitations, healthy appearing, alert and well nourished Lymph: LYMPHATIC: no lymphadenopathy noted Chest: COMMONS NORMALS: normal inspection of the chest, normal palpation of entire chest wall, normal inspection of the breasts and normal palpation of the breasts Breast/axilla inspection: Yes normal inspection of the breasts BREAST/AXILLA PALPATION: Yes normal palpation of the breasts Resp: COMMON NORMALS: normal respiratory effort, No retractions, No use of accessory muscles, clear to auscultation bilaterally and percussion normal AUSCULTATION: clear to auscultation bilaterally PERCUSSION: percussion normal Cardio: JUGULAR VENOUS DISTENTION: no JVD PALPATION: normal PMI RATE: tachycardic (180) RHYTHM: abnormal rhythm irregularly irregular GI: COMMON NORMALS: Normal to inspection, nondistended, normoactive bowel sounds present Extremity: COMMON NORMALS: normal to inspection, full ROM, capillary refill normal, no joint enlargement, no clubbing, cyanosis or edema, no calf tenderness and no pedal edema Neuro: COMMON NORMALS: patient oriented x3 SENSORIUM/ORIENTATION: Yes alert Skin: COMMON NORMALS: no rashes or lesions noted, no wounds, turgor normal, no jaundice, no petechiae and no mottling GENERAL SKIN EXAM: no rashes or lesions noted and turgor normal Course Vital Signs: Vital signs: Vital Signs Temperature 99.2 F 06/08/23 07:29 Pulse Rate 78 06/08/23 09:09 Respiratory Rate 16 06/08/23 09:09 Blood Pressure 101/54 06/08/23 07:29 Pulse Oximetry 97 06/08/23 09:09 Oxygen Delivery Me thod Room Air 06/08/23 09:09 MDM - Syncope Medical Decision Making Patient made comfortable emergency room and had extensive work-up including CBC, CMP, magnesium, and EKG. Patient was given IV Cardizem bolus and drip. I discussed current plan and treatment with patient and family. Discussed patient with the hospitalist. Patient will be admitted for further evaluation and treatment. Differential Diagnosis Likely syncope due to orthostatic hypotension, vasovagal syncope, complete atrioventricular block, subarachnoid hemorrhage, pulmonary embolism and dehydration Lab Data 06/08/23 04:05 06/08/23 04:05 Radiology Impressions Chest X-Ray 06/07/23 19:10 IMPRESSION: 1. Subtle opacities in the right lung base. 2. Esophageal stent redemonstrated and similar in position. Laboratory Results WBC 5.35 10^3/uL (3.29-11.43) 06/07/23 19: RBC 3.33 10^6/uL (3.85-5.65) L 06/07/23 19:24 Hgb 10.30 g/dL (11.27-16.99) L 06/07/23 19: Hct 30.0 % (37-53) L 06/07/23 19: MCV 90.1 fl (82-101) 06/07/23 19: MCH 30.9 pg (27-33) 06/07/23 19: MCHC 34.3 g/dL (30-55) 06/07/23 19: RDW 14.0 % (12.1-15.1) 06/07/23 19: Plt Count 260 10^3/cmm (157-399) 06/07/23 19: MPV 10.6 fL (7.4-10.4) H 06/07/23 19: Neut % (Auto) 88.8 % 06/07/23 19: Lymph % (Auto) 2.2 % 06/07/23 19: [place] % (Auto) 7.3 % 06/07/23: Eos % (Auto) 0.6 % 06/07/23: Baso % (Auto) 0.2 % 06/07/23 19: Neut # (Auto) 4.75 10^3/uL (1.8-7.7) 06/07/23 19: Lymph # (Auto) 0.1 10^3/uL (0.8-4.8) L 06/07/23 19: [place] # (Auto) 0.4 10^3/uL (0.2-0.9) 06/07/23 19: Eos # (Auto) 0.0 10^3/uL (0.0-0.8) 06/07/23 19: Baso # (Auto) 0.0 10^3/uL (0.0-0.1) 06/07/23 19:24 Nucleated RBC % (auto) 0 % 06/07/23 19:24 Nucleated RBCs # 0.0 /100WBC 06/07/23 19:24 PT 13.80 SECONDS (12.1-14.9) 06/07/23 19:24 INR 1.02 (0.8-1.2) 06/07/23 19:24 Sodium 128 mmol/L (136-145) L 06/07/23 19:24 Potassium 3.8 mmol/L (3.5-5.1) 06/07/23 19:24 Chloride 92 mmol/L (98-107) L 06/07/23 19:24 Carbon Dioxide 26 mmol/L (22-29) 06/07/23 19:24 Anion Gap 13.8 (5-19) 06/07/23 19:24 BUN 18 mg/dL (8-23) 06/07/23 19:24 Creatinine 0.6 mg/dL (0.7-1.2) L 06/07/23 19:24 GFR Calculation Not Reportable 06/07/23 19:24 Glucose 185 mg/dL (65-115) H 06/07/23 19:24 Calculated Osmolality 273 mOsm/kg (285-295) L 06/07/23 19:24 Calcium 8.4 mg/dL (8.5-10.5) L 06/07/23 19:24 Magnesium 2.0 mg/dL (1.7-2.3) 06/07/23 19:24 Total Bilirubin 0.8 mg/dL (0.15-1.2) 06/07/23 19:24 AST 13 U/L (0-40) 06/07/23 19:24 ALT 25 U/L (0-41) 06/07/23 19:24 Alkaline Phosphatase 206 U/L (40-130) H 06/07/23 19:24 Troponin T Baseline 13 ng/L (0-15) 06/07/23 19:24 Total Protein 5.4 g/dL (6.6-8.7) L 06/07/23 19:24 Albumin 3.3 g/dL (3.5-5.2) L 06/07/23 19:24 Globulin 2.1 g/dL (1.3-4.6) 06/07/23 19:24 XR interpretation done by ED provider, pending radiology final review EKG Data EKG 1: Interpretation: Sinus rhythm with rate of 97. [place] interval 155. QTc 320. Nonspecific ST changes noted. EKG 2: Interpretation: Rate of 185 atrial fibrillation RVR some nonspecific ST and T wave changes. QRS interval 85 QT 190 Critical Care Time Critical Care Time: Critical Care Time: Yes Total Critical Care Time: 45 Attestation: Time spent reviewing past medical records. Time spent discussing patient family and the hospitalist. Time spent to reevaluate and reassess patient on multiple occasion. Time spent to manage patient's chronic conditions. Discharge Plan Discharge Patient Disposition: Admitted As Inpatient Admit Provider: Ivania Mcknight Clinical Impression: Acute hyponatremia, Atrial fibrillation with rapid ventricular response Condition: Stable Discharge Diet: Advance as tolerated Discharge Activity: Increase activity as tolerated Coding Level of Care Code ED Bindery Supervisor for Sandra Grove
[2023-06-07 21:04] VITALS: BP 92/63; PULSE 75; RESP 24; O2SAT 98
[2023-06-07] MEDS: sodium chloride 0.9% 1,000 ML 999 ML IV (21:11)
--- NOTE | 2023-06-07 21:15 | PC.NURSE ---
Report called to [facility] in [facility]. All questions and concerns addressed at time of report.
--- NOTE | 2023-06-07 21:20 | ECG_ITS ---
[facility] Test Date: 2023-06-07 Pat Name: Davidson Watts Department: Room: 112 Gender: Male Time Cycle Operator: : 1950 Requested By: Luna Han Order Number: [id number] Reading MD: Shahnaz Alexandra M.D. Measurements Intervals [place] Rate: 75 P: 60 CO: 165 QRS: 60 QRSD: 92 T: 54 QT: 330 QTc: 370 Interpretive Statements SINUS RHYTHM WITH FREQUENT VENTRICULAR PREMATURE COMPLEXES SEPTAL MYOCARDIAL INFARCTION , PROBABLY OLD [40+ ms Q WAVE IN V1/V2] Compared to ECG 06/07/2023 19:18:21 Myocardial infarct finding now present Atrial fibrillation no longer present Aberrant conduction of supraventricular beat(s) no longer present T-wave abnormality no longer present Electronically Signed On 06-08-2023 11:04:44 CDT by Shahnaz Alexandra M.D. [id number]
[2023-06-07 21:36] VITALS: BP 95/49; PULSE 70; RESP 18; TEMP 36.9; O2SAT 96
[2023-06-07 22:00] VITALS: PULSE 76
[2023-06-07 22:05] LABS: Troponin 5 2HR 12.69 ng/L (0-15); Troponin 5 2HR Delta -0.31 ABS# (0-10)
--- NOTE | 2023-06-07 23:03 | PM.HP ---
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 As per the daughter they were having lunch in the afternoon when he started complaining of dizziness and fell. There is no history of fever cold shortness of breath chest pain urinary or bowel complaints. But he reports having increase mucus since starting of the radiation treatment In ER he was found to have atrial fibrillation with rapid ventricular rate and started on Cardizem drip Review of Systems Narrative: As per HPI Medications/Allergies Home Medications Medication Instructions Recorded Confirmed Last Taken Type clopidogrel 75 mg tablet 75 mg PO DAILY 04/06/22 06/07/23 04/06/23 History glucosamine sulf dipot 1 cap PO BID 04/06/22 04/06/23 04/05/23 History chlr,msm,chond 550 mg-C 30 mg-rama 1 mg capsule latanoprost 0.005 % eye drops 1 drp ophthalmic (eye) QPM 05/10/22 06/07/23 04/05/23 History metoprolol tartrate 25 mg tablet 25 mg PO BID #180 tabs 01/29/23 06/07/23 04/06/23 Rx omeprazole 40 mg capsule,delayed 1 cap PO DAILY 04/03/23 06/07/23 04/05/23 History release atorvastatin 40 mg tablet 40 mg PO QPM 04/06/23 06/07/23 04/05/23 History apixaban 5 mg tablet (Eliquis) 5 mg PO BID #60 tabs 05/02/23 06/07/23 Unknown Rx valsartan 80 mg tablet 80 mg PO DAILY #90 tabs 05/14/23 06/07/23 Unknown Rx albuterol sulfate 90 mcg/actuation 2 inh inhalation Q4H PRN shortness 06/02/23 06/07/23 Unknown Rx aerosol inhaler of breath or wheezing #6.7 grams methylprednisolone 4 mg tablets in See Rx Instructions PO .COMPLEX 06/02/23 06/07/23 Unknown Rx a dose pack (Medrol (Brijesh)) #21 ea hydrocodone 5 mg-acetaminophen 325 1 tab PO TID PRN Pain 06/07/23 06/07/23 Unknown History mg tablet Allergies Allergy/AdvReac Type Severity Reaction Status Date / Time Penicillins Allergy ADR-Itching Verified 05/14/23 08:39 lisinopril AdvReac Severe ADR-tongue Verified 05/14/23 08:39 swelling and shortness of breath PFSH Acute PFSH: Medical History Carotid stenosis History of CVA (cerebrovascular accident) Follows with Dr Osuna - 04/27/2016 Hypercholesterolemia Surgical History Hx of colonoscopy At least 5 years, Polyps were found S/P hernia surgery S/P knee surgery Family History Father CHF (congestive heart failure) Hypertension Diabetes Mother Stroke Hypertension Diabetes Social History Smoking and tobacco/nicotine status: never used tobacco/nicotine Vitals/I&O/Wt Last Vital Signs Temp 98.5 F 06/07/23 21:36 Pulse 70 06/07/23 21:36 Resp 18 06/07/23 21:36 BP 95/49 06/07/23 21:36 Pulse Ox 96 06/07/23 21:36 O2 Del Method Room Air 06/07/23 21:36 06/07/23 06/07/23 06/08/23 14:59 22:59 06:59 Intake Total 518.042 / 518.042 Balance 518.042 / 518.042 Weight last 48 hrs Weight 75.75 kg Physical Exam Narrative: He is alert awake oriented x3 not in acute distress Chest bilateral minimal coarse rhonchi present Cardiovascular normal heart sounds no murmurs Abdomen NAD Extremities no edema noted bilaterally Data 06/08/23 04:05 06/08/23 04:05 CXR: Radiologist's impression: IMPRESSION: 1. ? Subtle opacities in the right lung base. 2. ? Esophageal stent redemonstrated and similar in position. ? 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 Ventricular rate 73 currently will discontinue Cardizem drip and monitor for now. Had 2 episodes of asymptomatic SVT overnight, started on po cardizem 60mg tid recheck 2D echo possible cardiology consult in am Resume home medications IV Pepcid 20 mg every 12 hours for stress ulcer prophylaxis Patient is on Eliquis for subclavian thrombosis, no need for further DVT prophylaxis For productive cough related to radiation treatment, will give DuoNebs every 12 hours P.o. Mucinex 600 mg twice daily. He is full code for now. Discussed with daughter about advanced directives. Attestations Medical Necessity Statement*: He might not need 2 days of hospitalization because of primary problem of atrial fibrillation with rapid ventricular rate has partially resolved for now, we will continue to monitor for 24 hours. Time Spent in Patient Care: 30 minutes Coding Level of Care Code Acute Code for Chg Fwd Diagnoses Atrial fibrillation with rapid ventricular response I48.91 Time Spent (min) 30
[2023-06-07 23:24] LABS: Add Urine Microscopic? NO; Charge for UA Resulting for Rev
[2023-06-07 23:25] LABS: Bilirubin Urine Neg (Negative); Blood Urine Neg (Negative); Glucose Urine UA Norm (Normal); Ketones Urine Negative (Negative); Leukocyte Esterase Urine Negative (Negative); Nitrate Urine Negative (Negative); Protein Urine Neg (Negative); Specific Gravity, Urine 1.025 (1.005-1.030); Urine Appearance Clear (CLEAR); Urine Color Yellow (Yellow); Urobilinogen Urine Neg (Negative); pH Urine 5 (5-7)
[2023-06-07] MEDS: famotidine 20 mg/2 mL INJ IVP (23:52)
[2023-06-08] VITALS (11 sets, daily range): BP systolic 101–114; BP diastolic 51–60; PULSE 69–98; RESP 15–24; TEMP 37–37.7; O2SAT 93–97
--- NOTE | 2023-06-08 01:10 | ECG_ITS ---
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 Measurements Intervals [place] Rate: 88 P: 56 ME: 159 QRS: 66 QRSD: 88 T: 75 QT: 314 QTc: 382 Interpretive Statements SINUS RHYTHM WITH OCCASIONAL VENTRICULAR PREMATURE COMPLEXES WITH OCCASIONAL SUPRAVENTRICULAR PREMATURE COMPLEXES POSSIBLE RIGHT VENTRICULAR CONDUCTION DELAY [RSR (QR) IN V1/V2] SEPTAL MYOCARDIAL INFARCTION , OF INDETERMINATE AGE [40+ ms Q WAVE IN V1/V2] Compared to ECG 06/07/2023 22:39:44 No significant changes Electronically Signed On 06-08-2023 11:04:35 CDT by Shahnaz Alexandra M.D. [id number]
[2023-06-08 01:43] LABS: Troponin 5 6HR 14.06 ng/L (0-15); Troponin 5 6HR Delta 1.06 ng/L (0-12)
[2023-06-08] MEDS: metoprolol tartrate 25 mg Tablet PO ×2 (03:11→09:20)
[2023-06-08] MEDS: dilTIAZem 60 mg Tablet PO (04:13)
[2023-06-08 04:57] LABS: Basophils % 0.5 %; Eosinophils % 0.2 %; Hematocrit 26.7 % (37-53); Lymphocytes # 0.1 10^3/uL (0.8-4.8); Lymphocytes % 2.7 %; Mean Corpuscular HGB Conc 34.1 g/dL (30-55); Mean Corpuscular Volume 90.8 fl (82-101); Mean Platelet Volume 11.6 fL (7.4-10.4); Monocytes # 0.4 10^3/uL (0.2-0.9); Neutrophils # 3.47 10^3/uL (1.8-7.7); Neutrophils % 86.6 %; Nucleated Red Blood Cells % 0 %; Platelet Count 231 10^3/cmm (157-399); Red Blood Count 2.94 10^6/uL (3.85-5.65); White Blood Count 4.01 10^3/uL (3.29-11.43)
[2023-06-08 05:22] LABS: Alanine Aminotransferase 23 U/L (0-41); Albumin Level 2.7 g/dL (3.5-5.2); Alkaline Phosphatase 190 U/L (40-130); Aspartate Amino Transferase 14 U/L (0-40); Blood Urea Nitrogen 13 mg/dL (8-23); Calcium 8.3 mg/dL (8.5-10.5); Carbon Dioxide 24 mmol/L (22-29); Chloride 95 mmol/L (98-107); Globulin 2.7 g/dL (1.3-4.6); Glucose 112 mg/dL (65-115); Magnesium 1.8 mg/dL (1.7-2.3); Osmolality Calculated 267 mOsm/kg (285-295); Sodium 128 mmol/L (136-145); Total Bilirubin 0.8 mg/dL (0.15-1.2); Total Protein 5.4 g/dL (6.6-8.7)
[2023-06-08 05:23] LABS: Anion Gap 13.2 (5-19); Potassium 4.2 mmol/L (3.5-5.1)
--- NOTE | 2023-06-08 06:21 | PC.NURSE ---
notified Dr Mcknight of SVT episodes, pt started on PO cardizem
--- NOTE | 2023-06-08 09:00 | PM.DCS ---
Discharge Providers Date of Admission: 06/07/23 20:40 Date of Discharge: June 08, 2023 Attending Provider at Admission: Ivania Mcknight MD Attending Provider at Discharge: Wesley Chavez MD Primary Care Provider: Vineet Saucedo MD Diagnoses at Discharge Discharge Diagnosis (1) Atrial fibrillation with rapid ventricular response: Status: Acute Reason for Visit Reason for Visit: A-Fib Convulsions Hospital Course Hospital Course 72-year-old male with history of esophageal cancer status post stent, who went to [place] to get evaluation done for his recent mets to spine he is also scheduled to get MRI which she has rescheduled because he experienced 1 syncopal event as per the he has been experiencing lightheadedness and dizziness but this syncope scared them, patient was n.p.o. because he was planning to go to [place] for the test, he has not noticed any chest pain, he was diagnosed with atrial flutter/A-fib which improved with Cardizem IV Cardizem drip turned off at the time of evaluation patient was in sinus rhythm heart rate in 70s with normal blood pressure, I have counseled patient not to take his valsartan because now at the time of discharge she will get higher dose of metoprolol he should watch his blood pressure closely he may resume his Eliquis 5 mg twice daily, chest x-ray does sright lower lobe infiltrate, he is afebrile, no leukocytosis, not requiring oxygen I will hold off on adding antibiotics. 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 Subtle opacities in the right lung base. 2. Esophageal stent redemonstrated and similar in position. Laboratory Results WBC 4.01 10^3/uL (3.29-11.43) 06/08/23 04:05 RBC 2.94 10^6/uL (3.85-5.65) L 06/08/23 04:05 Hgb 9.10 g/dL (11.27-16.99) L 06/08/23 04:05 Hct 26.7 % (37-53) L 06/08/23 04:05 MCV 90.8 fl (82-101) 06/08/23 04:05 MCH 31.0 pg (27-33) 06/08/23 04:05 MCHC 34.1 g/dL (30-55) 06/08/23 04:05 RDW 14.0 % (12.1-15.1) 06/08/23 04:05 Plt Count 231 10^3/cmm (157-399) 06/08/23 04:05 MPV 11.6 fL (7.4-10.4) H 06/08/23 04:05 Neut % (Auto) 86.6 % 06/08/23 04:05 Lymph % (Auto) 2.7 % 06/08/23 04:05 Bennett % (Auto) 9.0 % 06/08/23 04:05 Eos % (Auto) 0.2 % 06/08/23 04:05 Baso % (Auto) 0.5 % 06/08/23 04:05 Neut # (Auto) 3.47 10^3/uL (1.8-7.7) 06/08/23 04:05 Lymph # (Auto) 0.1 10^3/uL (0.8-4.8) L 06/08/23 04:05 Bennett # (Auto) 0.4 10^3/uL (0.2-0.9) 06/08/23 04:05 Eos # (Auto) 0.0 10^3/uL (0.0-0.8) 06/08/23 04:05 Baso # (Auto) 0.0 10^3/uL (0.0-0.1) 06/08/23 04:05 Nucleated RBC % (auto) 0 % 06/08/23 04:05 Nucleated RBCs # 0.0 /100WBC 06/08/23 04:05 PT 13.80 SECONDS (12.1-14.9) 06/07/23 19:24 INR 1.02 (0.8-1.2) 06/07/23 19:24 Sodium 128 mmol/L (136-145) L 06/08/23 04:05 Potassium 4.2 mmol/L (3.5-5.1) 06/08/23 04:05 Chloride 95 mmol/L (98-107) L 06/08/23 04:05 Carbon Dioxide 24 mmol/L (22-29) 06/08/23 04:05 Anion Gap 13.2 (5-19) 06/08/23 04:05 BUN 13 mg/dL (8-23) 06/08/23 04:05 Creatinine 0.5 mg/dL (0.7-1.2) L 06/08/23 04:05 GFR Calculation Not Reportable 06/08/23 04:05 Glucose 112 mg/dL (65-115) 06/08/23 04:05 Calculated Osmolality 267 mOsm/kg (285-295) L 06/08/23 04:05 Calcium 8.3 mg/dL (8.5-10.5) L 06/08/23 04:05 Magnesium 1.8 mg/dL (1.7-2.3) 06/08/23 04:05 Total Bilirubin 0.8 mg/dL (0.15-1.2) 06/08/23 04:05 AST 14 U/L (0-40) 06/08/23 04:05 ALT 23 U/L (0-41) 06/08/23 04:05 Alkaline Phosphatase 190 U/L (40-130) H 06/08/23 04:05 Troponin T Baseline 13 ng/L (0-15) 06/07/23 19:24 Troponin T 120 Minute 12.69 ng/L (0-15) 06/07/23 21:35 Delta Troponin T -0.31 ABS# (0-10) L 06/07/23 21:35 Troponin T Hi Sens 6Hr 14.06 ng/L (0-15) 06/08/23 01:13 Troponin T Hi Sens 6Hr Delta 1.06 ng/L (0-12) 06/08/23 01:13 Total Protein 5.4 g/dL (6.6-8.7) L 06/08/23 04:05 Albumin 2.7 g/dL (3.5-5.2) L 06/08/23 04:05 Globulin 2.7 g/dL (1.3-4.6) 06/08/23 04:05 Urine Color Yellow (Yellow) 06/07/23 23:10 Urine Appearance Clear (CLEAR) 06/07/23 23:10 Urine pH 5 (5-7) 06/07/23 23:10 Ur Specific [place] 1.025 (1.005-1.030) 06/07/23 23:10 Urine Protein Neg (Negative) 06/07/23 23:10 Urine Glucose (UA) Norm (Normal) 06/07/23 23:10 Urine Ketones Negative (Negative) 06/07/23 23:10 Urine Blood Neg (Negative) 06/07/23 23:10 Urine Nitrate Negative (Negative) 06/07/23 23:10 Urine Bilirubin Neg (Negative) 06/07/23 23:10 Urine Urobilinogen Neg mg/dL (Negative) 06/07/23 23:10 Ur Leukocyte Esterase Negative (Negative) 06/07/23 23:10 Vitals Last Vital Signs Temp 99.2 F 06/08/23 07:29 Pulse 69 06/08/23 07:29 Resp 15 06/08/23 07:29 BP 101/54 06/08/23 07:29 Pulse Ox 93 06/08/23 07:29 O2 Del Method Room Air 06/08/23 07:29 Discharge Plan Discharge Patient Disposition: Home Condition: Stable Prescriptions: New metoprolol tartrate 25 mg Tablet 50 mg PO BID Qty: 60 2RF Continued omeprazole 40 mg capsule,delayed release(DR/EC) 1 cap PO QAM clopidogrel 75 mg tablet 75 mg PO QPM glucos sul [id number]-Mn 550-30-1 mg capsule 1 cap PO BID latanoprost 0.005 % drops 1 drp ophthalmic (eye) QPM Eliquis 5 mg tablet 5 mg PO BID Qty: 60 3RF hydrocodone-acetaminophen 5-325 mg tablet 1 tab PO TID PRN (Reason: Pain) prochlorperazine maleate 10 mg tablet See Rx Instructions .ROUTE .COMPLEX Rx Instructions: TAKE 1 TABLET BY MOUTH EVERY 6 TO 8 HOURS NEEDED FOR BREAKTHROUGH NAUSEA ondansetron 8 mg tablet,disintegrating See Rx Instructions .ROUTE .COMPLEX Rx Instructions: DISSOLVE 1 TABLET ON TONGUE THREE TIMES DAILY FOR 2 DAYS FOLLOWING CHEMOTHERAPY , START TAKING THE NIGHT OF TREATMENT, THEN MAY TAKE 1 TABLET EVERY 8 HOURS NEEDED FOR NAUSEA lidocaine-prilocaine 2.5-2.5 % cream See Rx Instructions .ROUTE .COMPLEX Rx Instructions: Apply to port site 45 minutes to 1 hour prior to port access docusate sodium 100 mg capsule 100 mg PO BID atorvastatin 40 mg tablet 40 mg PO QPM methylprednisolone [Medrol (Brijesh)] 4 mg tablets,dose pack See Rx Instructions .ROUTE .COMPLEX Qty: 21 0RF Rx Instructions: orally per package directions albuterol sulfate 90 mcg/actuation HFA aerosol inhaler 2 inh INHALATION Q4H PRN (Reason: shortness of breath or wheezing) Qty: 6.7 1RF Held valsartan 80 mg tablet 80 mg PO DAILY Qty: 90 3RF Hold Instructions: Resume on 06/11/23. Discontinued metoprolol tartrate 25 mg tablet 25 mg PO BID Qty: 180 2RF Referrals: Vineet Saucedo MD [Primary Care Provider] - 3 weeks Discharge Diet: Advance as tolerated Discharge Activity: Increase activity as tolerated Patient Instructions: Opioid Safety Coding Level of Care Code Acute Code for Chg Fwd Diagnoses Atrial fibrillation with rapid ventricular response I48.91
[2023-06-08] MEDS: guaiFENesin 600 mg Tablet PO ×2 (09:06→18:34)
[2023-06-08] MEDS: clopidogrel 75 mg Tablet PO (09:06)
[2023-06-08] MEDS: apixaban 5 mg Tablet PO ×2 (09:07→18:34)
[2023-06-08] MEDS: sodium chloride 0.9% 1,000 ML 90 ML IV (09:09)
--- NOTE | 2023-06-08 09:10 | USCV_ITS ---
Davidson Watts Age: 72 Gender: M : 1950 Exam Date: 06/08/2023 09:32 Ordering Phys: Wesley Chavez MD Technologist: NAVI Exam Location: [facility] [place] Indication: afib BP: 101 / 54 HR: 62 Rhythm: Sinus Technical Quality: Adequate MEASUREMENTS (Male / Female) Normal Values 2D ECHO LV Chamber Size 5.0 cm RV Chamber Size 4.2 cm LVOT Diameter 2.2 cm LV Ejection Fraction MOD 2C 43.1 % LV Ejection Fraction 2C AL 44.1 % LA Diameter 4.9 cm LA Width 4.8 cm LA Height 6.5 cm RA Width 5.3 cm RA Height 5.5 cm Aorta at Sinotubular Diameter 2.9 cm IVC Diameter 1.4 cm M-MODE Aortic Annulus Diameter 3.2 cm LA Ao Ratio MM 1.6 MV E Point Septal Separation 0.7 cm DOPPLER AV Peak Velocity 163.0 cm/s LVOT Peak Velocity 129.0 cm/s AV Area Cont Eq vti 3.6 cm squared AV Area Cont Eq pk 3.1 cm squared MV Area PHT 5.0 cm squared Mitral E to A Ratio 1.5 MV E' Velocity 56.0 cm/s Mitral E to MV E' Ratio 7.3 Mitral E to LV E' Lateral Ratio 6.3 Mitral E to LV E' Septal Ratio 8.7 TR Peak Velocity 337.3 cm/s TR Peak Gradient 45.5 mmHg TV Peak E Velocity 109.0 cm/s Right Atrial Pressure 3.0 mmHg Pulmonary Artery Systolic Pressu 48.5 mmHg PV Peak Velocity 140.0 cm/s FINDINGS Left Ventricle Normal left ventricular size and systolic function, EF 55 %. No regional wall motion abnormalities. Right Ventricle The right ventricle is normal in size and function. Right Atrium Mild right atrial enlargement. Left Atrium Mild to moderate left atrial enlargement Mitral Valve Mild-moderate mitral valve regurgitation. Aortic Valve Thickened aortic valve. Tricuspid Valve Fdip-sl-klxsmndb tricuspid valve regurgitation. Pulmonic Valve Pulmonic valve not well visualized. Pericardium No pericardial effusion. Aorta Normal aortic annulus size. IVC Normal inferior vena cava. CONCLUSIONS Normal left ventricular size and systolic function, EF 55 %. No regional wall motion abnormalities. Mild right atrial enlargement. Mild to moderate left atrial enlargement. Mild-moderate mitral valve regurgitation. Thickened aortic valve. Agzy-ka-zzwntccm tricuspid valve regurgitation. Mild pulmonary hypertension with an estimated pulmonary artery peak systolic pressure of 49 mm of Hg. There is no pericardial effusion. There are no intracardiac masses. Compared to the study from 07/17/2022, the PA pressure appears to have increased and there is development of biatrial enlargement. Dr Anson Alcocer MD [facility] (Electronically Signed) Final Date: 08 June 2023 15:05 S
--- NOTE | 2023-06-08 09:18 | PC.CHAP ---
Pastoral Care Encounter/Spiritual Assessment Type of Contact [] Declined keno terminal operator visit [] Patient/Family/Request visit [] Outpatient visit [] Follow-up visit [] Physician referral [] Code/Alert [x] Routine visit [] Staff referral [] Actively dying [] Patient sleeping [x] Family support [] [] Out of room [] Palliative care [] [] Receiving care in room [] Pre-surgical visit [] Trauma [] Long length of stay [] ICU visit [] Other: Relational/Emotional Strength [x] Patient feels connected with others/family/visitors/staff [] Distress [] Loneliness/isolation [] Abandonment Spirituality of Patient [x] Person of Natalya [] Attends [facility]itan of their Natalya [x] Believes in Prayer [] Reads Bible or Rastafarian materials [] There are Spiritual issues to be addressed Teletype Mechanic Interventions [x] Prayer [x] Active listening [] Non-anxious presence [x] Spiritual/emotional support [] Crisis/trauma care [] Spiritual counseling [] Bereavement support [] Provided bereavement packet [] Provided Bible/devotional materials [] Provided toy/stuffed animal, coloring book to patient or family member [] Provided Communion [] Anointing/Garrett [] Salvation [x] Completed spiritual assessment [] Other: Impact on Illness or Injury [] Angry [] Fearful [] Anxious [] Often cries [] Exhaustion [] Unable to work [] Unable to attend quaker [] Unable to walk/stand [] Unable to read [] Unable to drive [] Unable to eat/drink [] Unable to sleep [] Unable to be with family [] Patient intubated [] Other: Summary Time spent with patient 5 min
[2023-06-08] MEDS: sodium chloride 1 gm Tablet PO ×2 (09:19→18:34)
--- NOTE | 2023-06-08 09:37 | PC.NURSE ---
physician rounding doctor talk to pt and at bedside. Informed pt and he is going to do an echocardiogram and increase dose of his metoprolol, stopped the cardizem and hold the losartan today, start on 90cc/hr fluids until 3-4 pm and check sodium verbal orders at bedside. verified and followed up to dr mckeon thru voalte messaging if he is going to adjust the dose of metoprolol today, he replied via voalte messaging that he will increase dose upon discharge. follow up to him as well about echocardiogram order. written orders now are acknowledge.
[2023-06-08 09:53] LABS: Thyroid Stimulating Hormone 0.44 uIU/mL (0.27-4.20); Uric Acid 2.3 mg/dL (3.4-7.0)
--- NOTE | 2023-06-08 10:09 | USCV_ITS ---
Davidson Watts Age: 72 Gender: M : 1950 Exam Date: 06/08/2023 11:58 Ordering Phys: Wesley Chavez MD Technologist: CT Exam Location: [facility] [place] Indication: Risk Factors: Previous Vascular Surgery: Right Brachial BP: / Left Brachial BP: / Right Left Velocity (cm/s) Spectral Plaque Velocity (cm/s) Spectral Plaque Syst/Diast Broadening Syst/Diast Broadening 122.40/19.80 Prox CCA 101.40/ 11.00 101.40/19.80 Mid CCA 61.50 / 10.30 107.30/19.20 Distal CCA 61.50 / 7.70 102.00/21.80 Prox ICA / 96.90/ 22.80 Mid ICA / 95.90/ 16.40 Distal ICA / 198.20 ECA 101.40 0.83 ICA/CCA Antegrade Vertebral Antegrade 67.00/ 18.40 cm/s 82.00/ 26.30 cm/s Tri Subclavian Tri 168.2 164.2 0 0 FINDINGS Comparison:. 07/17/22 Minimal elevation of right ICA velocities. Known occluded left ICA. Antegrade vertebral arteries. CONCLUSIONS Right ICA stenosis < 50%. Complete occlusion left ICA. Dr. Robyn Lomax DO (Electronically Signed) Final Date: 08 June 2023 16:25 S
[2023-06-08 10:41] LABS: NT Pro B Type Natriuretic Pept 412 pg/mL (0-125)
--- NOTE | 2023-06-08 11:03 | PC.SOCIAL ---
IMM Update pg 2 of IMM updated and reviewed w/ patients . Copy provided and copy dated, initialed and placed in chart.
[2023-06-08 13:50] LABS: Urine Random Sodium 99 mmol/L
[2023-06-08] MEDS: famotidine 20 mg/2 mL INJ IVP (13:53)
--- NOTE | 2023-06-08 14:10 | PM.CONSULT ---
Providers/Reason For Consult Consulting Physician/Specialty*: NOEMI Alcocer MD/cardiology Reason for Consult*: Patient with atrial fibrillation rapid ventricular rate Requesting Physician: Dr. Chavez Attending Physician: Wesley Chavez MD Primary Care Provider: Vineet Saucedo MD History of Present Illness History of Present Illness Davidson Watts is a 72 year old male with a history of hypertension, diabetes, dyslipidemia, SVT, nonsustained ventricular tachycardia, is presenting with complaints of dizziness/near syncope, off and on for the last 5 months or so. He had a prolonged episode of dizziness yesterday evening lasting for several hours. He was brought to the emergency room and was found to be in a narrow complex tachycardia with a heart rate in the 200 range. He is admitted to the hospital for further evaluation and management. This patient is recently diagnosed with oral cancer and is on chemo and radiation. Yesterday he had a radiation treatment and was returning home. He started having some shortness of breath and dizziness. The dizzy spells started getting worse. He also had some palpitations. For these complaints, he was brought to the emergency room. Patient was found to be hyponatremic. His EKG showed atrial fibrillation with rapid ventricular rate of 185 bpm. Occasional PVCs. He was started on IV Cardizem. He spontaneously converted to sinus rhythm. He was given a dose of Cardizem 60 mg p.o. since then. Early this morning around 3:00, he had a short episode of atrial fibrillation with rapid ventricular rate. Since the hospital admission, the patient has no recurrence of dizziness or near syncope. 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 In March of this year, he was diagnosed with DVT of the right upper extremity. He was placed on Eliquis. Denies any chest pain or chest tightness. He had 2 Myocardial perfusion imagings in the past, the most recent one was in August of this year. These were unremarkable, low probability for coronary ischemia. Patient has a remote history of smoking abuse. He has been chewing tobacco up until 15 years ago. His brother had a myocardial infarction in his 50s. Father had myocardial infarction? In his 70s. No other relevant family history Denies any fever, chills or cough. No other specific complaints. Review of Systems Narrative: CONSTITUTIONAL: No fever or chills. EYES: No blurring of vision or other visual disturbances lately. ENT: Has some difficulty in swallowing and speech-because of the oropharyngeal cancer? CARDIOVASCULAR: As mentioned above. RESPIRATORY: No significant cough. GASTROINTESTINAL: No hematemesis or melena. GENITOURINARY: No dysuria or hematuria. INTEGUMENTARY: No skin rashes or history of skin cancer. NEURO: History of CVA, currently has no residual defect PSYCHIATRIC: No history of psychosis or major depression. HEMATOLOGIC: DVT, on long-term oral anticoagulation ENDOCRINE: No history of polyuria or polydipsia. MUSCULOSKELETAL: No recent joint pain or swelling. ALLERGY/IMMUNOLOGY: As mentioned above. Medications/Allergies Home Medications Medication Instructions Recorded Confirmed Last Taken Type clopidogrel 75 mg tablet 75 mg PO QPM 04/06/22 06/08/23 06/04/23 History glucosamine sulf dipot 1 cap PO BID 04/06/22 06/08/23 06/06/23 History chlr,msm,chond 550 mg-C 30 mg-rama 1 mg capsule latanoprost 0.005 % eye drops 1 drp ophthalmic (eye) QPM 05/10/22 06/08/23 06/06/23 History metoprolol tartrate 25 mg tablet 25 mg PO BID #180 tabs 01/29/23 06/08/23 06/06/23 Rx omeprazole 40 mg capsule,delayed 1 cap PO QAM 04/03/23 06/08/23 06/06/23 History release atorvastatin 40 mg tablet 40 mg PO QPM 04/06/23 06/08/23 06/06/23 History apixaban 5 mg tablet (Eliquis) 5 mg PO BID #60 tabs 05/02/23 06/08/23 06/04/23 Rx valsartan 80 mg tablet 80 mg PO DAILY #90 tabs 05/14/23 06/08/23 06/06/23 Rx albuterol sulfate 90 mcg/actuation 2 inh inhalation Q4H PRN shortness 06/02/23 06/08/23 Unknown Rx aerosol inhaler of breath or wheezing #6.7 grams methylprednisolone 4 mg tablets in See Rx Instructions PO .COMPLEX 06/02/23 06/08/23 06/06/23 Rx a dose pack (Medrol (Brijesh)) #21 ea hydrocodone 5 mg-acetaminophen 325 1 tab PO TID PRN Pain 06/07/23 06/07/23 Unknown History mg tablet docusate sodium 100 mg capsule 100 mg PO BID 06/08/23 06/08/23 06/06/23 History lidocaine-prilocaine 2.5 %-2.5 % See Rx Instructions .Route .COMPLEX 06/08/23 06/08/23 Unknown History topical cream ondansetron 8 mg disintegrating See Rx Instructions .Route .COMPLEX 06/08/23 06/08/23 Unknown History tablet prochlorperazine maleate 10 mg See Rx Instructions .Route .COMPLEX 06/08/23 06/08/23 Unknown History tablet Allergies Allergy/AdvReac Type Severity Reaction Status Date / Time Penicillins Allergy ADR-Itching Verified 05/14/23 08:39 lisinopril AdvReac Severe ADR-tongue Verified 05/14/23 08:39 swelling and shortness of breath Current Medications Generic Name Dose Route Start Last Admin Trade Name Freq PRN Reason Stop Dose Admin Apixaban 5 mg 06/08/23 09:00 06/08/23 09:07 Apixaban 5 Mg Tablet PO 5 mg BID FARZANEH Administration Clopidogrel Bisulfate 75 mg 06/08/23 09:00 06/08/23 09:06 Clopidogrel 75 Mg Tablet PO 75 mg DAILY FARZANEH Administration Famotidine 20 mg 06/07/23 23:30 06/08/23 13:53 Famotidine 20 Mg/2 Ml Inj IVP 20 mg Q12H FARZANEH Administration Guaifenesin 600 mg 06/08/23 09:00 06/08/23 09:06 Guaifenesin 600 Mg Tablet PO 600 mg BID FARZANEH Administration Sodium Chloride 1,000 mls @ 90 mls/hr 06/08/23 08:30 06/08/23 09:09 Sodium Chloride 0.9% IV 06/08/23 16:29 90 mls/hr .Q11H7M FARZANEH Administration Metoprolol Tartrate 25 mg 06/08/23 09:00 06/08/23 09:20 Metoprolol Tartrate 25 Mg Tablet PO 25 mg BID FARZANEH Administration Sodium Chloride 1 gm 06/08/23 09:10 06/08/23 09:19 Sodium Chloride 1 Gm Tablet PO 1 gm BID FARZANEH Administration PFSH Acute PFSH: Medical History Carotid stenosis History of CVA (cerebrovascular accident) Follows with Dr Osuna - 04/27/2016 Hypercholesterolemia Surgical History Hx of colonoscopy At least 5 years, Polyps were found S/P hernia surgery S/P knee surgery Family History Father CHF (congestive heart failure) Hypertension Diabetes Mother Stroke Hypertension Diabetes Social History Smoking and tobacco/nicotine status: never used tobacco/nicotine Vitals/I&O/Wt Last Vital Signs Temp 99.2 F 06/08/23 07:29 Pulse 98 06/08/23 12:00 Resp 19 H 06/08/23 12:00 BP 114/51 06/08/23 12:00 Pulse Ox 97 06/08/23 09:09 O2 Del Method Room Air 06/08/23 09:09 06/07/23 06/08/23 06/08/23 22:59 06:59 14:59 Intake Total 998.042 / 882.519 4446.958 / 2800.000 360 / 360 Balance 998.042 / 900.503 2560.958 / 2800.000 360 / 360 Weight last 48 hrs Weight 167 lb Physical Exam Narrative: GENERAL: The patient is alert and oriented times three. Not in any acute distress. [] HEENT: No significant pallor, icterus or lymphadenopathy.Oral cavity: There are no mucous membrane lesions. NECK: Trachea appears to be central. No masses noted. No JVD or thyromegaly appreciated. RESPIRATORY: Chest is symmetrical. No intercostals muscle retraction or any accessory muscle activation. There is no chest wall tenderness. Breath sounds are heard bilaterally. No rales or rhonchi heard. No evidence of any consolidation. BREASTS: Deferred. HEART: The heart sounds are normal. No S3 or S4. Short systolic murmur in the lower sternal border. No diastolic murmurs.. No pericardial rub ABDOMEN: No vessel pulsations or distention. No tenderness. No organomegaly appreciated. Bowel sounds are normally heard. : Deferred. RECTAL: Deferred. LYMPHATIC: No lymphadenopathy noted in the neck. EXTREMITIES: No edema or cyanosis. No clubbing. MUSCULOSKELETAL: No acute joint deformities or swelling SKIN: There are no significant rashes or ecchymosis NEUROPSYCHIATRIC: The patient is alert and oriented x3. Appears to be in a good mood. No tremors or rigidity noted. Data 06/09/23 03:18 06/09/23 03:18 Other Labs: Laboratory Last Values WBC 4.01 10^3/uL (3.29-11.43) 06/08/23 04:05 RBC 2.94 10^6/uL (3.85-5.65) L 06/08/23 04:05 Hgb 9.10 g/dL (11.27-16.99) L 06/08/23 04:05 Hct 26.7 % (37-53) L 06/08/23 04:05 MCV 90.8 fl (82-101) 06/08/23 04:05 MCH 31.0 pg (27-33) 06/08/23 04:05 MCHC 34.1 g/dL (30-55) 06/08/23 04:05 RDW 14.0 % (12.1-15.1) 06/08/23 04:05 Plt Count 231 10^3/cmm (157-399) 06/08/23 04:05 MPV 11.6 fL (7.4-10.4) H 06/08/23 04:05 Neut % (Auto) 86.6 % 06/08/23 04:05 Lymph % (Auto) 2.7 % 06/08/23 04:05 [place] % (Auto) 9.0 % 06/08/23 04:05 Eos % (Auto) 0.2 % 06/08/23 04:05 Baso % (Auto) 0.5 % 06/08/23 04:05 Neut # (Auto) 3.47 10^3/uL (1.8-7.7) 06/08/23 04:05 Lymph # (Auto) 0.1 10^3/uL (0.8-4.8) L 06/08/23 04:05 [place] # (Auto) 0.4 10^3/uL (0.2-0.9) 06/08/23 04:05 Eos # (Auto) 0.0 10^3/uL (0.0-0.8) 06/08/23 04:05 Baso # (Auto) 0.0 10^3/uL (0.0-0.1) 06/08/23 04:05 Nucleated RBC % (auto) 0 % 06/08/23 04:05 Nucleated RBCs # 0.0 /100WBC 06/08/23 04:05 PT 13.80 SECONDS (12.1-14.9) 06/07/23 19:24 INR 1.02 (0.8-1.2) 06/07/23 19:24 Sodium 128 mmol/L (136-145) L 06/08/23 04:05 Potassium 4.2 mmol/L (3.5-5.1) 06/08/23 04:05 Chloride 95 mmol/L (98-107) L 06/08/23 04:05 Carbon Dioxide 24 mmol/L (22-29) 06/08/23 04:05 Anion Gap 13.2 (5-19) 06/08/23 04:05 BUN 13 mg/dL (8-23) 06/08/23 04:05 Creatinine 0.5 mg/dL (0.7-1.2) L 06/08/23 04:05 GFR Calculation Not Reportable 06/08/23 04:05 Glucose 112 mg/dL (65-115) 06/08/23 04:05 Calculated Osmolality 267 mOsm/kg (285-295) L 06/08/23 04:05 Uric Acid 2.3 mg/dL (3.4-7.0) L 06/08/23 04:05 Calcium 8.3 mg/dL (8.5-10.5) L 06/08/23 04:05 Magnesium 1.8 mg/dL (1.7-2.3) 06/08/23 04:05 Total Bilirubin 0.8 mg/dL (0.15-1.2) 06/08/23 04:05 AST 14 U/L (0-40) 06/08/23 04:05 ALT 23 U/L (0-41) 06/08/23 04:05 Alkaline Phosphatase 190 U/L (40-130) H 06/08/23 04:05 Troponin T Baseline 13 ng/L (0-15) 06/07/23 19:24 Troponin T 120 Minute 12.69 ng/L (0-15) 06/07/23 21:35 Delta Troponin T -0.31 ABS# (0-10) L 06/07/23 21:35 Troponin T Hi Sens 6Hr 14.06 ng/L (0-15) 06/08/23 01:13 Troponin T Hi Sens 6Hr Delta 1.06 ng/L (0-12) 06/08/23 01:13 NT-Pro-B Natriuret Pep 412 pg/mL (0-125) H 06/08/23 04:05 Total Protein 5.4 g/dL (6.6-8.7) L 06/08/23 04:05 Albumin 2.7 g/dL (3.5-5.2) L 06/08/23 04:05 Globulin 2.7 g/dL (1.3-4.6) 06/08/23 04:05 TSH 0.44 uIU/mL (0.27-4.20) 06/08/23 04:05 Urine Color Yellow (Yellow) 06/07/23 23:10 Urine Appearance Clear (CLEAR) 06/07/23 23:10 Urine pH 5 (5-7) 06/07/23 23:10 Ur Specific [place] 1.025 (1.005-1.030) 06/07/23 23:10 Urine Protein Neg (Negative) 06/07/23 23:10 Urine Glucose (UA) Norm (Normal) 06/07/23 23:10 Urine Ketones Negative (Negative) 06/07/23 23:10 Urine Blood Neg (Negative) 06/07/23 23:10 Urine Nitrate Negative (Negative) 06/07/23 23:10 Urine Bilirubin Neg (Negative) 06/07/23 23:10 Urine Urobilinogen Neg mg/dL (Negative) 06/07/23 23:10 Ur Leukocyte Esterase Negative (Negative) 06/07/23 23:10 Ur Random Sodium 99 mmol/L 06/08/23 13:16 Other data: EKG from 06/07/2023 Atrial fibrillation with rapid ventricular rate of 185 bpm. Occasional PVCs. Diffuse nonspecific ST-T changes. Date of Service: 09/07/22 Procedure(s): NM luc perf SPECT r/s* [id number] ?IMPRESSIONS ?1. Myocardial perfusion imaging is normal. ?2. Overall left ventricular systolic function is normal without regional wall?motion abnormalities, LVEF=66%. ?3. EKG portion of the study will be reported separately. ?4. Scan indicates low risk for cardiac events. ?Shahnaz Alexandra MD? ?(Electronically Signed) Date of Service: 07/17/22 Procedure(s): CV carotid duplex BI* [id number] ?CONCLUSIONS ?Right ICA stenosis < 50%. ?No interval change in stenosis since prior exam. ?Known occluded left ICA. ?Dr. Robyn Lomax DO? ?(Electronically Signed) Date of Service: 07/17/22 Procedure(s): CV. echo complete* [id number] ?CONCLUSIONS ?Normal left ventricular size and systolic function, EF 64 %. ?Mild left ventricular hypertrophy. ?No regional wall motion abnormalities.? ?Trace to mild tricuspid valve regurgitation.? ?Estimated pulmonary artery peak systolic pressure 30 mmHg. ?There is no pericardial effusion. ?There are no intracardiac masses. ?No similar previous studies are available for comparison ?Dr Anson Alcocer MD [facility]?(Electronically Signed) Carotid duplex (01/10/2018) CONCLUSIONS ?Right ICA stenosis < 50%.? Stable with no progression. ?Known occluded left ICA. A&P Assessment and plan (1) Atrial fibrillation with rapid ventricular response: Patient seems to have symptomatic atrial fibrillation rapid ventricular rate. In view of the worsening symptoms, it might be appropriate to start him on an antiarrhythmic drug. I may start him on amiodarone 400 mg p.o. twice daily for 10 days followed by 400 mg daily for 10 days followed by 200 mg p.o. daily (2) Ventricular arrhythmia: Patient has a history of nonsustained ventricular tachycardia / frequent PVCs. Amiodarone may help the ventricular arrhythmia as well. (3) Deep vein thrombosis (DVT) of right upper extremity: Patient is on Eliquis. This may be continued. This could be related to the oropharyngeal CA. (4) History of CVA (cerebrovascular accident): Has not had a recurrence. He is known to have chronic occlusion of the left ICA. The right ICA has less than 50% stenosis. (5) Oropharyngeal cancer: The patient is undergoing chemoradiation. Management as per the oncologist. Plan Other problems are Hyponatremia Anemia History of hypertension History of type 2 diabetes History of dyslipidemia Patient had an echocardiogram today. I will be reviewing the echocardiogram. Based on the clinical progress, further recommendations will be made. Thank you for the opportunity to evaluate this patient and make these recommendations Coding Level of Care Code 07917 Diagnoses Atrial fibrillation with rapid ventricular response I48.91 Ventricular arrhythmia I49.9 Deep vein thrombosis (DVT) of right upper extremity I82.621 History of CVA (cerebrovascular accident) Z86.73 Oropharyngeal cancer C10.9
[2023-06-08 14:48] LABS: Sodium 125 mmol/L (136-145)
--- NOTE | 2023-06-08 15:08 | P.PN_ITS ---
Subjective Subjective: Patient this morning was in sinus rhythm Hemodynamically stable Cardiology consult requested Hemoglobin 9.1 Magnesium 1.8 Potassium 4.2 Patient sodium has dropped with IV fluids we will consult nephro and put patient on fluid suction Vitals/I&O/Wt Last Vital Signs Temp 99.2 F 06/08/23 07:29 Pulse 98 06/08/23 12:00 Resp 19 H 06/08/23 12:00 BP 114/51 06/08/23 12:00 Pulse Ox 97 06/08/23 09:09 O2 Del Method Room Air 06/08/23 09:09 06/08/23 06/08/23 06/08/23 06:59 14:59 22:59 Intake Total 1801.958 / 2800.000 360 / 360 Balance 1801.958 / 2800.000 360 / 360 Weight last 48 hrs Weight 75.75 kg Physical Exam Narrative: Awake and alert GCS 15 Hoarseness of voice GCS 15 Pleasant at the bedside S1, S2 sinus rhythm Blood pressure is on the lower side Soft blood pressure Pleasant and cooperative Data 06/08/23 04:05 06/08/23 14:20 A&P Assessment and plan (1) Oropharyngeal cancer: (2) Deep vein thrombosis (DVT) of right upper extremity: (3) Ventricular arrhythmia: (4) Acute hyponatremia: (5) Atrial fibrillation with rapid ventricular response: (6) Palpitations: (7) Paroxysmal SVT (supraventricular tachycardia): Plan SVT history currently patient is in sinus rhythm, patient has been put on amiodarone considering low blood pressure discontinued metoprolol Patient to continue Eliquis Cardiology consultation requested today For hypovolemic acute hyponatremia I will consult nephro patient sodium has worsened with IV fluids, will give 1 g salt tablets, put patient on fluid res triction requested hyponatremia work-up Keep potassium of 4, magnesium of 8 Attestations Medical Necessity Statement*: Continue medical management Diagnoses Oropharyngeal cancer C10.9 Deep vein thrombosis (DVT) of right upper extremity I82.621 Ventricular arrhythmia I49.9 Acute hyponatremia E87.1 Atrial fibrillation with rapid ventricular response I48.91 Palpitations R00.2 Paroxysmal SVT (supraventricular tachycardia) I47.1
[2023-06-08] MEDS: amiodarone 200 mg Tablet 400 MG PO ×2 (15:47→22:21)
[2023-06-08] MEDS: atorvastatin 40 mg Tablet PO (18:34)
--- NOTE | 2023-06-08 19:32 | PM.CONSULT ---
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 Patient was noted to be in rapid A-fib and was started on Cardizem drip. Sodium on presentation was 128, dropped to 125 today. IV fluids were discontinued and currently on sodium chloride tabs. Patient denies any complaints. Review of prior records show that patient has chronic low sodium levels in the low 130s range. Noted urine sodium of 99 and urine osmolality is pending. Review of Systems Narrative: OTHER ros ENAGTIVE Medications/Allergies Home Medications Medication Instructions Recorded Confirmed Last Taken Type clopidogrel 75 mg tablet 75 mg PO QPM 04/06/22 06/08/23 06/04/23 History glucosamine sulf dipot 1 cap PO BID 04/06/22 06/08/23 06/06/23 History chlr,msm,chond 550 mg-C 30 mg-rama 1 mg capsule latanoprost 0.005 % eye drops 1 drp ophthalmic (eye) QPM 05/10/22 06/08/23 06/06/23 History metoprolol tartrate 25 mg tablet 25 mg PO BID #180 tabs 01/29/23 06/08/23 06/06/23 Rx omeprazole 40 mg capsule,delayed 1 cap PO QAM 04/03/23 06/08/23 06/06/23 History release atorvastatin 40 mg tablet 40 mg PO QPM 04/06/23 06/08/23 06/06/23 History apixaban 5 mg tablet (Eliquis) 5 mg PO BID #60 tabs 05/02/23 06/08/23 06/04/23 Rx valsartan 80 mg tablet 80 mg PO DAILY #90 tabs 05/14/23 06/08/23 06/06/23 Rx albuterol sulfate 90 mcg/actuation 2 inh inhalation Q4H PRN shortness 06/02/23 06/08/23 Unknown Rx aerosol inhaler of breath or wheezing #6.7 grams methylprednisolone 4 mg tablets in See Rx Instructions PO .COMPLEX 06/02/23 06/08/23 06/06/23 Rx a dose pack (Medrol (Brijesh)) #21 ea hydrocodone 5 mg-acetaminophen 325 1 tab PO TID PRN Pain 06/07/23 06/07/23 Unknown History mg tablet docusate sodium 100 mg capsule 100 mg PO BID 06/08/23 06/08/23 06/06/23 History lidocaine-prilocaine 2.5 %-2.5 % See Rx Instructions .Route .COMPLEX 06/08/23 06/08/23 Unknown History topical cream ondansetron 8 mg disintegrating See Rx Instructions .Route .COMPLEX 06/08/23 06/08/23 Unknown History tablet prochlorperazine maleate 10 mg See Rx Instructions .Route .COMPLEX 06/08/23 06/08/23 Unknown History tablet Allergies Allergy/AdvReac Type Severity Reaction Status Date / Time Penicillins Allergy ADR-Itching Verified 05/14/23 08:39 lisinopril AdvReac Severe ADR-tongue Verified 05/14/23 08:39 swelling and shortness of breath Current Medications Generic Name Dose Route Start Last Admin Trade Name Freq PRN Reason Stop Dose Admin Amiodarone HCl 400 mg 06/08/23 14:35 06/08/23 18:34 Amiodarone 200 Mg Tablet PO Not Given BID FARZANEH Apixaban 5 mg 06/08/23 09:00 06/08/23 18:34 Apixaban 5 Mg Tablet PO 5 mg BID FARZANEH Administration Atorvastatin Calcium 40 mg 06/08/23 18:00 06/08/23 18:34 Atorvastatin 40 Mg Tablet PO 40 mg QPM FARZANEH Administration Clopidogrel Bisulfate 75 mg 06/08/23 09:00 06/08/23 09:06 Clopidogrel 75 Mg Tablet PO 75 mg DAILY FARZANEH Administration Famotidine 20 mg 06/07/23 23:30 06/08/23 13:53 Famotidine 20 Mg/2 Ml Inj IVP 20 mg Q12H FARZANEH Administration Guaifenesin 600 mg 06/08/23 09:00 06/08/23 18:34 Guaifenesin 600 Mg Tablet PO 600 mg BID FARZANEH Administration Latanoprost 1 drop 06/08/23 18:00 06/08/23 18:36 Latanoprost 0.005% Op Soln 2.5 Ml Btl OPHTHALMIC Not Given QPM FARZANEH Sodium Chloride 1 gm 06/08/23 09:10 06/08/23 18:34 Sodium Chloride 1 Gm Tablet PO 1 gm BID FARZANEH Administration PFSH Acute PFSH: Medical History Carotid stenosis History of CVA (cerebrovascular accident) Follows with Dr Osuna - 04/27/2016 Hypercholesterolemia Surgical History Hx of colonoscopy At least 5 years, Polyps were found S/P hernia surgery S/P knee surgery Family History Father CHF (congestive heart failure) Hypertension Diabetes Mother Stroke Hypertension Diabetes Social History Smoking and tobacco/nicotine status: never used tobacco/nicotine Vitals/I&O/Wt Last Vital Signs Temp 99.6 F 06/08/23 16:00 Pulse 80 06/08/23 16:00 Resp 19 H 06/08/23 16:00 BP 112/56 06/08/23 16:00 Pulse Ox 97 06/08/23 09:09 O2 Del Method Room Air 06/08/23 09:09 06/08/23 06/08/23 06/08/23 06:59 14:59 22:59 Intake Total 1801.958 / 2800.000 360 / 360 236 / 596 Balance 1801.958 / 2800.000 360 / 360 236 / 596 Weight last 48 hrs Weight 75.75 kg Physical Exam Narrative: AWAKE , ALERT HEENT S1S2 RRR PER REPORT LUNGS CLEAR PER REPORT NO EDEMA Data 06/09/23 03:18 06/09/23 03:18 A&P Assessment and plan (1) Acute hyponatremia: Plan 1. Hyponatremia: Hypovolemic, suspect patient has underlying SIADH component as well. Agree with stopping IV fluids and started fluid restriction and salt tablets, added IV albumin. Follow-up on urine osmolality. 2. History of esophageal cancer 3. Rapid A-fib, rate controlled now 4. History of hypertension 5.DVT right upper extremity Patient evaluated using audiovisual cart. Time spent 40 minutes Consult Attestations Medical Necessity Statement: per medicine team Coding Level of Care Code Acute Code for Chg Fwd Diagnoses Acute hyponatremia E87.1
[2023-06-08 20:09] LABS: Sodium 127 mmol/L (136-145)
[2023-06-08] MEDS: albumin 25 G/100 ML BAG 60 G IV (20:23)
[2023-06-08] MEDS: magnesium oxide 400 mg tablet PO (20:23)
[2023-06-08 22:38] LABS: Sodium 128 mmol/L (136-145)
[2023-06-08] MEDS: dilTIAZem 5 mg/mL SDV 5 mL IVP (23:41)
[2023-06-09] VITALS (10 sets, daily range): BP systolic 102–133; BP diastolic 55–95; PULSE 75–125; RESP 16–27; TEMP 37–37.8; O2SAT 92–96
[2023-06-09] MEDS: dilTIAZem 60 mg Tablet PO (00:17)
--- NOTE | 2023-06-09 00:36 | PC.NURSE ---
appx 2200 Dr Mcknight notified that pt was having runs of SVT, 400 mg PO amiodarone given, SVT runs continued, pt started on amio gtt with bolus, SVT runs were less frequent but continued then pt went into afib rvr at rate of 160s, 5 mg cardizem IV push given, pt still in and out of afib, 60 mg PO cardizem given and amio gtt switched to cardizem gtt, pt currently SR in 80's, resting comfortably in bed, continue to monitor
[2023-06-09] MEDS: famotidine 20 mg/2 mL INJ IVP ×2 (02:09→15:04)
[2023-06-09] MEDS: albumin 25 G/100 ML BAG 60 G IV ×3 (03:18→19:54)
[2023-06-09] MEDS: sodium chloride 0.9% 500 ML IV (03:18)
[2023-06-09 03:31] LABS: Basophils % 0.3 %; Eosinophils % 0.6 %; Hematocrit 26.4 % (37-53); Lymphocytes # 0.1 10^3/uL (0.8-4.8); Lymphocytes % 3.2 %; Mean Corpuscular HGB Conc 33.7 g/dL (30-55); Mean Corpuscular Hemoglobin 30.4 pg (27-33); Mean Corpuscular Volume 90.1 fl (82-101); Mean Platelet Volume 10.3 fL (7.4-10.4); Monocytes # 0.4 10^3/uL (0.2-0.9); Monocytes % 13.6 %; Neutrophils # 2.58 10^3/uL (1.8-7.7); Neutrophils % 81.7 %; Nucleated Red Blood Cells % 0 %; Platelet Count 213 10^3/cmm (157-399); Red Blood Count 2.93 10^6/uL (3.85-5.65); Red Cell Distribution Width 13.9 % (12.1-15.1); White Blood Count 3.16 10^3/uL (3.29-11.43)
[2023-06-09 03:49] LABS: Anion Gap 13.7 (5-19); Blood Urea Nitrogen 8 mg/dL (8-23); Calcium 8.3 mg/dL (8.5-10.5); Carbon Dioxide 25 mmol/L (22-29); Chloride 92 mmol/L (98-107); Glucose 111 mg/dL (65-115); Osmolality Calculated 263 mOsm/kg (285-295); Potassium 3.7 mmol/L (3.5-5.1); Sodium 127 mmol/L (136-145)
[2023-06-09 03:51] LABS: Magnesium 1.9 mg/dL (1.7-2.3)
--- NOTE | 2023-06-09 06:16 | PC.NURSE ---
appx 0227 pt back in afib rvr rate 130s-160s, cardizem titrated up, 500 ml fluid bolus given, cardizem maxed out at 15 mg/hr, heart rate currently 100s-110s, Dr Mcknight updated, continue to monitor
--- NOTE | 2023-06-09 06:29 | W.PM.EVENTAC ---
Event Note Event Note: Patient was found to be in atrial fibrillation with rapid ventricular rate from 130 to 180, intermittently going back to sinus rhythm, had mild chest pain initially but then he became asymptomatic. He received 2 doses of amiodarone p.o. 400 mg yesterday, and was started on amiodarone drip as per the protocol following discussion with specialty manufacturing supervisor Dr. Alcocer. But he remained in A-fib with RVR for 1 hour with no response to amiodarone drip. Hence he received p.o. Cardizem 60 mg x 1 and IV Cardizem 5 mg push. He remained in normal sinus rhythm for 15 to 20 minutes but then again switched back to A-fib with RVR. Hence this was started on Cardizem drip at 12.5 and also received 1 fluid bolus of 500 ml. He currently has normal sinus rhythm and afib alternating at 110-120.He has been asymptomatic all the time. Event Notes Attestations Time Spent in Patient Care: More than 30 minutes
--- NOTE | 2023-06-09 07:00 | PM.PN ---
Subjective Subjective: Sinus rhythm Hemodynamically stable Vitals/I&O/Wt Last Vital Signs Temp 99.6 F 06/09/23 16:00 Pulse 85 06/09/23 16:00 Resp 21 H 06/09/23 16:00 BP 133/95 06/09/23 16:00 Pulse Ox 94 06/09/23 16:00 O2 Del Method Room Air 06/09/23 12:00 O2 Flow Rate 2 06/09/23 08:00 06/09/23 06/09/23 06/09/23 06:59 14:59 22:59 Intake Total 1046.512 / 3142.512 1734.292 / 1734.292 Output Total 650 / 950 450 / 450 Balance 396.512 / 2192.512 1284.292 / 1284.292 Weight last 48 hrs Weight 75.75 kg Physical Exam Narrative: S1, S2 Euvolemic Abdomen soft Pleasant cough Hoarseness of voice No new focal deficit Data 06/09/23 03:18 06/09/23 03:18 A&P Assessment and plan (1) Stage IV malignant neoplasm of esophagus: (2) Oropharyngeal cancer: (3) Deep vein thrombosis (DVT) of right upper extremity: (4) Ventricular arrhythmia: (5) Acute hyponatremia: (6) Atrial fibrillation with rapid ventricular response: (7) Ventricular tachycardia (paroxysmal): (8) Paroxysmal SVT (supraventricular tachycardia): Plan Hyponatremia 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 Sodium improving A-fib RVR improved continue amiodarone regimen along Cardizem Continue Eliquis for DVT as well Appreciate nephro and cardiology recommendations Valsartan on hold along metoprolol related to low blood pressure Patient will follow-up with [place] oncologist Attestations Medical Necessity Statement*: Continue medical management Coding Level of Care Code Acute Code for Chg Fwd Diagnoses Stage IV malignant neoplasm of esophagus C15.9 Oropharyngeal cancer C10.9 Deep vein thrombosis (DVT) of right upper extremity I82.621 Ventricular arrhythmia I49.9 Acute hyponatremia E87.1 Atrial fibrillation with rapid ventricular response I48.91 Ventricular tachycardia (paroxysmal) I47.2 Paroxysmal SVT (supraventricular tachycardia) I47.1
--- NOTE | 2023-06-09 08:11 | P.PN_ITS ---
Subjective Subjective: Overnight events noted Patient on cardizeme drip at 15 Cardiology and nephro recommendations appreciated. Vitals/I&O/Wt Last Vital Signs Temp 98.9 F 06/09/23 07:51 Pulse 75 06/09/23 08:00 Resp 16 06/09/23 08:00 BP 102/64 06/09/23 07:51 Pulse Ox 94 06/09/23 08:00 O2 Del Method Nasal Cannula 06/09/23 08:00 O2 Flow Rate 2 06/09/23 08:00 06/08/23 06/09/23 06/09/23 22:59 06:59 14:59 Intake Total 1736 / 2096 1046.512 / 3142.512 Output Total 300 / 300 650 / 950 250 / 250 Balance 1436 / 1796 396.512 / 2192.512 -250 / -250 Weight last 48 hrs Weight 75.75 kg Physical Exam Narrative: Blood pressure on softer side Currently on 2 L GCS 15, nonfocal neuro exam hospital was Hypovolemic appearance variable with S1-S2 Data 06/09/23 03:18 06/09/23 03:18 A&P Assessment and plan (1) Oropharyngeal cancer: (2) Deep vein thrombosis (DVT) of right upper extremity: (3) Ventricular arrhythmia: (4) Acute dyspnea: (5) Acute hyponatremia: (6) Atrial fibrillation with rapid ventricular response: (7) Paroxysmal SVT (supraventricular tachycardia): Plan A-fib RVR Patient was started on amiodarone drip Biatrial enlargement We will touch this with cardiology today Continue Eliquis Acute hyponatremia Appreciate nephro recommendations Patient will need work-up for SIADH rule out Currently on salt tablets and fluid restriction he received 500 mL bolus overnight 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 Right arm swelling we will request CT scan of chest with angiogram creatinine is normal He has history of rt arm subclavian thrombosis Full code Fluid resected diet Salt tablets Hyponatremia work-up has been requested yesterday Patient is requiring IV amiodarone we will change his status to inpatient Discussed risk with nephro and cardiology Attestations Medical Necessity Statement*: Continue medical management Diagnoses Oropharyngeal cancer C10.9 Deep vein thrombosis (DVT) of right upper extremity I82.621 Ventricular arrhythmia I49.9 Acute dyspnea R06.00 Acute hyponatremia E87.1 Atrial fibrillation with rapid ventricular response I48.91 Paroxysmal SVT (supraventricular tachycardia) I47.1
[2023-06-09] MEDS: potassium chloride ER 20 mEq Tablet 40 MEQ PO (09:03)
[2023-06-09] MEDS: magnesium oxide 400 mg tablet PO ×2 (09:03→17:10)
[2023-06-09] MEDS: clopidogrel 75 mg Tablet PO (09:03)
[2023-06-09] MEDS: sodium chloride 1 gm Tablet PO ×2 (09:03→17:09)
[2023-06-09] MEDS: amiodarone 200 mg Tablet 400 MG PO ×2 (09:03→17:10)
[2023-06-09] MEDS: apixaban 5 mg Tablet PO ×2 (09:03→17:10)
[2023-06-09] MEDS: guaiFENesin 600 mg Tablet PO ×2 (09:18→17:11)
--- NOTE | 2023-06-09 10:22 | P.PN_ITS ---
Subjective Subjective: This patient apparently was told to have a stage IV esophageal cancer. Also came to know that the swelling of the right upper extremity started again after he stopped the Eliquis for few days. The Eliquis was restarted only yesterday Patient started having episodes of atrial fibrillation with rapid ventricular last night. So he was started on IV Cardizem for rate control. Currently he is on IV Cardizem 15 mg/h. Denies any chest pain. No unusual shortness of breath. He had echocardiogram yesterday and the results are as follows. Medications: Medication Review Details: Current Medications Hydrocodone Bitart/Acetaminophen (Hydrocodone-Acetaminophen 5-325 Mg Tablet) 1 tab PO TID PRN PRN Reason: Pain Albuterol/Ipratropium (Ipratropium-Albuterol 3 Ml Neb) 3 ml INHALATION BID PRN PRN Reason: SHORTNESS OF BREATH Amiodarone HCl (Amiodarone 200 Mg Tablet) 400 mg PO BID [facility] Last Admin: 06/09/23 09:03 Dose: 400 mg Apixaban (Apixaban 5 Mg Tablet) 5 mg PO BID [facility] Last Admin: 06/09/23 09:03 Dose: 5 mg Atorvastatin Calcium (Atorvastatin 40 Mg Tablet) 40 mg PO QPM [facility] Last Admin: 06/08/23 18:34 Dose: 40 mg Clopidogrel Bisulfate (Clopidogrel 75 Mg Tablet) 75 mg PO DAILY [facility] Last Admin: 06/09/23 09:03 Dose: 75 mg Famotidine (Famotidine 20 Mg/2 Ml Inj) 20 mg IVP Q12H [facility] Last Admin: 06/09/23 02:09 Dose: 20 mg Guaifenesin (Guaifenesin 600 Mg Tablet) 600 mg PO BID [facility] Last Admin: 06/09/23 09:18 Dose: 600 mg Albumin Human (Albumin) 25 g in 100 mls @ 60 mls/hr IV Q8H [facility] Last Infusion: 06/09/23 05:08 Dose: Infused Amiodarone HCl 900 mg/Dextrose/ IV Miscellaneous Supplies 518 mls @ 0 mls/hr IV .Q0M [facility]; Protocol Last Titration: 06/09/23 00:18 Dose: 0 mg/min, 0 mls/hr Diltiazem HCl 50 mg/ Sodium (Chloride) 50 mls @ 0 mls/hr IV .Q0M [facility]; Protocol Last Admin: 06/09/23 09:19 Dose: 15 mg/hr, 15 mls/hr Latanoprost (Latanoprost 0.005% Op Soln 2.5 Ml Btl) 1 drop OPHTHALMIC QPM [facility] Last Admin: 06/08/23 18:36 Dose: Not Given Magnesium Oxide (Magnesium Oxide 400 Mg Tablet) 400 mg PO BID [facility] Last Admin: 06/09/23 09:03 Dose: 400 mg Sodium Chloride (Sodium Chloride 1 Gm Tablet) 1 gm PO BID [facility] Last Admin: 06/09/23 09:03 Dose: 1 gm Vitals/I&O/Wt Last Vital Signs Temp 98.9 F 06/09/23 07:51 Pulse 75 06/09/23 08:00 Resp 16 06/09/23 08:00 BP 102/64 06/09/23 07:51 Pulse Ox 94 06/09/23 08:00 O2 Del Method Nasal Cannula 06/09/23 08:00 O2 Flow Rate 2 06/09/23 08:00 06/08/23 06/09/23 06/09/23 22:59 06:59 14:59 Intake Total 1736 / 2096 1046.512 / 3142.512 368.292 / 368.292 Output Total 300 / 300 650 / 950 250 / 250 Balance 1436 / 1796 396.512 / 2192.512 118.292 / 118.292 Weight last 48 hrs Weight 167 lb Physical Exam Narrative: GENERAL: The patient is alert and oriented times three. Not in any acute distress. [] HEENT: No significant pallor, icterus or lymphadenopathy.Oral cavity: There are no mucous membrane lesions. NECK: Trachea appears to be central. No masses noted. No JVD or thyromegaly appreciated. RESPIRATORY: Chest is symmetrical. No intercostals muscle retraction or any accessory muscle activation. There is no chest wall tenderness. Breath sounds are heard bilaterally. No rales or rhonchi heard. No evidence of any consolidation. BREASTS: Deferred. HEART: The heart sounds are normal. No S3 or S4. Short systolic murmur in the lower sternal border. No diastolic murmurs.. No pericardial rub ABDOMEN: No vessel pulsations or distention. No tenderness. No organomegaly appreciated. Bowel sounds are normally heard. : Deferred. RECTAL: Deferred. LYMPHATIC: No lymphadenopathy noted in the neck. EXTREMITIES: Diffuse swelling of the right upper extremity. MUSCULOSKELETAL: No acute joint deformities or swelling SKIN: There are no significant rashes or ecchymosis NEUROPSYCHIATRIC: The patient is alert and oriented x3. Appears to be in a good mood. No tremors or rigidity noted. Data 06/09/23 03:18 06/09/23 03:18 Other Labs: Laboratory Last Values WBC 3.16 10^3/uL (3.29-11.43) L 06/09/23 03:18 RBC 2.93 10^6/uL (3.85-5.65) L 06/09/23 03:18 Hgb 8.90 g/dL (11.27-16.99) L 06/09/23 03:18 Hct 26.4 % (37-53) L 06/09/23 03:18 MCV 90.1 fl (82-101) 06/09/23 03:18 MCH 30.4 pg (27-33) 06/09/23 03:18 MCHC 33.7 g/dL (30-55) 06/09/23 03:18 RDW 13.9 % (12.1-15.1) 06/09/23 03:18 Plt Count 213 10^3/cmm (157-399) 06/09/23 03:18 MPV 10.3 fL (7.4-10.4) 06/09/23 03:18 Neut % (Auto) 81.7 % 06/09/23 03:18 Lymph % (Auto) 3.2 % 06/09/23 03:18 [place] % (Auto) 13.6 % 06/09/23 03:18 Eos % (Auto) 0.6 % 06/09/23 03:18 Baso % (Auto) 0.3 % 06/09/23 03:18 Neut # (Auto) 2.58 10^3/uL (1.8-7.7) 06/09/23 03:18 Lymph # (Auto) 0.1 10^3/uL (0.8-4.8) L 06/09/23 03:18 [place] # (Auto) 0.4 10^3/uL (0.2-0.9) 06/09/23 03:18 Eos # (Auto) 0.0 10^3/uL (0.0-0.8) 06/09/23 03:18 Baso # (Auto) 0.0 10^3/uL (0.0-0.1) 06/09/23 03:18 Nucleated RBC % (auto) 0 % 06/09/23 03:18 Nucleated RBCs # 0.0 /100WBC 06/09/23 03:18 PT 13.80 SECONDS (12.1-14.9) 06/07/23 19:24 INR 1.02 (0.8-1.2) 06/07/23 19:24 Sodium 127 mmol/L (136-145) L 06/09/23 03:18 Potassium 3.7 mmol/L (3.5-5.1) 06/09/23 03:18 Chloride 92 mmol/L (98-107) L 06/09/23 03:18 Carbon Dioxide 25 mmol/L (22-29) 06/09/23 03:18 Anion Gap 13.7 (5-19) 06/09/23 03:18 BUN 8 mg/dL (8-23) 06/09/23 03:18 Creatinine 0.5 mg/dL (0.7-1.2) L 06/09/23 03:18 GFR Calculation Not Reportable 06/09/23 03:18 Glucose 111 mg/dL (65-115) 06/09/23 03:18 Calculated Osmolality 263 mOsm/kg (285-295) L 06/09/23 03:18 Uric Acid 2.3 mg/dL (3.4-7.0) L 06/08/23 04:05 Calcium 8.3 mg/dL (8.5-10.5) L 06/09/23 03:18 Magnesium 1.9 mg/dL (1.7-2.3) 06/09/23 03:18 Total Bilirubin 0.8 mg/dL (0.15-1.2) 06/08/23 04:05 AST 14 U/L (0-40) 06/08/23 04:05 ALT 23 U/L (0-41) 06/08/23 04:05 Alkaline Phosphatase 190 U/L (40-130) H 06/08/23 04:05 Troponin T Baseline 13 ng/L (0-15) 06/07/23 19:24 Troponin T 120 Minute 12.69 ng/L (0-15) 06/07/23 21:35 Delta Troponin T -0.31 ABS# (0-10) L 06/07/23 21:35 Troponin T Hi Sens 6Hr 14.06 ng/L (0-15) 06/08/23 01:13 Troponin T Hi Sens 6Hr Delta 1.06 ng/L (0-12) 06/08/23 01:13 NT-Pro-B Natriuret Pep 412 pg/mL (0-125) H 06/08/23 04:05 Total Protein 5.4 g/dL (6.6-8.7) L 06/08/23 04:05 Albumin 2.7 g/dL (3.5-5.2) L 06/08/23 04:05 Globulin 2.7 g/dL (1.3-4.6) 06/08/23 04:05 TSH 0.44 uIU/mL (0.27-4.20) 06/08/23 04:05 Urine Color Yellow (Yellow) 06/07/23 23:10 Urine Appearance Clear (CLEAR) 06/07/23 23:10 Urine pH 5 (5-7) 06/07/23 23:10 Ur Specific [place] 1.025 (1.005-1.030) 06/07/23 23:10 Urine Protein Neg (Negative) 06/07/23 23:10 Urine Glucose (UA) Norm (Normal) 06/07/23 23:10 Urine Ketones Negative (Negative) 06/07/23 23:10 Urine Blood Neg (Negative) 06/07/23 23:10 Urine Nitrate Negative (Negative) 06/07/23 23:10 Urine Bilirubin Neg (Negative) 06/07/23 23:10 Urine Urobilinogen Neg mg/dL (Negative) 06/07/23 23:10 Ur Leukocyte Esterase Negative (Negative) 06/07/23 23:10 Ur Random Sodium 99 mmol/L 06/08/23 13:16 Other data: The echocardiogram done on 06/08/2023 Normal left ventricular size and systolic function, EF 55 %. No ?regional wall motion abnormalities. ?Mild right atrial enlargement. ?Mild to moderate left atrial enlargement. ?Mild-moderate mitral valve regurgitation. ?Thickened aortic valve. ?[id number] tricuspid valve regurgitation. ?Mild pulmonary hypertension with an estimated pulmonary artery ?peak systolic pressure of 49 mm of Hg. ?There is no pericardial effusion. ?There are no intracardiac masses. ?Compared to the study from 07/17/2022, the PA pressure appears ?to have increased and there is development of biatrial ?enlargement. A&P Assessment and plan (1) Atrial fibrillation with rapid ventricular response: Patient seems to have symptomatic atrial fibrillation rapid ventricular rate. In view of the worsening symptoms, it might be appropriate to start him on an antiarrhythmic drug. I may start him on amiodarone 400 mg p.o. twice daily for 10 days followed by 400 mg daily for 10 days followed by 200 mg p.o. daily. The patient was started on IV Cardizem last night because of the atrial fibrillation with rapid ventricular rate. I may taper off the Cardizem IV and start him on p.o. Cardizem 60 mg p.o. every 8 hours. Patient currently seems to be in intermittent atrial fibrillation. (2) Ventricular arrhythmia: Patient has a history of nonsustained ventricular tachycardia / frequent PVCs. Amiodarone may help the ventricular arrhythmia as well. I also may start him on a Mag-Tab SR 84 mg p.o. twice daily. (3) Deep vein thrombosis (DVT) of right upper extremity: Patient is on Eliquis. This may be continued. This could be related to the esophageal cancer (4) History of CVA (cerebrovascular accident): Has not had a recurrence. He is known to have chronic occlusion of the left ICA. The right ICA has less than 50% stenosis. Currently has no residual motor weakness (5) Stage IV malignant neoplasm of esophagus: Patient is scheduled for chemotherapy on Sunday. Management as per the oncology service. If he stays in the sinus rhythm, may be able to go home tomorrow Plan Other problems are Hyponatremia, remained stable Anemia, slight drop in the hemoglobin since yesterday History of hypertension, currently normotensive History of type 2 diabetes History of dyslipidemia We will try to taper off the IV Cardizem and start him on p.o. Cardizem 60 mg p.o. every 8 hours. Continue on the amiodarone. Continue other symptomatic measures. Based on the clinical progress, further management decisions will be made. Attestations Medical Necessity Statement*: Patient requires continued hospital stay for close monitoring and further management Coding Level of Care Code Acute Code for Chg Fwd Diagnoses Atrial fibrillation with rapid ventricular response I48.91 Ventricular arrhythmia I49.9 Deep vein thrombosis (DVT) of right upper extremity I82.621 History of CVA (cerebrovascular accident) Z86.73 Stage IV malignant neoplasm of esophagus C15.9
--- NOTE | 2023-06-09 11:16 | CTR_ITS ---
PROCEDURE INFORMATION: Exam: CTA Chest With Contrast Exam date and time: 06/09/2023 3:46 PM Age: 72 years old Clinical indication: Other: Istory of right subclavian thrombosis, new onset a-fib; Prior surgery; Surgery date: 6+ months; Surgery type: Throat; Additional info: History of right subclavian thrombosis, new onset a-fib TECHNIQUE: Imaging protocol: Computed tomographic angiography of the chest with contrast. Exam focused on the arteries. 3D rendering (Not supervised by radiologist): MIP and/or 3D reconstructed images were created by the technologist. Radiation optimization: All CT scans at this facility use at least one of these dose optimization techniques: automated exposure control; mA and/or kV adjustment per patient size (includes targeted exams where dose is matched to clinical indication); or iterative reconstruction. Contrast material: OMNI 350; Contrast volume: 86 ml; Contrast route: INTRAVENOUS (IV); REPORTING DATA: Count of CT and Cardiac NM exams in prior 12 months: This patient has received [address] and 0 known cardiac nuclear medicine studies in the 12 months prior to the current study. COMPARISON: CR (CHEST, ) 06/07/2023 9:44 PM RADIATION DOSE METRICS: Total DLP (mGy-cm): 411.08 FINDINGS: Pulmonary arteries: Normal. No pulmonary emboli. Aorta: Small amount of calcification.. No aortic aneurysm. No aortic dissection. Other arteries: Small amount of systemic arterial calcification. Stranding in the right axillary fat surrounding blood vessels is probably edema secondary to the known right subclavian vein thrombosis. Less likely this is soft tissue infection. Please correlate clinically. No focal abscess or focal fluid collection here. Left chest port in satisfactory position. Otherwise, unremarkable chest wall. Lungs: See Diaphragm finding. Pleural spaces: Unremarkable. No pneumothorax. No pleural effusion. Heart: Normal heart size. No right heart strain. Malignancy surrounding and narrowing central bronchi. Coronary arteries: Moderate amount of coronary artery calcification. Lymph nodes: Unremarkable. No enlarged lymph nodes. Diaphragm: Small hiatal hernia. Stent in the mid and distal thoracic esophagus appears well expanded. Diffuse wall thickening of the esophagus around the distal stent and of the proximal stomach is likely neoplastic involvement. Subcarinal and right pulmonary hilar malignancy is narrowing bronchi and vascular structures. Abnormality in the right lower lobe is likely a combination of malignancy and postobstructive atelectasis and/or pneumonitis. A 4 mm noncalcified nodule in the right mid lung could be metastatic. Otherwise, unremarkable. Mild elevation of the right hemidiaphragm Bones/joints: Mild thoracic kyphosis with mild and moderate multilevel thoracic spondylosis. Otherwise, unremarkable. Soft tissues: Otherwise, unremarkable. CT/CT angio chest PE protcl [id number] IMPRESSION: 1. No pulmonary embolism. 2. Extensive thoracic malignancy. 3. Additional details as above.
--- NOTE | 2023-06-09 11:19 | PM.PN ---
Subjective Subjective: denies complaints Medications: Reviewed: Yes Vitals/I&O/Wt Last Vital Signs Temp 98.9 F 06/09/23 07:51 Pulse 75 06/09/23 08:00 Resp 16 06/09/23 08:00 BP 102/64 06/09/23 07:51 Pulse Ox 94 06/09/23 08:00 O2 Del Method Nasal Cannula 06/09/23 08:00 O2 Flow Rate 2 06/09/23 08:00 06/08/23 06/09/23 06/09/23 22:59 06:59 14:59 Intake Total 1736 / 2096 1046.512 / 3142.512 368.292 / 368.292 Output Total 300 / 300 650 / 950 250 / 250 Balance 1436 / 1796 396.512 / 2192.512 118.292 / 118.292 Weight last 48 hrs Weight 75.75 kg Physical Exam Narrative: AWAKE , ALERT HEENT S1S2 RRR PER REPORT LUNGS CLEAR PER REPORT NO EDEMA Data 06/09/23 03:18 06/09/23 03:18 A&P Assessment and plan (1) Acute hyponatremia: Plan 1. Hyponatremia: Hypovolemic, suspect patient has underlying SIADH component as well. Agree with stopping IV fluids and started fluid restriction and salt tablets, added IV albumin. Follow-up on urine osmolality.Na 127 today 2. History of esophageal cancer 3. Rapid A-fib, rate controlled now 4. History of hypertension 5.DVT right upper extremity Patient evaluated using audiovisual cart. Time spent 40 minutes Attestations Medical Necessity Statement*: per medicine team Coding Level of Care Code Acute Code for Chg Fwd Diagnoses Acute hyponatremia E87.1
--- NOTE | 2023-06-09 11:26 | PC.NURSE ---
Instructed pt to keep right hand and arm elevated with pillows to reduce swelling. Instructed pt and the order for strict fluid rectriction of 1500 ml/24 hrs. they both verbalizes understanding.
[2023-06-09] MEDS: dilTIAZem 30 mg Tablet PO ×2 (11:58→17:09)
[2023-06-09] MEDS: iohexol 350 mg/mL 500 mL Btl (per mL) IV (15:52)
[2023-06-09] MEDS: atorvastatin 40 mg Tablet PO (17:10)
--- NOTE | 2023-06-09 17:39 | P.DS_ITS ---
Discharge Providers Date of Admission: 06/07/23 20:40 Date of Discharge: June 09, 2023 Attending Provider at Admission: Ivania Mcknight MD Attending Provider at Discharge: Wesley Chavez MD Primary Care Provider: Vineet Saucedo MD Diagnoses at Discharge Discharge Diagnosis (1) Acute hyponatremia: Status: Acute (2) History of CVA (cerebrovascular accident): Status: Acute Permanent problem details: Follows with Dr Osuna - 04/27/2016 (3) Atrial fibrillation with rapid ventricular response: Status: Acute (4) Ventricular arrhythmia: Status: Acute (5) Deep vein thrombosis (DVT) of right upper extremity: Status: Acute (6) Stage IV malignant neoplasm of esophagus: Status: Acute Reason for Visit Reason for Visit: A-Fib Convulsions Hospital Course Hospital Course This note has been taken from cardiac consultation note Davidson Watts is a 72 year old male with a history of hypertension, diabetes, dyslipidemia, SVT, nonsustained ventricular tachycardia,? is presenting with c omplaints of dizziness/near syncope, off and on for the last 5 months or so.? He had a prolonged episode of dizziness yesterday evening lasting for several hours.? He was brought to the emergency room and was found to be in a narrow complex tachycardia with a heart rate in the 200 range.? He is admitted to the hospital for further evaluation and management. This patient is recently diagnosed with oral cancer and is on chemo and radiation.? Yesterday he had a radiation treatment and was returning home.? He started having some shortness of breath and dizziness.? The dizzy spells started getting worse.? He also had some palpitations.? For these complaints, he was brought to the emergency room . Patient was found to be hyponatremic.? His EKG showed? atrial fibrillation? with rapid ventricular rate of 185 bpm.? Occasional PVCs.? He was started on IV Cardizem.? He spontaneously converted to sinus rhythm.? He was given a dose of Cardizem 60 mg p.o. since then.? Early in morning around 3:00, he had a short episode of atrial fibrillation with rapid ventricular rate.? Since the hospital admission, the patient has no recurrence of dizziness or near syncope.? He had no chest pain He has a history of CVA and was found to have a chronically occluded left ICA.? In March of this year, he was diagnosed with? DVT of the right upper extremity.? He was placed on Eliquis. Denies any chest pain or chest tightness.? He had 2 Myocardial perfusion imagings in the past, the most recent one was in August of this year.? These were unremarkable, low probability for coronary ischemia. Patient has a remote history of smoking abuse.? He has been chewing tobacco up until 15 years ago. His brother had a myocardial infarction in his 50s.? Father had myocardial infarction In his 70s.? No other relevant family history Hospital course Patient was put on amiodarone p.o. regimen because he was in sinus rhythm with low blood pressure by the shipping track supervisor Dr. Alcocer for A-fib RVR however overnight patient went into paroxysmal A-fib RVR again and required Cardizem drip, we were able to transition Cardizem drip and start p.o. Cardizem, patient remained in sinus rhythm, echo showed preserved ejection fraction with biatrial dilation, CTA chest did not show PE, he does have esophageal cancer with mets to spine with extensive intrathoracic malignancy burden, has oncologist in [place]. 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, he was put on fluid restriction salt tablets urea tablets were added he is being discharged on 4127 patient has chemotherapy appointment on Sunday at [place] I will discharge him today with salt tablets and urea tablets with BMP prescription to check sodium level within 2 to 3 days, daughter has been updated Physical Exam Narrative: S1, S2 sinus rhythm Euvolemic Abdomen soft Pleasant cooperative Currently on room air GCS 15 hoarseness of voice Discharge Data Studies Completed and Pending Completed Studies During Hospitalization Category Date Time Status CTA chest [CT angio chest PE protcl [id number]] Routine Cat Scan 06/09/23 11:16 Completed XR chest 1V portable [id number] Stat Exams 06/07/23 19:10 Completed CV carotid duplex BI* [id number] Routine Ultrasound 06/08/23 10:09 Completed CV. echo complete* [id number] Routine Ultrasound 06/08/23 09:10 Completed Pending at discharge Category Date Time Status CA echo doppler complete Routine Exams 06/08/23 05:48 Stop Req Basic Metabolic Panel AM LABS Lab 06/10/23 04:00 Ordered Complete Blood Count w/Auto AM LABS Lab 06/10/23 04:00 Ordered Osmolality Serum Routine Lab 06/08/23 04:05 Received Osmolality Urine Routine Lab 06/08/23 13:16 Received Radiology Impressions Chest X-Ray 06/07/23 19:10 IMPRESSION: 1. Subtle opacities in the right lung base. 2. Esophageal stent redemonstrated and similar in position. Chest CTA 06/09/23 11:16 IMPRESSION: 1. No pulmonary embolism. 2. Extensive thoracic malignancy. 3. Additional details as above. Laboratory Results WBC 3.16 10^3/uL (3.29-11.43) L 06/09/23 03:18 RBC 2.93 10^6/uL (3.85-5.65) L 06/09/23 03:18 Hgb 8.90 g/dL (11.27-16.99) L 06/09/23 03:18 Hct 26.4 % (37-53) L 06/09/23 03:18 MCV 90.1 fl (82-101) 06/09/23 03:18 MCH 30.4 pg (27-33) 06/09/23 03:18 MCHC 33.7 g/dL (30-55) 06/09/23 03:18 RDW 13.9 % (12.1-15.1) 06/09/23 03:18 Plt Count 213 10^3/cmm (157-399) 06/09/23 03:18 MPV 10.3 fL (7.4-10.4) 06/09/23 03:18 Neut % (Auto) 81.7 % 06/09/23 03:18 Lymph % (Auto) 3.2 % 06/09/23 03:18 [place] % (Auto) 13.6 % 06/09/23 03:18 Eos % (Auto) 0.6 % 06/09/23 03:18 Baso % (Auto) 0.3 % 06/09/23 03:18 Neut # (Auto) 2.58 10^3/uL (1.8-7.7) 06/09/23 03:18 Lymph # (Auto) 0.1 10^3/uL (0.8-4.8) L 06/09/23 03:18 [place] # (Auto) 0.4 10^3/uL (0.2-0.9) 06/09/23 03:18 Eos # (Auto) 0.0 10^3/uL (0.0-0.8) 06/09/23 03:18 Baso # (Auto) 0.0 10^3/uL (0.0-0.1) 06/09/23 03:18 Nucleated RBC % (auto) 0 % 06/09/23 03:18 Nucleated RBCs # 0.0 /100WBC 06/09/23 03:18 PT 13.80 SECONDS (12.1-14.9) 06/07/23 19:24 INR 1.02 (0.8-1.2) 06/07/23 19:24 Sodium 127 mmol/L (136-145) L 06/09/23 03:18 Potassium 3.7 mmol/L (3.5-5.1) 06/09/23 03:18 Chloride 92 mmol/L (98-107) L 06/09/23 03:18 Carbon Dioxide 25 mmol/L (22-29) 06/09/23 03:18 Anion Gap 13.7 (5-19) 06/09/23 03:18 BUN 8 mg/dL (8-23) 06/09/23 03:18 Creatinine 0.5 mg/dL (0.7-1.2) L 06/09/23 03:18 GFR Calculation Not Reportable 06/09/23 03:18 Glucose 111 mg/dL (65-115) 06/09/23 03:18 Calculated Osmolality 263 mOsm/kg (285-295) L 06/09/23 03:18 Uric Acid 2.3 mg/dL (3.4-7.0) L 06/08/23 04:05 Calcium 8.3 mg/dL (8.5-10.5) L 06/09/23 03:18 Magnesium 1.9 mg/dL (1.7-2.3) 06/09/23 03:18 Total Bilirubin 0.8 mg/dL (0.15-1.2) 06/08/23 04:05 AST 14 U/L (0-40) 06/08/23 04:05 ALT 23 U/L (0-41) 06/08/23 04:05 Alkaline Phosphatase 190 U/L (40-130) H 06/08/23 04:05 Troponin T Baseline 13 ng/L (0-15) 06/07/23 19:24 Troponin T 120 Minute 12.69 ng/L (0-15) 06/07/23 21:35 Delta Troponin T -0.31 ABS# (0-10) L 06/07/23 21:35 Troponin T Hi Sens 6Hr 14.06 ng/L (0-15) 06/08/23 01:13 Troponin T Hi Sens 6Hr Delta 1.06 ng/L (0-12) 06/08/23 01:13 NT-Pro-B Natriuret Pep 412 pg/mL (0-125) H 06/08/23 04:05 Total Protein 5.4 g/dL (6.6-8.7) L 06/08/23 04:05 Albumin 2.7 g/dL (3.5-5.2) L 06/08/23 04:05 Globulin 2.7 g/dL (1.3-4.6) 06/08/23 04:05 TSH 0.44 uIU/mL (0.27-4.20) 06/08/23 04:05 Urine Color Yellow (Yellow) 06/07/23 23:10 Urine Appearance Clear (CLEAR) 06/07/23 23:10 Urine pH 5 (5-7) 06/07/23 23:10 Ur Specific [place] 1.025 (1.005-1.030) 06/07/23 23:10 Urine Protein Neg (Negative) 06/07/23 23:10 Urine Glucose (UA) Norm (Normal) 06/07/23 23:10 Urine Ketones Negative (Negative) 06/07/23 23:10 Urine Blood Neg (Negative) 06/07/23 23:10 Urine Nitrate Negative (Negative) 06/07/23 23:10 Urine Bilirubin Neg (Negative) 06/07/23 23:10 Urine Urobilinogen Neg mg/dL (Negative) 06/07/23 23:10 Ur Leukocyte Esterase Negative (Negative) 06/07/23 23:10 Ur Random Sodium 99 mmol/L 06/08/23 13:16 Vitals Last Vital Signs Temp 99.6 F 06/09/23 16:00 Pulse 85 06/09/23 16:00 Resp 21 H 06/09/23 16:00 BP 133/95 06/09/23 16:00 Pulse Ox 94 06/09/23 16:00 O2 Del Method Room Air 06/09/23 12:00 O2 Flow Rate 2 06/09/23 08:00 Discharge Plan Discharge Patient Disposition: Home Condition: Stable Prescriptions: New Pacerone 200 mg Tablet 400 mg PO BID Qty: 120 1RF Rx Instructions: 400 mg twice daily for 7 days then 200 mg for 7 days then 200 mg daily magnesium oxide 400 mg (241.3 mg magnesium) Tablet 400 mg PO BID Qty: 10 0RF sodium chloride 1,000 mg Tablet,Soluble 1,000 mg PO BID Qty: 10 0RF Ure-Na 15 gram Powder In Packet 10 g PO BID Qty: 10 0RF Cardizem LA 240 mg tablet extended release 24 hr 240 mg PO DAILY Qty: 60 0RF Continued omeprazole 40 mg capsule,delayed release(DR/EC) 1 cap PO QAM clopidogrel 75 mg tablet 75 mg PO QPM glucos sul 5KNm-kig-xpkiw-C-Mn 550-30-1 mg capsule 1 cap PO BID latanoprost 0.005 % drops 1 drp ophthalmic (eye) QPM Eliquis 5 mg tablet 5 mg PO BID Qty: 60 3RF hydrocodone-acetaminophen 5-325 mg tablet 1 tab PO TID PRN (Reason: Pain) prochlorperazine maleate 10 mg tablet See Rx Instructions .ROUTE .COMPLEX Rx Instructions: TAKE 1 TABLET BY MOUTH EVERY 6 TO 8 HOURS NEEDED FOR BREAKTHROUGH NAUSEA ondansetron 8 mg tablet,disintegrating See Rx Instructions .ROUTE .COMPLEX Rx Instructions: DISSOLVE 1 TABLET ON TONGUE THREE TIMES DAILY FOR 2 DAYS FOLLOWING CHEMOTHERAPY , START TAKING THE NIGHT OF TREATMENT, THEN MAY TAKE 1 TABLET EVERY 8 HOURS NEEDED FOR NAUSEA lidocaine-prilocaine 2.5-2.5 % cream See Rx Instructions .ROUTE .COMPLEX Rx Instructions: Apply to port site 45 minutes to 1 hour prior to port access docusate sodium 100 mg capsule 100 mg PO BID atorvastatin 40 mg tablet 40 mg PO QPM methylprednisolone [Medrol (Brijesh)] 4 mg tablets,dose pack See Rx Instructions .ROUTE .COMPLEX Qty: 21 0RF Rx Instructions: orally per package directions albuterol sulfate 90 mcg/actuation HFA aerosol inhaler 2 inh INHALATION Q4H PRN (Reason: shortness of breath or wheezing) Qty: 6.7 1RF Discontinued metoprolol tartrate 25 mg tablet 25 mg PO BID Qty: 180 2RF valsartan 80 mg tablet 80 mg PO DAILY Qty: 90 3RF Discharge Orders: Discharge Order (Routine); Ordered 06/10/23 Ordered By: Wesley Chavez Other Ambulatory Orders: Basic Metabolic Panel (Routine) Timeframe: 3 Weeks Facility: [facility] - Location: Lab - Main Lab Ordered By: Wesley Chavez Referrals: Vineet Saucedo MD [Primary Care Provider] - 3 weeks (We have notified your physician's clinic of the need for a follow-up appointment to be scheduled. If you have not heard from them within the next 2 business days, please call them directly. You may also reach out to our manager concrete at [phone] and she can assist you.) Discharge Diet: Advance as tolerated Discharge Activity: Increase activity as tolerated Patient Instructions: Diltiazem (By mouth) (Cardizem, Cardizem CD, Cardizem LA, Cardizem SR), Amiodarone (By mouth) (Cordarone, Pacerone), Magnesium Oxide (By mouth) (Mag-Ox 400, [employer] [facility] [employer]..., Sodium Chloride (By mouth), A-fib (Atrial Fibrillation) (DC), Deep Vein Thrombosis (DC), Oropharyngeal Cancer (DC), Opioid Safety Discharge Attestations Time Spent in Discharge Care*: greater than 30 min Quality Metrics Clinical Quality Measures [ No reported AMI, CVA or VTE this stay] Coding Level of Care Code Acute Code for Chg Fwd Diagnoses Acute hyponatremia E87.1 History of CVA (cerebrovascular accident) Z86.73 Atrial fibrillation with rapid ventricular response I48.91 Ventricular arrhythmia I49.9 Deep vein thrombosis (DVT) of right upper extremity I82.621 Stage IV malignant neoplasm of esophagus C15.9
[2023-06-09] MEDS: dilTIAZem 30 mg Tablet 60 MG PO (21:31)
[2023-06-10] VITALS (97 sets, daily range): BP systolic 135–139; BP diastolic 69–75; PULSE 65–116; RESP 6–72; TEMP 36.9–37.7; O2SAT 87–98
[2023-06-10] MEDS: famotidine 20 mg/2 mL INJ IVP ×2 (01:23→12:55)
[2023-06-10] MEDS: albumin 25 G/100 ML BAG 60 G IV ×2 (03:49→12:55)
[2023-06-10 05:21] LABS: Basophils % 0.5 %; Eosinophils % 0.5 %; Hematocrit 23.8 % (37-53); Lymphocytes # 0.1 10^3/uL (0.8-4.8); Lymphocytes % 2.9 %; Mean Corpuscular HGB Conc 34.5 g/dL (30-55); Mean Corpuscular Hemoglobin 31.2 pg (27-33); Mean Corpuscular Volume 90.5 fl (82-101); Mean Platelet Volume 10.4 fL (7.4-10.4); Monocytes # 0.7 10^3/uL (0.2-0.9); Monocytes % 15.3 %; Neutrophils # 3.53 10^3/uL (1.8-7.7); Neutrophils % 79.7 %; Nucleated Red Blood Cells % 0 %; Platelet Count 219 10^3/cmm (157-399); Red Blood Count 2.63 10^6/uL (3.85-5.65); Red Cell Distribution Width 14.1 % (12.1-15.1); White Blood Count 4.43 10^3/uL (3.29-11.43)
[2023-06-10] MEDS: dilTIAZem 30 mg Tablet 60 MG PO ×2 (05:27→14:44)
[2023-06-10 05:34] LABS: Anion Gap 10.7 (5-19); Blood Urea Nitrogen 8 mg/dL (8-23); Calcium 8.9 mg/dL (8.5-10.5); Carbon Dioxide 26 mmol/L (22-29); Chloride 89 mmol/L (98-107); Glucose 100 mg/dL (65-115); Osmolality Calculated 252 mOsm/kg (285-295); Potassium 3.7 mmol/L (3.5-5.1); Sodium 122 mmol/L (136-145)
[2023-06-10] MEDS: sodium chloride 1 gm Tablet PO ×2 (09:17→14:44)
[2023-06-10] MEDS: guaiFENesin 600 mg Tablet PO (09:17)
[2023-06-10] MEDS: clopidogrel 75 mg Tablet PO (09:18)
[2023-06-10] MEDS: apixaban 5 mg Tablet PO (09:18)
[2023-06-10] MEDS: urea 15 gm Powder 10 GM PO (09:18)
[2023-06-10] MEDS: amiodarone 200 mg Tablet 400 MG PO (09:18)
[2023-06-10] MEDS: magnesium oxide 400 mg tablet PO (09:18)
[2023-06-10] MEDS: sodium chloride 0.9% 1,000 ML 75 ML IV (09:19)
--- NOTE | 2023-06-10 11:13 | P.PN_ITS ---
Subjective Subjective: denies any complaints Medications: Reviewed: Yes Vitals/I&O/Wt Last Vital Signs Temp 98.7 F 06/10/23 08:20 Pulse 79 06/10/23 08:20 Resp 18 06/10/23 08:20 BP 135/69 06/10/23 08:20 Pulse Ox 96 06/10/23 08:20 O2 Del Method Room Air 06/10/23 07:33 O2 Flow Rate 2 06/10/23 03:51 06/09/23 06/10/23 06/10/23 22:59 06:59 14:59 Intake Total 1075.988 / 2810.280 550 / 3360.280 Output Total 300 / 750 Balance 1075.988 / 2360.280 250 / 2610.280 Physical Exam Narrative: AWAKE , ALERT HEENT S1S2 RRR PER REPORT LUNGS CLEAR PER REPORT NO EDEMA Data 06/10/23 04:44 06/10/23 04:44 A&P Assessment and plan (1) Acute hyponatremia: Plan 1. Hyponatremia: suspect patient has underlying SIADH component as well. c/w fluid restriction and salt tablets, added IV albumin ,added urea tabs . Follow- up on urine osmolality.Na dropped to 122 today , give gentle IVFs 2. History of esophageal cancer 3. Rapid A-fib, rate controlled now 4. History of hypertension 5.DVT right upper extremity Patient evaluated using audiovisual cart. Time spent 20 minutes Attestations Medical Necessity Statement*: [facility] Coding Level of Care Code Acute Code for Chg Fwd Diagnoses Acute hyponatremia E87.1
--- NOTE | 2023-06-10 14:42 | PM.PN ---
Subjective Subjective: Patient does not seems to be in atrial fibrillation with a controlled rate. Intermittently he gets into sinus rhythm. PVCs also were noted on the monitor. No chest pain or unusual shortness of breath. No Ts Amaurosis. No other specific complaints Medications: Medication Review Details: Current Medications Hydrocodone Bitart/Acetaminophen (Hydrocodone-Acetaminophen 5-325 Mg Tablet) 1 tab PO TID PRN PRN Reason: Pain Albuterol/Ipratropium (Ipratropium-Albuterol 3 Ml Neb) 3 ml INHALATION BID PRN PRN Reason: SHORTNESS OF BREATH Amiodarone HCl (Amiodarone 200 Mg Tablet) 400 mg PO BID [facility] Last Admin: 06/10/23 09:18 Dose: 400 mg Apixaban (Apixaban 5 Mg Tablet) 5 mg PO BID [facility] Last Admin: 06/10/23 09:18 Dose: 5 mg Atorvastatin Calcium (Atorvastatin 40 Mg Tablet) 40 mg PO QPM [facility] Last Admin: 06/09/23 17:10 Dose: 40 mg Clopidogrel Bisulfate (Clopidogrel 75 Mg Tablet) 75 mg PO DAILY [facility] Last Admin: 06/10/23 09:18 Dose: 75 mg Diltiazem HCl (Diltiazem 30 Mg Tablet) 60 mg PO Q8H [facility] Last Admin: 06/10/23 05:27 Dose: 60 mg Famotidine (Famotidine 20 Mg/2 Ml Inj) 20 mg IVP Q12H [facility] Last Admin: 06/10/23 12:55 Dose: 20 mg Guaifenesin (Guaifenesin 600 Mg Tablet) 600 mg PO BID [facility] Last Admin: 06/10/23 09:17 Dose: 600 mg Albumin Human (Albumin) 25 g in 100 mls @ 60 mls/hr IV Q8H [facility] Last Admin: 06/10/23 12:55 Dose: 60 mls/hr Diltiazem HCl 50 mg/ Sodium (Chloride) 50 mls @ 0 mls/hr IV .Q0M [facility]; Protocol Last Titration: 06/09/23 14:06 Dose: Infused Sodium Chloride (Sodium Chloride 0.9%) 1,000 mls @ 75 mls/hr IV .[id number] [facility] Stop: 06/11/23 23:59 Last Admin: 06/10/23 09:19 Dose: 75 mls/hr Latanoprost (Latanoprost 0.005% Op Soln 2.5 Ml Btl) 1 drop OPHTHALMIC QPM [facility] Last Admin: 06/09/23 19:57 Dose: Not Given Magnesium Oxide (Magnesium Oxide 400 Mg Tablet) 400 mg PO BID [facility] Last Admin: 06/10/23 09:18 Dose: 400 mg Ondansetron HCl (Ondansetron 2 Mg/Ml Sdv 2 Ml) 4 mg IVP Q6H PRN PRN Reason: NAUSEA AND VOMITING Sodium Chloride (Sodium Chloride 1 Gm Tablet) 1 gm PO TID [facility] Last Admin: 06/10/23 09:17 Dose: 1 gm Urea (Urea 15 Gm Powder) 10 gm PO BID [facility] Last Admin: 06/10/23 09:18 Dose: 10 gm Vitals/I&O/Wt Last Vital Signs Temp 99.8 F H 06/10/23 13:25 Pulse 94 06/10/23 13:25 Resp 17 06/10/23 13:25 BP 139/72 06/10/23 13:25 Pulse Ox 93 06/10/23 13:25 O2 Del Method Room Air 06/10/23 07:33 O2 Flow Rate 2 06/10/23 03:51 06/09/23 06/10/23 06/10/23 22:59 06:59 14:59 Intake Total 1075.988 / 2810.280 550 / 3360.280 Output Total 300 / 750 Balance 1075.988 / 2360.280 250 / 2610.280 Physical Exam Narrative: GENERAL: The patient is alert and oriented times three. Not in any acute distress. [] HEENT: No significant pallor, icterus or lymphadenopathy.Oral cavity: There are no mucous membrane lesions. NECK: Trachea appears to be central. No masses noted. No JVD or thyromegaly appreciated. RESPIRATORY: Chest is symmetrical. No intercostals muscle retraction or any accessory muscle activation. There is no chest wall tenderness. Breath sounds are heard bilaterally. No rales or rhonchi heard. No evidence of any consolidation. BREASTS: Deferred. HEART: The heart sounds are normal. No S3 or S4. Short systolic murmur in the left sternal border No pericardial rub ABDOMEN: No vessel pulsations or distention. No tenderness. No organomegaly appreciated. Bowel sounds are normally heard. : Deferred. RECTAL: Deferred. LYMPHATIC: No lymphadenopathy noted in the neck. EXTREMITIES: No edema or cyanosis. No clubbing. MUSCULOSKELETAL: No acute joint deformities or swelling SKIN: There are no significant rashes or ecchymosis NEUROPSYCHIATRIC: The patient is alert and oriented x3. Appears to be in a good mood. No tremors or rigidity noted. Data 06/10/23 04:44 06/10/23 15:31 Other Labs: Laboratory Last Values WBC 4.43 10^3/uL (3.29-11.43) 06/10/23 04:44 RBC 2.63 10^6/uL (3.85-5.65) L 06/10/23 04:44 Hgb 8.20 g/dL (11.27-16.99) L 06/10/23 04:44 Hct 23.8 % (37-53) L 06/10/23 04:44 MCV 90.5 fl (82-101) 06/10/23 04:44 MCH 31.2 pg (27-33) 06/10/23 04:44 MCHC 34.5 g/dL (30-55) 06/10/23 04:44 RDW 14.1 % (12.1-15.1) 06/10/23 04:44 Plt Count 219 10^3/cmm (157-399) 06/10/23 04:44 MPV 10.4 fL (7.4-10.4) 06/10/23 04:44 Neut % (Auto) 79.7 % 06/10/23 04:44 Lymph % (Auto) 2.9 % 06/10/23 04:44 [place] % (Auto) 15.3 % 06/10/23 04:44 Eos % (Auto) 0.5 % 06/10/23 04:44 Baso % (Auto) 0.5 % 06/10/23 04:44 Neut # (Auto) 3.53 10^3/uL (1.8-7.7) 06/10/23 04:44 Lymph # (Auto) 0.1 10^3/uL (0.8-4.8) L 06/10/23 04:44 [place] # (Auto) 0.7 10^3/uL (0.2-0.9) 06/10/23 04:44 Eos # (Auto) 0.0 10^3/uL (0.0-0.8) 06/10/23 04:44 Baso # (Auto) 0.0 10^3/uL (0.0-0.1) 06/10/23 04:44 Nucleated RBC % (auto) 0 % 06/10/23 04:44 Nucleated RBCs # 0.0 /100WBC 06/10/23 04:44 PT 13.80 SECONDS (12.1-14.9) 06/07/23 19:24 INR 1.02 (0.8-1.2) 06/07/23 19:24 Sodium 122 mmol/L (136-145) L 06/10/23 04:44 Potassium 3.7 mmol/L (3.5-5.1) 06/10/23 04:44 Chloride 89 mmol/L (98-107) L 06/10/23 04:44 Carbon Dioxide 26 mmol/L (22-29) 06/10/23 04:44 Anion Gap 10.7 (5-19) 06/10/23 04:44 BUN 8 mg/dL (8-23) 06/10/23 04:44 Creatinine 0.5 mg/dL (0.7-1.2) L 06/10/23 04:44 GFR Calculation Not Reportable 06/10/23 04:44 Glucose 100 mg/dL (65-115) 06/10/23 04:44 Calculated Osmolality 252 mOsm/kg (285-295) L 06/10/23 04:44 Uric Acid 2.3 mg/dL (3.4-7.0) L 06/08/23 04:05 Calcium 8.9 mg/dL (8.5-10.5) 06/10/23 04:44 Magnesium 1.9 mg/dL (1.7-2.3) 06/09/23 03:18 Total Bilirubin 0.8 mg/dL (0.15-1.2) 06/08/23 04:05 AST 14 U/L (0-40) 06/08/23 04:05 ALT 23 U/L (0-41) 06/08/23 04:05 Alkaline Phosphatase 190 U/L (40-130) H 06/08/23 04:05 Troponin T Baseline 13 ng/L (0-15) 06/07/23 19:24 Troponin T 120 Minute 12.69 ng/L (0-15) 06/07/23 21:35 Delta Troponin T -0.31 ABS# (0-10) L 06/07/23 21:35 Troponin T Hi Sens 6Hr 14.06 ng/L (0-15) 06/08/23 01:13 Troponin T Hi Sens 6Hr Delta 1.06 ng/L (0-12) 06/08/23 01:13 NT-Pro-B Natriuret Pep 412 pg/mL (0-125) H 06/08/23 04:05 Total Protein 5.4 g/dL (6.6-8.7) L 06/08/23 04:05 Albumin 2.7 g/dL (3.5-5.2) L 06/08/23 04:05 Globulin 2.7 g/dL (1.3-4.6) 06/08/23 04:05 TSH 0.44 uIU/mL (0.27-4.20) 06/08/23 04:05 Urine Color Yellow (Yellow) 06/07/23 23:10 Urine Appearance Clear (CLEAR) 06/07/23 23:10 Urine pH 5 (5-7) 06/07/23 23:10 Ur Specific [place] 1.025 (1.005-1.030) 06/07/23 23:10 Urine Protein Neg (Negative) 06/07/23 23:10 Urine Glucose (UA) Norm (Normal) 06/07/23 23:10 Urine Ketones Negative (Negative) 06/07/23 23:10 Urine Blood Neg (Negative) 06/07/23 23:10 Urine Nitrate Negative (Negative) 06/07/23 23:10 Urine Bilirubin Neg (Negative) 06/07/23 23:10 Urine Urobilinogen Neg mg/dL (Negative) 06/07/23 23:10 Ur Leukocyte Esterase Negative (Negative) 06/07/23 23:10 Ur Random Sodium 99 mmol/L 06/08/23 13:16 A&P Assessment and plan (1) Atrial fibrillation with rapid ventricular response: Patient is an atrial fibrillation with a controlled ventricular response rate.Occasional PVCs were also noted on the monitor.. For the time being, he may continue on the current medications. Continue on the oral anticoagulation with (2) Ventricular arrhythmia: Patient has a history of nonsustained ventricular tachycardia / frequent PVCs. Amiodarone may help the ventricular arrhythmia as well. I also may start him on a Mag-Tab SR 84 mg p.o. twice daily. The arrhythmia seems to be under control. No new arrhythmias are on the monitor with (3) Deep vein thrombosis (DVT) of right upper extremity: Patient is on Eliquis. This may be continued. This could be related to the esophageal cancer. The right upper extremity swelling seems to be slowly getting better (4) History of CVA (cerebrovascular accident): Has not had a recurrence. He is known to have chronic occlusion of the left ICA. The right ICA has less than 50% stenosis. Currently has no residual motor weakness. May continue on the current measures (5) Stage IV malignant neoplasm of esophagus: Patient is scheduled for chemotherapy tomorrow . If the hyponatremia has improved the patient might be able to go-defer to the hospitalist service Plan Other problems are Hyponatremia, being corrected Anemia- the hemoglobin level is slowly going down. History of hypertension, currently normotensive History of type 2 diabetes History of dyslipidemia Patient may continue on the current treatment. If he continues to remain stable, may be discharged home from a cardiac standpoint. If he has any significant recurrence of the palpitations, need to consider an event monitor. Attestations Medical Necessity Statement*: Patient requires continued hospital stay for close monitoring and further management Coding Level of Care Code 19841 Diagnoses Atrial fibrillation with rapid ventricular response I48.91 Ventricular arrhythmia I49.9 Deep vein thrombosis (DVT) of right upper extremity I82.621 History of CVA (cerebrovascular accident) Z86.73 Stage IV malignant neoplasm of esophagus C15.9
[2023-06-10 16:03] LABS: Sodium 128 mmol/L (136-145)
--- NOTE | 2023-06-10 17:19 | PC.NURSE ---
Discharge Note Patient discharged to [home] via [w/c to POV] accompanied by [spouse]. Discharge instructions reviewed with patient and/or bank representative. Mobile pharmacy medications and/or prescriptions provided. Belongings/home medications returned.
--- NOTE | 2023-06-10 17:49 | P.DS_ITS ---
Discharge Providers Date of Admission: 06/09/23 08:10 Date of Discharge: June 10, 2023 Attending Provider at Admission: Ivania Mcknight MD Attending Provider at Discharge: Wesley Chavez MD Primary Care Provider: Vineet Saucedo MD Diagnoses at Discharge Discharge Diagnosis (1) Acute hyponatremia: Status: Acute (2) History of CVA (cerebrovascular accident): Status: Acute Permanent problem details: Follows with Dr Osuna - 04/27/2016 (3) Atrial fibrillation with rapid ventricular response: Status: Acute (4) Ventricular arrhythmia: Status: Acute (5) Deep vein thrombosis (DVT) of right upper extremity: Status: Acute (6) Stage IV malignant neoplasm of esophagus: Status: Acute Reason for Visit Reason for Visit: A-Fib Convulsions Hospital Course Hospital Course This note has been taken from cardiac consultation note Davidson Watts is a 72 year old male with a history of hypertension, diabetes, dyslipidemia, SVT, nonsustained ventricular tachycardia,? is presenting with c omplaints of dizziness/near syncope, off and on for the last 5 months or so.? He had a prolonged episode of dizziness yesterday evening lasting for several hours.? He was brought to the emergency room and was found to be in a narrow complex tachycardia with a heart rate in the 200 range.? He is admitted to the hospital for further evaluation and management. This patient is recently diagnosed with oral cancer and is on chemo and radiation.? Yesterday he had a radiation treatment and was returning home.? He started having some shortness of breath and dizziness.? The dizzy spells started getting worse.? He also had some palpitations.? For these complaints, he was brought to the emergency room . Patient was found to be hyponatremic.? His EKG showed? atrial fibrillation? with rapid ventricular rate of 185 bpm.? Occasional PVCs.? He was started on IV Cardizem.? He spontaneously converted to sinus rhythm.? He was given a dose of Cardizem 60 mg p.o. since then.? Early in morning around 3:00, he had a short episode of atrial fibrillation with rapid ventricular rate.? Since the hospital admission, the patient has no recurrence of dizziness or near syncope.? He had no chest pain He has a history of CVA and was found to have a chronically occluded left ICA.? In March of this year, he was diagnosed with? DVT of the right upper extremity.? He was placed on Eliquis. Denies any chest pain or chest tightness.? He had 2 Myocardial perfusion imagings in the past, the most recent one was in August of this year.? These were unremarkable, low probability for coronary ischemia. Patient has a remote history of smoking abuse.? He has been chewing tobacco up until 15 years ago. His brother had a myocardial infarction in his 50s.? Father had myocardial infarction In his 70s.? No other relevant family history Hospital course Patient was put on amiodarone p.o. regimen because he was in sinus rhythm with low blood pressure by the pool player Dr. Alcocer for A-fib RVR however overnight patient went into paroxysmal A-fib RVR again and required Cardizem drip, we were able to transition Cardizem drip and start p.o. Cardizem, patient remained in sinus rhythm, echo showed preserved ejection fraction with biatrial dilation, CTA chest did not show PE, he does have esophageal cancer with mets to spine with extensive intrathoracic malignancy burden, has oncologist in [place]. 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, he was put on fluid restriction salt tablets urea tablets were added he is being discharged on 4127 patient has chemotherapy appointment on Sunday at [place] I will discharge him today with salt tablets and urea tablets with BMP prescription to check sodium level within 2 to 3 days, daughter has been updated Discharge Data Studies Completed and Pending Completed Studies During Hospitalization Category Date Time Status CTA chest [CT angio chest PE protcl [id number]] Routine Cat Scan 06/09/23 11:16 Completed XR chest 1V portable [id number] Stat Exams 06/07/23 19:10 Completed CV carotid duplex BI* [id number] Routine Ultrasound 06/08/23 10:09 Completed CV. echo complete* [id number] Routine Ultrasound 06/08/23 09:10 Completed Pending at discharge Category Date Time Status CA echo doppler complete Routine Exams 06/08/23 05:48 Stop Req Osmolality Serum Routine Lab 06/08/23 04:05 Received Osmolality Urine Routine Lab 06/08/23 13:16 Received Radiology Impressions Chest X-Ray 06/07/23 19:10 IMPRESSION: 1. Subtle opacities in the right lung base. 2. Esophageal stent redemonstrated and similar in position. Chest CTA 06/09/23 11:16 IMPRESSION: 1. No pulmonary embolism. 2. Extensive thoracic malignancy. 3. Additional details as above. Laboratory Results WBC 4.43 10^3/uL (3.29-11.43) 06/10/23 04:44 RBC 2.63 10^6/uL (3.85-5.65) L 06/10/23 04:44 Hgb 8.20 g/dL (11.27-16.99) L 06/10/23 04:44 Hct 23.8 % (37-53) L 06/10/23 04:44 MCV 90.5 fl (82-101) 06/10/23 04:44 MCH 31.2 pg (27-33) 06/10/23 04:44 MCHC 34.5 g/dL (30-55) 06/10/23 04:44 RDW 14.1 % (12.1-15.1) 06/10/23 04:44 Plt Count 219 10^3/cmm (157-399) 06/10/23 04:44 MPV 10.4 fL (7.4-10.4) 06/10/23 04:44 Neut % (Auto) 79.7 % 06/10/23 04:44 Lymph % (Auto) 2.9 % 06/10/23 04:44 Harper % (Auto) 15.3 % 06/10/23 04:44 Eos % (Auto) 0.5 % 06/10/23 04:44 Baso % (Auto) 0.5 % 06/10/23 04:44 Neut # (Auto) 3.53 10^3/uL (1.8-7.7) 06/10/23 04:44 Lymph # (Auto) 0.1 10^3/uL (0.8-4.8) L 06/10/23 04:44 Harper # (Auto) 0.7 10^3/uL (0.2-0.9) 06/10/23 04:44 Eos # (Auto) 0.0 10^3/uL (0.0-0.8) 06/10/23 04:44 Baso # (Auto) 0.0 10^3/uL (0.0-0.1) 06/10/23 04:44 Nucleated RBC % (auto) 0 % 06/10/23 04:44 Nucleated RBCs # 0.0 /100WBC 06/10/23 04:44 PT 13.80 SECONDS (12.1-14.9) 06/07/23 19:24 INR 1.02 (0.8-1.2) 06/07/23 19:24 Sodium 128 mmol/L (136-145) L 06/10/23 15:31 Potassium 3.7 mmol/L (3.5-5.1) 06/10/23 04:44 Chloride 89 mmol/L (98-107) L 06/10/23 04:44 Carbon Dioxide 26 mmol/L (22-29) 06/10/23 04:44 Anion Gap 10.7 (5-19) 06/10/23 04:44 BUN 8 mg/dL (8-23) 06/10/23 04:44 Creatinine 0.5 mg/dL (0.7-1.2) L 06/10/23 04:44 GFR Calculation Not Reportable 06/10/23 04:44 Glucose 100 mg/dL (65-115) 06/10/23 04:44 Calculated Osmolality 252 mOsm/kg (285-295) L 06/10/23 04:44 Uric Acid 2.3 mg/dL (3.4-7.0) L 06/08/23 04:05 Calcium 8.9 mg/dL (8.5-10.5) 06/10/23 04:44 Magnesium 1.9 mg/dL (1.7-2.3) 06/09/23 03:18 Total Bilirubin 0.8 mg/dL (0.15-1.2) 06/08/23 04:05 AST 14 U/L (0-40) 06/08/23 04:05 ALT 23 U/L (0-41) 06/08/23 04:05 Alkaline Phosphatase 190 U/L (40-130) H 06/08/23 04:05 Troponin T Baseline 13 ng/L (0-15) 06/07/23 19:24 Troponin T 120 Minute 12.69 ng/L (0-15) 06/07/23 21:35 Delta Troponin T -0.31 ABS# (0-10) L 06/07/23 21:35 Troponin T Hi Sens 6Hr 14.06 ng/L (0-15) 06/08/23 01:13 Troponin T Hi Sens 6Hr Delta 1.06 ng/L (0-12) 06/08/23 01:13 NT-Pro-B Natriuret Pep 412 pg/mL (0-125) H 06/08/23 04:05 Total Protein 5.4 g/dL (6.6-8.7) L 06/08/23 04:05 Albumin 2.7 g/dL (3.5-5.2) L 06/08/23 04:05 Globulin 2.7 g/dL (1.3-4.6) 06/08/23 04:05 TSH 0.44 uIU/mL (0.27-4.20) 06/08/23 04:05 Urine Color Yellow (Yellow) 06/07/23 23:10 Urine Appearance Clear (CLEAR) 06/07/23 23:10 Urine pH 5 (5-7) 06/07/23 23:10 Ur Specific [place] 1.025 (1.005-1.030) 06/07/23 23:10 Urine Protein Neg (Negative) 06/07/23 23:10 Urine Glucose (UA) Norm (Normal) 06/07/23 23:10 Urine Ketones Negative (Negative) 06/07/23 23:10 Urine Blood Neg (Negative) 06/07/23 23:10 Urine Nitrate Negative (Negative) 06/07/23 23:10 Urine Bilirubin Neg (Negative) 06/07/23 23:10 Urine Urobilinogen Neg mg/dL (Negative) 06/07/23 23:10 Ur Leukocyte Esterase Negative (Negative) 06/07/23 23:10 Ur Random Sodium 99 mmol/L 06/08/23 13:16 Vitals Last Vital Signs Temp 99.8 F H 06/10/23 16:58 Pulse 94 06/10/23 16:58 Resp 17 06/10/23 16:58 BP 139/72 06/10/23 16:58 Pulse Ox 93 06/10/23 16:58 O2 Del Method Room Air 06/10/23 07:33 O2 Flow Rate 2 06/10/23 03:51 Discharge Plan Discharge Patient Disposition: Home Condition: Stable Prescriptions: New Pacerone 200 mg Tablet 400 mg PO BID Qty: 120 1RF Rx Instructions: 400 mg twice daily for 7 days then 200 mg for 7 days then 200 mg daily magnesium oxide 400 mg (241.3 mg magnesium) Tablet 400 mg PO BID Qty: 10 0RF sodium chloride 1,000 mg Tablet,Soluble 1,000 mg PO BID Qty: 10 0RF Ure-Na 15 gram Powder In Packet 10 g PO BID Qty: 10 0RF Cardizem LA 240 mg tablet extended release 24 hr 240 mg PO DAILY Qty: 60 0RF Continued omeprazole 40 mg capsule,delayed release(DR/EC) 1 cap PO QAM clopidogrel 75 mg tablet 75 mg PO QPM glucos sul [id number] 550-30-1 mg capsule 1 cap PO BID latanoprost 0.005 % drops 1 drp ophthalmic (eye) QPM Eliquis 5 mg tablet 5 mg PO BID Qty: 60 3RF hydrocodone-acetaminophen 5-325 mg tablet 1 tab PO TID PRN (Reason: Pain) prochlorperazine maleate 10 mg tablet See Rx Instructions .ROUTE .COMPLEX Rx Instructions: TAKE 1 TABLET BY MOUTH EVERY 6 TO 8 HOURS NEEDED FOR BREAKTHROUGH NAUSEA ondansetron 8 mg tablet,disintegrating See Rx Instructions .ROUTE .COMPLEX Rx Instructions: DISSOLVE 1 TABLET ON TONGUE THREE TIMES DAILY FOR 2 DAYS FOLLOWING CHEMOTHER APY , START TAKING THE NIGHT OF TREATMENT, THEN MAY TAKE 1 TABLET EVERY 8 HOURS NEEDED FOR NAUSEA lidocaine-prilocaine 2.5-2.5 % cream See Rx Instructions .ROUTE .COMPLEX Rx Instructions: Apply to port site 45 minutes to 1 hour prior to port access docusate sodium 100 mg capsule 100 mg PO BID atorvastatin 40 mg tablet 40 mg PO QPM methylprednisolone [Medrol (Brijesh)] 4 mg tablets,dose pack See Rx Instructions .ROUTE .COMPLEX Qty: 21 0RF Rx Instructions: orally per package directions albuterol sulfate 90 mcg/actuation HFA aerosol inhaler 2 inh INHALATION Q4H PRN (Reason: shortness of breath or wheezing) Qty: 6.7 1RF Discontinued metoprolol tartrate 25 mg tablet 25 mg PO BID Qty: 180 2RF valsartan 80 mg tablet 80 mg PO DAILY Qty: 90 3RF Discharge Orders: Discharge Order (Routine); Ordered 06/10/23 Ordered By: Wesley Chavez Other Ambulatory Orders: Basic Metabolic Panel (Routine) Timeframe: 3 Weeks Facility: [facility] - Location: Lab - Main Lab Ordered By: Wesley Chavez Referrals: Vineet Saucedo MD [Primary Care Provider] - 3 weeks (We have notified your physician's clinic of the need for a follow-up appointment to be scheduled. If you have not heard from them within the next 2 business days, please call them directly. You may also reach out to our frozen food department manager at and she can assist you.) Discharge Diet: Advance as tolerated Discharge Activity: Increase activity as tolerated Patient Instructions: Diltiazem (By mouth) (Cardizem, Cardizem CD, Cardizem LA, Cardizem SR), Amiodarone (By mouth) (Cordarone, Pacerone), Magnesium Oxide (By mouth) (Mag-Ox 400, LE TOTE [facility]..., Sodium Chloride (By mouth), A-fib (Atrial Fibrillation) (DC), Deep Vein Thrombosis (DC), Oropharyngeal Cancer (DC), Opioid Safety Discharge Attestations Time Spent in Discharge Care*: greater than 30 min Quality Metrics Clinical Quality Measures [ No reported AMI, CVA or VTE this stay] Coding Level of Care Code Acute Code for Chg Fwd Diagnoses Acute hyponatremia E87.1 History of CVA (cerebrovascular accident) Z86.73 Atrial fibrillation with rapid ventricular response I48.91 Ventricular arrhythmia I49.9 Deep vein thrombosis (DVT) of right upper extremity I82.621 Stage IV malignant neoplasm of esophagus C15.9
[2023-06-11 13:20] LABS: Osmolality Serum 263 mOsm/kg (278-305)
[2023-06-11 16:09] LABS: Osmolality Urine 556 mOsm/kg (50-1200)
== END 2023-06-10 17:10 | disposition home or self-care (01) | DRG 309 ==
LOC: ER 19:17 → CSU 20:41
PROVIDERS: Emergency Medicine; Admitting Provider Internal Medicine; Emergency Provider Family Medicine; PCP Family Medicine; Visit Provider Internal Medicine
DX: I48.0 Paroxysmal atrial fibrillation (principal); C15.9 Malignant neoplasm of esophagus, unspecified; E22.2 Syndrome of inappropriate secretion of antidiuretic hormone; C79.51 Secondary malignant neoplasm of bone; Z86.73 Personal history of transient ischemic attack (TIA), and cerebral infarction without residual deficits; I10 Essential (primary) hypertension; E11.9 Type 2 diabetes mellitus without complications; E78.5 Hyperlipidemia, unspecified; Z79.899 Other long term (current) drug therapy; Z86.718 Personal history of other venous thrombosis and embolism; Z82.49 Family history of ischemic heart disease and other diseases of the circulatory system; Z87.891 Personal history of nicotine dependence; Z79.02 Long term (current) use of antithrombotics/antiplatelets; Z79.01 Long term (current) use of anticoagulants; Z79.891 Long term (current) use of opiate analgesic; D64.9 Anemia, unspecified; W19.XXXA Unspecified fall, initial encounter; E78.00 Pure hypercholesterolemia, unspecified
CPT/HCPCS: 36415; 71045; 71275; 80048; 80053; 81003; 83735; 83880; 83930; 83935; 84295; 84300; 84443; 84484; 84550; 85025; 85610; 93005; 93306; 93880; 96365; 96375; 96376; 99285; A4222; G0378; J0282; J3490; J7030; J7040; J7060; P9046; Q3014; Q9967

== ENCOUNTER 2023-08-27 09:00 | Oncology outpatient (recurring) (ONCR) | payer MEDICARE, OTHER, SELFPAY ==
[2023-08-23 13:46] VITALS: BMI 22.7
[2023-08-23 13:47] VITALS: BP 99/63; PULSE 76; RESP 16; TEMP 36; O2SAT 94
[2023-08-23 14:10] LABS: Alanine Aminotransferase 22 U/L (0-41); Albumin Level 2.7 g/dL (3.5-5.2); Alkaline Phosphatase 142 U/L (40-130); Anion Gap 12.3 (5-19); Aspartate Amino Transferase 22 U/L (0-40); Blood Urea Nitrogen 6 mg/dL (8-23); Calcium 8.6 mg/dL (8.5-10.5); Carbon Dioxide 27 mmol/L (22-29); Chloride 95 mmol/L (98-107); Globulin 2.9 g/dL (1.3-4.6); Glucose 99 mg/dL (65-115); Osmolality Calculated 270 mOsm/kg (285-295); Potassium 3.3 mmol/L (3.5-5.1); Sodium 131 mmol/L (136-145); Total Bilirubin 0.2 mg/dL (0.15-1.2); Total Protein 5.6 g/dL (6.6-8.7)
[2023-08-23 15:45] VITALS: BP 95/49; PULSE 72; RESP 18; TEMP 36.6; O2SAT 95
[2023-08-24 09:18] VITALS: BP 94/62; PULSE 66; RESP 18; TEMP 36.6; O2SAT 92
--- NOTE | 2023-08-24 09:21 | PC.NURSE ---
Pt to GI infusions for hydration. Port to left chest accessed per protocol. Good blood return noted and flushed without difficulty. Patient requests port to be left in place for the next 3 days of hydration instead of being accessed daily. Hydration infusion without difficulty. Warm blankets provided. Call light within reach.
[2023-08-25 09:00] VITALS: BP 96/59; PULSE 60; RESP 17; TEMP 36.8; O2SAT 94
[2023-08-26 08:55] VITALS: BP 98/61; PULSE 57; RESP 17; TEMP 36.6; O2SAT 96
== END 2023-08-27 23:59 | disposition home or self-care (01) ==
LOC: ONCMED 08-28 06:40
PROVIDERS: Internal Medicine; PCP Family Medicine; Visit Provider Family Medicine
DX: Z53.9 Procedure and treatment not carried out, unspecified reason (principal)
CPT/HCPCS: 80053; 96360; 96361; J1642; J7030

== ENCOUNTER 2023-09-26 14:00 | Oncology outpatient (recurring) (ONCR) | payer MEDICARE, OTHER, SELFPAY ==
[2023-08-27 08:48] VITALS: BP 108/61; PULSE 75; RESP 16; TEMP 36.6; O2SAT 96
[2023-08-27] MEDS: sodium chloride 0.9% 1,000 ML 999 ML IV (08:55)
[2023-08-27] MEDS: sodium chloride 0.9% 500 ML 999 ML IV (09:52)
[2023-08-29 14:33] VITALS: BP 95/59; PULSE 70; RESP 14; TEMP 36.8; O2SAT 95
[2023-08-29 16:54] VITALS: BP 106/67; PULSE 67; RESP 17; TEMP 36.5; O2SAT 94
[2023-08-30 13:55] VITALS: BP 124/78; PULSE 78; RESP 18; TEMP 36.6; O2SAT 97
[2023-08-30 15:35] VITALS: BP 112/78; PULSE 78; RESP 18; TEMP 36.6; O2SAT 98
[2023-09-07] MEDS: sodium chloride 0.9% 1,000 ML 999 ML IV (09:28)
[2023-09-07 09:31] VITALS: BP 110/73; PULSE 78; RESP 17; TEMP 36.7; O2SAT 96
[2023-09-11] MEDS: sodium chloride 0.9% 500 ML 999 ML IV (15:14)
[2023-09-11] MEDS: sodium chloride 0.9% 1,000 ML 999 ML IV (15:45)
[2023-09-11 16:31] VITALS: BP 112/68; PULSE 66; RESP 14; TEMP 37.4; O2SAT 97
[2023-09-21] MEDS: sodium chloride 0.9% 1,000 ML 999 ML IV (09:09)
[2023-09-21 09:13] VITALS: BP 94/63; PULSE 77; RESP 17; TEMP 36.7; O2SAT 95
[2023-09-21 10:40] VITALS: BP 116/72; PULSE 75; RESP 17; TEMP 36.6; O2SAT 94
[2023-09-26] MEDS: sodium chloride 0.9% 1,000 ML 999 ML IV (15:58)
[2023-09-26 17:31] VITALS: BP 110/72; PULSE 82; RESP 17; O2SAT 95
== END 2023-09-26 23:59 | disposition home or self-care (01) ==
PROVIDERS: PCP Family Medicine; Visit Provider Family Medicine
DX: C15.8 Malignant neoplasm of overlapping sites of esophagus (principal); Z53.9 Procedure and treatment not carried out, unspecified reason
CPT/HCPCS: 96360; 96361; 96365; 96366; J1642; J7030; J7040

== ENCOUNTER 2023-10-19 09:33 | Oncology outpatient (recurring) (ONCR) | payer OTHER, SELFPAY ==
[2023-09-28] MEDS: sodium chloride 0.9% 1,000 ML 999 ML IV (08:47)
[2023-09-28 09:37] VITALS: BP 104/61; PULSE 65; RESP 16; TEMP 36.8; O2SAT 93
[2023-10-05 09:22] VITALS: BMI 19.7
[2023-10-05 09:23] VITALS: BP 95/61; PULSE 80; RESP 16; TEMP 36.6; O2SAT 95
[2023-10-05] MEDS: sodium chloride 0.9% 1,000 ML 999 ML IV (09:30)
[2023-10-10] MEDS: sodium chloride 0.9% 1,000 ML 999 ML IV (15:59)
[2023-10-12] MEDS: sodium chloride 0.9% 1,000 ML 999 ML IV (10:13)
[2023-10-12 10:28] VITALS: BP 103/66; PULSE 95; RESP 18; TEMP 36.4; O2SAT 92
[2023-10-19] MEDS: sodium chloride 0.9% 1,000 ML 999 ML IV (09:49)
[2023-10-19 09:52] VITALS: BP 90/50; PULSE 82; RESP 14; O2SAT 90
[2023-10-19 10:46] VITALS: BP 98/54; PULSE 86; RESP 16; O2SAT 90
== END 2023-10-25 23:59 | disposition home or self-care (01) ==
PROVIDERS: PCP Family Medicine; Visit Provider Family Medicine
DX: Z53.9 Procedure and treatment not carried out, unspecified reason (principal); E86.0 Dehydration
CPT/HCPCS: 96360; J1642; J7030